=== PATIENT | female | born 1995 | race Caucasian/White ===

== ENCOUNTER 2018-01-29 18:17 | Emergency (ER) | payer MEDICAID ==
[~2018-01-29] VITALS: Ht 160 cm; Wt 80.0 kg
[~2018-01-29 18:17] MED LIST: PROC-8 PEG; [UNRECOGNIZED DRUG - CODE] PO
[2018-01-29 19:04] LABS: BASOPHILS % (AUTO) 0.5 % (0-1); EOSINOPHILS # (AUTO) 0.5 X10'3 (0-0.9); EOSINOPHILS % (AUTO) 5.5 % (0-6); HEMATOCRIT 42.5 % (35.0-45.0); HEMOGLOBIN 14.8 g/dl (12.0-16.0); LYMPHOCYTES # (AUTO) 1.8 X10'3 (1.1-4.8); LYMPHOCYTES % (AUTO) 19.8 % (21-51); MEAN CORPUSCULAR HEMOGLOBIN 30.7 PG (27.0-31.0); MEAN CORPUSCULAR HGB CONC 34.9 % (33.0-36.5); MEAN CORPUSCULAR VOLUME 88.1 FL (78-98); MEAN PLATELET VOLUME 8.3 FL (7.4-10.4); MONOCYTES # (AUTO) 0.8 X10'3 (0-0.9); MONOCYTES % (AUTO) 9.1 % (2-12); NEUTROPHILS # (AUTO) 5.8 X10'3 (1.8-7.7); NEUTROPHILS % (AUTO) 65.1 % (42-75); PLATELET COUNT 256 X10'3 (140-440); RED BLOOD COUNT 4.83 X10'6 (4.20-5.60); RED CELL DISTRIBUTION WIDTH 12.6 % (11.5-14.5); WHITE BLOOD COUNT 8.9 X10'3 (4.5-11.0)
[2018-01-29 19:24] LABS: ALANINE AMINOTRANSFERASE 28 U/L (12-78); ALBUMIN 4.2 G/DL (3.4-5.0); ALBUMIN/GLOBULIN RATIO 1.1 (1.1-1.5); ALKALINE PHOSPHATASE 80 IU/L (46-116); ANION GAP 11 (8-16); ASPARTATE AMINO TRANSFERASE 17 U/L (10-37); BILIRUBIN,TOTAL 0.3 MG/DL (0.1-1.0); BLOOD UREA NITROGEN 11 MG/DL (7-18); BUN/CREATININE RATIO 15.5 (6.6-38.0); CALCIUM 9.2 MG/DL (8.5-10.1); CHLORIDE 105 MMOL/L (99-107); CREATININE 0.71 MG/DL (0.40-0.90); GLUCOSE 98 MG/DL (70-104); POTASSIUM 4.2 MMOL/L (3.5-5.1); SODIUM 141 MMOL/L (135-145); TOTAL PROTEIN 8.1 G/DL (6.4-8.2); eGFR > 90 ML/MIN
[2018-01-29 19:34] LABS: CLARITY,URINE CLOUDY (Clear); COLOR,URINE YELLOW (Yellow); GLUCOSE, URINE NEGATIVE (Neg); KETONES,URINE NEGATIVE (Neg); LEUKOCYTE ESTERASE ,URINE NEGATIVE (Neg); NITRITES, URINE NEGATIVE (Neg); OCCULT BLOOD,URINE TRACE-INTACT (Neg); PROTEIN,URINE NEGATIVE (Neg); UROBILINOGEN,URINE 0.2 E.U/dL (0.2-1.0)
[2018-01-29 19:35] LABS: UA COLLECTION TYPE CLN CATCH MIDSTREAM
[2018-01-29 19:44] LABS: MUCUS STRANDS MANY /LPF (Neg); RBC,URINE 0-2 /HPF (0-2); SQUAMOUS EPITHELIAL CELL,UR MANY /LPF (FEW)
[2018-01-29 19:45] LABS: BACTERIA,URINE 3+ /HPF (Neg)
[2018-01-29] MEDS ORDERED: SPIR25TA3 PO (22:03)
[2018-01-29] MEDS ORDERED: METF500T PO (22:04)
[2018-01-29] MEDS ORDERED: ondansetron/PF 4mg/2ml inj IV ONE ×2 (22:15→23:55)
[2018-01-29] MEDS ORDERED: normal saline 1000ML IV soln IVB ONE (22:15)
[2018-01-29] MEDS ORDERED: ketorolac trometh. 30mg/ml inj. IV ONE (22:15)
[2018-01-29] MEDS ORDERED: HYDROmorphone 1 mg/ml syringe IV ONE (22:15)
[2018-01-29] MEDS ORDERED: HYDROmorphone inj. 0.5 MG/0.5 ML DISP.SYRIN IV ONE (22:20)
[2018-01-29] MEDS ORDERED: FLO0.4C PO (23:36)
[2018-01-29] MEDS ORDERED: HYDR-3965 PO (23:36)
[2018-01-30 00:03] VITALS: BP 133/86
== END 2018-01-30 00:09 | disposition home or self-care (01) ==
LOC: ER 18:18
DX: N20.0 Calculus of kidney (principal); G43.909 Migraine, unspecified, not intractable, without status migrainosus; Z79.84 Long term (current) use of oral hypoglycemic drugs; Z79.899 Other long term (current) drug therapy
CPT/HCPCS: 36415; 74176; 80053; 81001; 85025; 85610; 96374; 96375; 96376; 99285; J1170; J1885; J2405; J7030

== ENCOUNTER 2018-02-26 17:57 | Emergency (ER) | payer MEDICAID ==
[~2018-02-26] VITALS: Ht 160 cm; Wt 88.4 kg
[~2018-02-26 17:57] MED LIST changes: +FLO0.4C PO; +HYDR-3965 PO; +METF500T PO; +SPIR25TA3 PO
[2018-02-26 18:31] LABS: BASOPHILS # (AUTO) 0.1 X10'3 (0-0.2); BASOPHILS % (AUTO) 0.8 % (0-1); EOSINOPHILS # (AUTO) 0.3 X10'3 (0-0.9); EOSINOPHILS % (AUTO) 2.9 % (0-6); HEMATOCRIT 41.1 % (35.0-45.0); HEMOGLOBIN 14.1 g/dl (12.0-16.0); LYMPHOCYTES # (AUTO) 2.5 X10'3 (1.1-4.8); LYMPHOCYTES % (AUTO) 26.7 % (21-51); MEAN CORPUSCULAR HEMOGLOBIN 30.8 PG (27.0-31.0); MEAN CORPUSCULAR HGB CONC 34.4 % (33.0-36.5); MEAN CORPUSCULAR VOLUME 89.6 FL (78-98); MEAN PLATELET VOLUME 8.6 FL (7.4-10.4); MONOCYTES # (AUTO) 0.6 X10'3 (0-0.9); MONOCYTES % (AUTO) 6.8 % (2-12); NEUTROPHILS % (AUTO) 62.8 % (42-75); PLATELET COUNT 278 X10'3 (140-440); RED BLOOD COUNT 4.59 X10'6 (4.20-5.60); RED CELL DISTRIBUTION WIDTH 12.2 % (11.5-14.5); WHITE BLOOD COUNT 9.5 X10'3 (4.5-11.0)
[2018-02-26 18:40] LABS: INR 0.9 INR; PROTHROMBIN TIME 9.8 SECONDS (9.0-12.0)
[2018-02-26 18:44] LABS: CLARITY,URINE CLOUDY (Clear); COLOR,URINE YELLOW (Yellow); GLUCOSE, URINE NEGATIVE (Neg); KETONES,URINE NEGATIVE (Neg); LEUKOCYTE ESTERASE ,URINE MODERATE (Neg); NITRITES, URINE NEGATIVE (Neg); OCCULT BLOOD,URINE NEGATIVE (Neg); PH,URINE 5.5 (4.8-8.0); PROTEIN,URINE NEGATIVE (Neg); UROBILINOGEN,URINE 0.2 E.U/dL (0.2-1.0)
[2018-02-26 18:49] LABS: ALANINE AMINOTRANSFERASE 22 U/L (12-78); ALBUMIN 3.9 G/DL (3.4-5.0); ALBUMIN/GLOBULIN RATIO 1.1 (1.1-1.5); ALKALINE PHOSPHATASE 75 IU/L (46-116); ANION GAP 8 (8-16); ASPARTATE AMINO TRANSFERASE 13 U/L (10-37); BILIRUBIN,TOTAL 0.2 MG/DL (0.1-1.0); BLOOD UREA NITROGEN 12 MG/DL (7-18); CALCIUM 9.1 MG/DL (8.5-10.1); CHLORIDE 104 MMOL/L (99-107); GLUCOSE 92 MG/DL (70-104); SODIUM 140 MMOL/L (135-145); TOTAL CARBON DIOXIDE 27.6 MMOL/L (24-32); TOTAL PROTEIN 7.5 G/DL (6.4-8.2); eGFR 89 ML/MIN
[2018-02-26] MEDS ORDERED: ondansetron/PF 4mg/2ml inj IV STA (18:49)
[2018-02-26] MEDS ORDERED: normal saline 1000ml 1,000 ML IV ONE (18:50)
[2018-02-26 18:52] LABS: MUCUS STRANDS FEW /LPF (Neg); SQUAMOUS EPITHELIAL CELL,UR MANY /LPF (FEW)
[2018-02-26 18:53] LABS: BACTERIA,URINE 2+ /HPF (Neg); WBC,URINE 20-30 /HPF (0-4)
[2018-02-26 18:59] LABS: LIPASE 212 U/L (73-393)
[2018-02-26 18:59] LABS: URINE HCG NEGATIVE (NEG)
[2018-02-26 19:03] LABS: UA COLLECTION TYPE CLN CATCH MIDSTREAM
[2018-02-26] MEDS ORDERED: ketorolac tromethamine 15mg/ml inj. IV ONE (20:30)
[2018-02-26] MEDS ORDERED: proCHLORperazine 10 MG/2 ml inj IV ONE (20:30)
[2018-02-26] MEDS ORDERED: diphenhydrAMINE 50 mg/ml inj IV ONE (20:30)
[2018-02-26] MEDS ORDERED: normal saline 1000ML IV soln IVB ONE (20:30)
[2018-02-26 22:04] LABS: CLARITY,URINE SLIGHTLY CLOUDY (Clear); COLOR,URINE YELLOW (Yellow); GLUCOSE, URINE NEGATIVE (Neg); KETONES,URINE NEGATIVE (Neg); LEUKOCYTE ESTERASE ,URINE SMALL (Neg); NITRITES, URINE NEGATIVE (Neg); OCCULT BLOOD,URINE TRACE-INTACT (Neg); PH,URINE 5.5 (4.8-8.0); PROTEIN,URINE NEGATIVE (Neg); UROBILINOGEN,URINE 0.2 E.U/dL (0.2-1.0)
[2018-02-26 22:13] LABS: UA COLLECTION TYPE CLN CATCH MIDSTREAM
[2018-02-26 22:14] LABS: SQUAMOUS EPITHELIAL CELL,UR FEW /LPF (FEW)
[2018-02-26 22:15] LABS: BACTERIA,URINE 2+ /HPF (Neg)
[2018-02-26 22:32] VITALS: BP 135/90
== END 2018-02-26 22:33 | disposition home or self-care (01) ==
LOC: ER 17:58
DX: K80.20 Calculus of gallbladder without cholecystitis without obstruction (principal); G43.909 Migraine, unspecified, not intractable, without status migrainosus; Z79.899 Other long term (current) drug therapy
CPT/HCPCS: 36415; 71046; 76700; 80053; 81001; 81025; 83690; 85025; 85610; 87088; 96361; 96374; 96375; 99285; J0780; J1200; J1885; J2405; J7030

== ENCOUNTER 2019-02-22 21:00 | Emergency (ER) | payer MEDICAID ==
[~2019-02-22] VITALS: Ht 162.6 cm; Wt 98.7 kg
[~2019-02-22 21:00] MED LIST changes: -FLO0.4C PO; -HYDR-3965 PO; +IBUP-1986 PO; +ONDA8TAB9 PO; -SPIR25TA3 PO; +SPIR25TA5 PO
[2019-02-22] MEDS ORDERED: metoprolol tartrate 1mg/ml inj IV PRN (21:50)
[2019-02-22] MEDS ORDERED: METO50TA17 PO (21:50)
[2019-02-22 21:59] LABS: BASOPHILS # (AUTO) 0.1 X10'3 (0-0.2); BASOPHILS % (AUTO) 0.7 % (0-1); EOSINOPHILS # (AUTO) 0.5 X10'3 (0-0.9); EOSINOPHILS % (AUTO) 4.1 % (0-6); HEMATOCRIT 41.2 % (35.0-45.0); HEMOGLOBIN 13.8 g/dl (12.0-16.0); LYMPHOCYTES # (AUTO) 3.2 X10'3 (1.1-4.8); LYMPHOCYTES % (AUTO) 28.2 % (21-51); MEAN CORPUSCULAR HEMOGLOBIN 29.1 PG (27.0-31.0); MEAN CORPUSCULAR HGB CONC 33.5 g/dL (33.0-36.5); MEAN CORPUSCULAR VOLUME 86.9 FL (78-98); MEAN PLATELET VOLUME 8.2 FL (7.4-10.4); MONOCYTES # (AUTO) 0.9 X10'3 (0-0.9); MONOCYTES % (AUTO) 8.4 % (2-12); NEUTROPHILS # (AUTO) 6.6 X10'3 (1.8-7.7); NEUTROPHILS % (AUTO) 58.6 % (42-75); PLATELET COUNT 288 X10'3 (140-440); RED BLOOD COUNT 4.74 X10'6 (4.20-5.60); RED CELL DISTRIBUTION WIDTH 12.8 % (11.5-14.5); WHITE BLOOD COUNT 11.2 X10'3 (4.5-11.0)
[2019-02-22 22:07] LABS: ALANINE AMINOTRANSFERASE 77 U/L (12-78); ALBUMIN 3.8 G/DL (3.4-5.0); ALBUMIN/GLOBULIN RATIO 1.1 (1.1-1.5); ALKALINE PHOSPHATASE 93 IU/L (46-116); ANION GAP 7 (8-16); ASPARTATE AMINO TRANSFERASE 49 U/L (10-37); BILIRUBIN,TOTAL 0.2 MG/DL (0.1-1.0); BLOOD UREA NITROGEN 10 MG/DL (7-18); BUN/CREATININE RATIO 15.2 (6.6-38.0); CALCIUM 8.7 MG/DL (8.5-10.1); CHLORIDE 105 MMOL/L (99-107); CREATININE 0.66 MG/DL (0.40-0.90); GLUCOSE 92 MG/DL (70-104); POTASSIUM 3.5 MMOL/L (3.5-5.1); SODIUM 138 MMOL/L (135-145); TOTAL CARBON DIOXIDE 26.2 MMOL/L (24-32); TOTAL PROTEIN 7.4 G/DL (6.4-8.2); eGFR > 90 ML/MIN
[2019-02-22 22:09] LABS: INR 0.9 INR; PARTIAL THROMBOPLASTIN TIME 28 SECONDS (22-32)
[2019-02-22 22:57] VITALS: BP 153/98
== END 2019-02-22 22:58 | disposition home or self-care (01) ==
LOC: ER 21:00
DX: R00.0 Tachycardia, unspecified (principal); G43.909 Migraine, unspecified, not intractable, without status migrainosus; Z90.49 Acquired absence of other specified parts of digestive tract; Z79.899 Other long term (current) drug therapy
CPT/HCPCS: 36415; 71045; 80053; 84484; 85025; 85610; 85730; 93005; 96374; 99284; J3490

== ENCOUNTER 2020-07-27 15:09 | Emergency (ER) | payer MEDICAID ==
[~2020-07-27] VITALS: Ht 160 cm; Wt 103.0 kg
[~2020-07-27 15:09] MED LIST changes: +METO50TA17 PO
[2020-07-27 15:56] LABS: BASOPHILS # (AUTO) 0.1 X10'3 (0-0.2); BASOPHILS % (AUTO) 0.8 % (0-1); EOSINOPHILS # (AUTO) 0.3 X10'3 (0-0.9); HEMATOCRIT 41.4 % (35.0-45.0); LYMPHOCYTES # (AUTO) 2.6 X10'3 (1.1-4.8); LYMPHOCYTES % (AUTO) 23.4 % (21-51); MEAN CORPUSCULAR HEMOGLOBIN 29.6 PG (27.0-31.0); MEAN CORPUSCULAR HGB CONC 33.9 g/dL (33.0-36.5); MEAN CORPUSCULAR VOLUME 87.4 FL (78-98); MEAN PLATELET VOLUME 8.5 FL (7.4-10.4); MONOCYTES # (AUTO) 0.8 X10'3 (0-0.9); MONOCYTES % (AUTO) 7.1 % (2-12); NEUTROPHILS # (AUTO) 7.4 X10'3 (1.8-7.7); NEUTROPHILS % (AUTO) 65.7 % (42-75); PLATELET COUNT 261 X10'3 (140-440); RED BLOOD COUNT 4.74 X10'6 (4.20-5.60); RED CELL DISTRIBUTION WIDTH 12.4 % (11.5-14.5); WHITE BLOOD COUNT 11.3 X10'3 (4.5-11.0)
[2020-07-27] MEDS ORDERED: ondansetron/PF 4mg/2ml inj IV ONE ×2 (16:00→17:35)
[2020-07-27] MEDS ORDERED: normal saline 1000ML IV soln IVB ONE (16:00)
[2020-07-27 16:06] LABS: ALANINE AMINOTRANSFERASE 44 U/L (12-78); ALBUMIN/GLOBULIN RATIO 1.1 (1.1-1.5); ALKALINE PHOSPHATASE 95 IU/L (46-116); ANION GAP 9 (8-16); ASPARTATE AMINO TRANSFERASE 25 U/L (10-37); BILIRUBIN,TOTAL 0.3 MG/DL (0.1-1.0); BLOOD UREA NITROGEN 10 MG/DL (7-18); BUN/CREATININE RATIO 13.9 (6.6-38.0); CALCIUM 8.6 MG/DL (8.5-10.1); CHLORIDE 106 MMOL/L (99-107); CREATININE 0.72 MG/DL (0.40-0.90); GLUCOSE 89 MG/DL (70-104); LIPASE 240 U/L (73-393); POTASSIUM 3.6 MMOL/L (3.5-5.1); SODIUM 137 MMOL/L (135-145); TOTAL CARBON DIOXIDE 22.1 MMOL/L (24-32); TOTAL PROTEIN 7.6 G/DL (6.4-8.2); eGFR > 90 ML/MIN
[2020-07-27 16:07] LABS: URINE HCG NEGATIVE (NEG)
[2020-07-27 16:08] LABS: COLOR,URINE YELLOW (Yellow); GLUCOSE, URINE NEGATIVE (Neg); KETONES,URINE TRACE mg/dl (Neg); LEUKOCYTE ESTERASE ,URINE NEGATIVE (Neg); NITRITES, URINE NEGATIVE (Neg); OCCULT BLOOD,URINE NEGATIVE (Neg); PH,URINE 5.5 (4.8-8.0); PROTEIN,URINE NEGATIVE (Neg); UROBILINOGEN,URINE 0.2 E.U/dL (0.2-1.0)
[2020-07-27 16:13] LABS: CLARITY,URINE SLIGHTLY CLOUDY (Clear); UA COLLECTION TYPE CLN CATCH MIDSTREAM
[2020-07-27 16:14] LABS: BACTERIA,URINE 1+ /HPF (Neg); MUCUS STRANDS MANY /LPF (Neg); RBC,URINE NONE SEEN /HPF (0-2); SQUAMOUS EPITHELIAL CELL,UR MANY /LPF (FEW); WBC,URINE 0-4 /HPF (0-4)
[2020-07-27] MEDS: morphine 4 MG/ML inj SYRINge IV PRN ×2 (16:22→18:18)
--- NOTE | 2020-07-27 17:02 | NUR ---
US TECH AT BEDSIDE.
[2020-07-27] MEDS ORDERED: proMETHazine DM oral syrup 5ml UD PO ONE (17:45)
[2020-07-27] MEDS ORDERED: diphenhydrAMINE 25mg capsule PO ONE (17:45)
[2020-07-27 18:43] VITALS: BP 136/72
--- NOTE | 2020-07-27 18:44 | NUR ---
pts hr is high at 128, i checked with and this his her baseline, ok with d/c
== END 2020-07-27 18:45 | disposition home or self-care (01) ==
LOC: ER 15:10
DX: R10.2 Pelvic and perineal pain (principal); R10.32 Left lower quadrant pain; R10.31 Right lower quadrant pain; R11.0 Nausea; G43.909 Migraine, unspecified, not intractable, without status migrainosus; Z90.49 Acquired absence of other specified parts of digestive tract; Z98.890 Other specified postprocedural states; Z79.899 Other long term (current) drug therapy
CPT/HCPCS: 36415; 76830; 76856; 80053; 81001; 81025; 83690; 85025; 93976; 96374; 96375; 96376; 99284; J2270; J2405; J7030; Q0163

== ENCOUNTER 2021-06-29 15:52 | Emergency (ER) | payer MEDICAID ==
[~2021-06-29] VITALS: Ht 160 cm; Wt 86.4 kg
[2021-06-29 16:56] LABS: BASOPHILS # (AUTO) 0.1 X10'3 (0-0.2); BASOPHILS % (AUTO) 0.6 % (0-1); EOSINOPHILS # (AUTO) 0.4 X10'3 (0-0.9); EOSINOPHILS % (AUTO) 3.4 % (0-6); HEMATOCRIT 43.9 % (35.0-45.0); HEMOGLOBIN 14.8 g/dl (12.0-16.0); LYMPHOCYTES # (AUTO) 2.6 X10'3 (1.1-4.8); LYMPHOCYTES % (AUTO) 25.1 % (21-51); MEAN CORPUSCULAR HEMOGLOBIN 29.9 PG (27.0-31.0); MEAN CORPUSCULAR HGB CONC 33.6 g/dL (33.0-36.5); MEAN CORPUSCULAR VOLUME 89.1 FL (78-98); MEAN PLATELET VOLUME 8.3 FL (7.4-10.4); MONOCYTES % (AUTO) 9.3 % (2-12); NEUTROPHILS # (AUTO) 6.5 X10'3 (1.8-7.7); NEUTROPHILS % (AUTO) 61.6 % (42-75); PLATELET COUNT 279 X10'3 (140-440); RED BLOOD COUNT 4.93 X10'6 (4.20-5.60); RED CELL DISTRIBUTION WIDTH 12.5 % (11.5-14.5); WHITE BLOOD COUNT 10.5 X10'3 (4.5-11.0)
[2021-06-29 17:16] LABS: ALANINE AMINOTRANSFERASE 27 U/L (12-78); ALBUMIN 4.4 G/DL (3.4-5.0); ALBUMIN/GLOBULIN RATIO 1.2 (1.1-1.5); ALKALINE PHOSPHATASE 97 IU/L (46-116); ANION GAP 12 (8-16); ASPARTATE AMINO TRANSFERASE 15 U/L (10-37); BILIRUBIN,TOTAL 0.3 MG/DL (0.1-1.0); BLOOD UREA NITROGEN 11 MG/DL (7-18); BUN/CREATININE RATIO 15.3 (6.6-38.0); CALCIUM 8.8 MG/DL (8.5-10.1); CHLORIDE 108 MMOL/L (99-107); CREATININE 0.72 MG/DL (0.40-0.90); GLUCOSE 91 MG/DL (70-104); LIPASE 234 U/L (73-393); POTASSIUM 3.6 MMOL/L (3.5-5.1); SODIUM 143 MMOL/L (135-145); TOTAL CARBON DIOXIDE 22.7 MMOL/L (24-32); TOTAL PROTEIN 8.2 G/DL (6.4-8.2); eGFR > 90 ML/MIN
[2021-06-29] MEDS ORDERED: ketorolac tromethamine 15mg/ml inj. IM ONE (18:10)
[2021-06-29 18:23] LABS: URINE HCG NEGATIVE (NEG)
[2021-06-29 18:49] LABS: UA COLLECTION TYPE CLN CATCH MIDSTREAM
[2021-06-29 18:50] LABS: CLARITY,URINE SLIGHTLY CLOUDY (Clear); COLOR,URINE YELLOW (Yellow); GLUCOSE, URINE NEGATIVE (Neg); PH,URINE 6.5 (4.8-8.0); PROTEIN,URINE NEGATIVE (Neg)
[2021-06-29 18:51] LABS: BACTERIA,URINE NONE SEEN /HPF (Neg); KETONES,URINE NEGATIVE (Neg); LEUKOCYTE ESTERASE ,URINE NEGATIVE (Neg); MUCUS STRANDS FEW /LPF (Neg); NITRITES, URINE NEGATIVE (Neg); OCCULT BLOOD,URINE NEGATIVE (Neg); RBC,URINE NONE SEEN /HPF (0-2); SQUAMOUS EPITHELIAL CELL,UR MODERATE /LPF (FEW); UROBILINOGEN,URINE 0.2 E.U/dL (0.2-1.0); WBC,URINE 0-4 /HPF (0-4)
[2021-06-29 20:49] VITALS: BP 128/88
== END 2021-06-29 20:50 | disposition home or self-care (01) ==
LOC: ER 15:53
DX: R10.31 Right lower quadrant pain (principal); R10.2 Pelvic and perineal pain; G43.909 Migraine, unspecified, not intractable, without status migrainosus; Z90.49 Acquired absence of other specified parts of digestive tract; Z79.899 Other long term (current) drug therapy
CPT/HCPCS: 36415; 74176; 76856; 80053; 81001; 81025; 83690; 85025; 93976; 96372; 99285; J1885

== ENCOUNTER 2022-03-05 14:27 | Emergency (ER) | payer MEDICAID ==
[~2022-03-05] VITALS: Ht 160 cm; Wt 77.3 kg
[2022-03-05 14:37] VITALS: BP 157/92
[2022-03-05] MEDS ORDERED: GUAI400T92 PO (17:10)
[2022-03-05] MEDS ORDERED: ALBU8HFA PO (17:10)
[2022-03-05] MEDS ORDERED: AMOX-117 PO (17:10)
[2022-03-05] MEDS ORDERED: amox tr/potassium clavulanate 875/125mg TAB PO ONE (17:15)
--- NOTE | 2022-03-05 17:52 | NUR ---
po med given
== END 2022-03-05 17:53 | disposition home or self-care (01) ==
LOC: ER 14:28
DX: H66.93 Otitis media, unspecified, bilateral (principal); H92.03 Otalgia, bilateral; J01.00 Acute maxillary sinusitis, unspecified; J06.9 Acute upper respiratory infection, unspecified; R05.9 Cough, unspecified; R06.02 Shortness of breath; G43.909 Migraine, unspecified, not intractable, without status migrainosus; Z90.49 Acquired absence of other specified parts of digestive tract; Z98.890 Other specified postprocedural states; Z79.2 Long term (current) use of antibiotics; Z79.899 Other long term (current) drug therapy
CPT/HCPCS: 99283; 99284

== ENCOUNTER 2022-03-26 17:03 | Emergency (ER) | payer MEDICAID ==
[~2022-03-26] VITALS: Ht 160 cm; Wt 90.0 kg
[~2022-03-26 17:03] MED LIST changes: +ALBU8HFA PO; +GUAI400T92 PO
[2022-03-26 17:32] LABS: BASOPHILS # (AUTO) 0.1 X10'3 (0-0.2); BASOPHILS % (AUTO) 0.8 % (0-1); EOSINOPHILS # (AUTO) 0.8 X10'3 (0-0.9); EOSINOPHILS % (AUTO) 7.2 % (0-6); HEMOGLOBIN 14.7 g/dl (12.0-16.0); LYMPHOCYTES # (AUTO) 2.5 X10'3 (1.1-4.8); LYMPHOCYTES % (AUTO) 24.1 % (21-51); MEAN CORPUSCULAR HEMOGLOBIN 29.4 PG (27.0-31.0); MEAN CORPUSCULAR HGB CONC 34.1 g/dL (33.0-36.5); MEAN PLATELET VOLUME 8.1 FL (7.4-10.4); MONOCYTES # (AUTO) 0.7 X10'3 (0-0.9); NEUTROPHILS # (AUTO) 6.4 X10'3 (1.8-7.7); NEUTROPHILS % (AUTO) 60.9 % (42-75); PLATELET COUNT 295 X10'3 (140-440); RED CELL DISTRIBUTION WIDTH 12.5 % (11.5-14.5); WHITE BLOOD COUNT 10.5 X10'3 (4.5-11.0)
[2022-03-26 17:49] LABS: ALANINE AMINOTRANSFERASE 21 U/L (12-78); ALBUMIN 4.4 G/DL (3.4-5.0); ALBUMIN/GLOBULIN RATIO 1.2 (1.1-1.5); ALKALINE PHOSPHATASE 83 IU/L (46-116); AMYLASE 71 U/L (25-115); ANION GAP 13 (8-16); ASPARTATE AMINO TRANSFERASE 14 U/L (10-37); BILIRUBIN,TOTAL 0.3 MG/DL (0.1-1.0); BLOOD UREA NITROGEN 10 MG/DL (7-18); BUN/CREATININE RATIO 13.9 (6.6-38.0); CHLORIDE 103 MMOL/L (99-107); CREATININE 0.72 MG/DL (0.40-0.90); GLUCOSE 99 MG/DL (70-104); LIPASE 212 U/L (73-393); POTASSIUM 4.1 MMOL/L (3.5-5.1); SODIUM 140 MMOL/L (135-145); TOTAL CARBON DIOXIDE 23.9 MMOL/L (24-32); TOTAL PROTEIN 8.1 G/DL (6.4-8.2); eGFR > 90 ML/MIN
[2022-03-26 19:48] LABS: CLARITY,URINE CLEAR (Clear); COLOR,URINE YELLOW (Yellow); GLUCOSE, URINE NEGATIVE (Neg); KETONES,URINE NEGATIVE (Neg); LEUKOCYTE ESTERASE ,URINE SMALL (Neg); NITRITES, URINE NEGATIVE (Neg); OCCULT BLOOD,URINE NEGATIVE (Neg); PH,URINE 5.5 (4.8-8.0); PROTEIN,URINE NEGATIVE (Neg); UROBILINOGEN,URINE 0.2 E.U/dL (0.2-1.0)
[2022-03-26 19:49] LABS: URINE HCG NEGATIVE (NEG)
[2022-03-26 19:50] LABS: UA COLLECTION TYPE CLN CATCH MIDSTREAM
[2022-03-26 19:57] LABS: BACTERIA,URINE FEW /HPF (Neg); RBC,URINE 0-2 /HPF (0-2); SQUAMOUS EPITHELIAL CELL,UR MANY /LPF (FEW); WBC,URINE 0-4 /HPF (0-4)
[2022-03-26] MEDS ORDERED: cephalexin 250mg capsule PO ONE (21:50)
[2022-03-26] MEDS ORDERED: ONDA4TAB12 PO (22:07)
[2022-03-26] MEDS ORDERED: CEPH-585 PO (22:07)
[2022-03-26 22:09] VITALS: BP 141/100
== END 2022-03-26 22:12 | disposition home or self-care (01) ==
LOC: ER 17:03
DX: N39.0 Urinary tract infection, site not specified (principal); G43.909 Migraine, unspecified, not intractable, without status migrainosus; Z90.49 Acquired absence of other specified parts of digestive tract; Z79.899 Other long term (current) drug therapy
CPT/HCPCS: 36415; 74176; 76856; 80053; 81001; 81025; 82150; 83690; 85025; 93976; 99284

== ENCOUNTER 2022-11-25 21:45 | Emergency (ER) | payer MEDICAID ==
[~2022-11-25] VITALS: Ht 160 cm; Wt 90.9 kg
[~2022-11-25 21:45] MED LIST changes: -ALBU8HFA PO; +CEPH-585 PO; +ONDA4TAB12 PO
[2022-11-25 21:49] VITALS: BP 154/98
[2022-11-26] MEDS ORDERED: acetaminophen 325mg tablet PO ONE (00:55)
[2022-11-26] MEDS ORDERED: ondansetron 4mg rapidly disintigrating tab PO ONE (00:55)
[2022-11-26] MEDS ORDERED: morphine 4 MG/ML inj SYRINge IM ONE (00:55)
[2022-11-26] MEDS ORDERED: ketorolac trometh inj. 60 MG/2 ML VIAL IM ONE (00:55)
[2022-11-26] MEDS ORDERED: orphenadrine citrate 60mg/2ml inj. IM ONE (00:55)
[2022-11-26] MEDS ORDERED: ONDA8TAB13 PO (01:59)
[2022-11-26] MEDS ORDERED: HYDR-3965 PO (01:59)
[2022-11-26] MEDS ORDERED: CYCL-1 PO (01:59)
== END 2022-11-26 02:13 | disposition home or self-care (01) ==
LOC: ER 21:46
DX: M54.2 Cervicalgia (principal); G43.909 Migraine, unspecified, not intractable, without status migrainosus; Z90.49 Acquired absence of other specified parts of digestive tract
CPT/HCPCS: 72040; 96372; 99284; J1885; J2270; J2360

== ENCOUNTER 2023-02-24 22:45 | Emergency (ER) | payer MEDICAID ==
[~2023-02-24] VITALS: Ht 160 cm; Wt 180.0 kg
[~2023-02-24 22:45] MED LIST changes: +CYCL-1 PO; +ONDA8TAB13 PO
[2023-02-24 23:13] LABS: BASOPHILS % (AUTO) 0.2 % (0-1); EOSINOPHILS # (AUTO) 0.1 X10'3 (0-0.9); EOSINOPHILS % (AUTO) 1.2 % (0-6); HEMATOCRIT 43.6 % (35.0-45.0); LYMPHOCYTES # (AUTO) 1.4 X10'3 (1.1-4.8); LYMPHOCYTES % (AUTO) 15.1 % (21-51); MEAN CORPUSCULAR HEMOGLOBIN 30.5 PG (27.0-31.0); MEAN CORPUSCULAR HGB CONC 34.3 g/dL (33.0-36.5); MEAN CORPUSCULAR VOLUME 88.9 FL (78-98); MEAN PLATELET VOLUME 7.9 FL (7.4-10.4); MONOCYTES # (AUTO) 0.7 X10'3 (0-0.9); MONOCYTES % (AUTO) 7.4 % (2-12); NEUTROPHILS % (AUTO) 76.1 % (42-75); PLATELET COUNT 245 X10'3 (140-440); RED CELL DISTRIBUTION WIDTH 12.9 % (11.5-14.5); WHITE BLOOD COUNT 9.2 X10'3 (4.5-11.0)
[2023-02-24 23:27] LABS: ALANINE AMINOTRANSFERASE 22 U/L (12-78); ALBUMIN 3.9 G/DL (3.4-5.0); ALBUMIN/GLOBULIN RATIO 1.1 (1.1-1.5); ALKALINE PHOSPHATASE 76 IU/L (46-116); ANION GAP 10 (8-16); ASPARTATE AMINO TRANSFERASE 12 U/L (10-37); BILIRUBIN,TOTAL 0.4 MG/DL (0.1-1.0); BLOOD UREA NITROGEN 9 MG/DL (7-18); BUN/CREATININE RATIO 12.3 (10.0-20.0); CALCIUM 8.2 MG/DL (8.5-10.1); CHLORIDE 102 MMOL/L (99-107); CREATININE 0.73 MG/DL (0.40-0.90); GLUCOSE 91 MG/DL (70-104); LIPASE 111 U/L (73-393); POTASSIUM 3.3 MMOL/L (3.5-5.1); SODIUM 137 MMOL/L (135-145); TOTAL CARBON DIOXIDE 24.9 MMOL/L (24-32); TOTAL PROTEIN 7.5 G/DL (6.4-8.2); eGFR > 90 ML/MIN
[2023-02-24 23:40] LABS: URINE HCG NEGATIVE (NEG)
[2023-02-24 23:41] LABS: CLARITY,URINE CLEAR (Clear); COLOR,URINE YELLOW (Yellow); GLUCOSE, URINE NEGATIVE (Neg); KETONES,URINE NEGATIVE (Neg); LEUKOCYTE ESTERASE ,URINE NEGATIVE (Neg); NITRITES, URINE NEGATIVE (Neg); OCCULT BLOOD,URINE NEGATIVE (Neg); PROTEIN,URINE NEGATIVE (Neg); UROBILINOGEN,URINE 0.2 E.U/dL (0.2-1.0)
[2023-02-24 23:43] LABS: UA COLLECTION TYPE CLN CATCH MIDSTREAM
[2023-02-24] MEDS ORDERED: normal saline 500ml IV soln 500 ML IV ONE (23:50)
[2023-02-25] MEDS ORDERED: iohexol 300mg/ml 100ml inj. ONE (00:05)
[2023-02-25] MEDS ORDERED: ondansetron/PF 4mg/2ml inj IV ONE (01:05)
[2023-02-25] MEDS ORDERED: POTASSIUM BICARB 20meq eff tab 20 MEQ TABLET.EFF PO SCH (01:05)
[2023-02-25] MEDS ORDERED: ONDA4TAB12 PO (01:05)
[2023-02-25] MEDS ORDERED: pantoprazole 40mg IV 40 MG in normal saline 100ml IV soln 100 ML IV ONE (01:05)
[2023-02-25] MEDS ORDERED: pantoprazole 40MG/NS 100ML BAG 100 ML IV ONE (01:13)
[2023-02-25] MEDS ORDERED: PANTOPRAZOLE IV ONE (01:13)
[2023-02-25] MEDS ORDERED: [UNRECOGNIZED DRUG - OTHER] IV ONE (01:13)
[2023-02-25] MEDS ORDERED: potassium Cl 20 mEq SR tablet PO STA (01:53)
--- NOTE | 2023-02-25 01:53 | NUR ---
pt could not tolerate oral efferk. will try kdur instead
[2023-02-25 02:00] VITALS: BP 128/82
== END 2023-02-25 02:11 | disposition home or self-care (01) ==
LOC: ER 22:46
DX: R11.2 Nausea with vomiting, unspecified (principal); R19.7 Diarrhea, unspecified; G43.909 Migraine, unspecified, not intractable, without status migrainosus; Z90.49 Acquired absence of other specified parts of digestive tract
CPT/HCPCS: 36415; 74177; 80053; 81003; 81025; 83690; 85025; 93005; 96374; 96375; 99285; C9113; J2405; J3490; J7040; Q9967

== ENCOUNTER 2023-04-16 22:11 | Emergency (ER) | payer MEDICAID ==
[~2023-04-16] VITALS: Ht 162.6 cm; Wt 86.3 kg
[~2023-04-16 22:11] MED LIST changes: -CEPH-585 PO
[2023-04-16 22:15] VITALS: BP 110/68
[2023-04-17] MEDS ORDERED: ketorolac trometh inj. 60 MG/2 ML VIAL IM ONE (02:00)
--- NOTE | 2023-04-17 02:33 | NUR ---
PER DR MIJARES, KNEE IMMOBILIZER PLACED AND PT FITTED FOR CRUTCHES. BEVERLEY OCHOA TECH EDUCATING PT ON AMBULATION WITH CRUTCHES
== END 2023-04-17 02:39 | disposition home or self-care (01) ==
LOC: ER 22:12
DX: M25.561 Pain in right knee (principal); G43.909 Migraine, unspecified, not intractable, without status migrainosus; Z79.899 Other long term (current) drug therapy
CPT/HCPCS: 73502; 73551; 73564; 96372; 99284; J1885

== ENCOUNTER 2023-05-16 14:23 | Emergency (ER) | payer MEDICAID ==
[~2023-05-16] VITALS: Ht 160 cm; Wt 95.6 kg
[2023-05-16 14:34] VITALS: BP 124/61; PULSE 125; O2SAT 100
[2023-05-16] MEDS ORDERED: ondansetron 4mg rapidly disintigrating tab PO ONE (15:25)
[2023-05-16] MEDS ORDERED: HYDROcodone/acetaminophen 5mg/325mg tablet PO ONE (15:35)
[2023-05-16 15:38] VITALS: RESP 18
== END 2023-05-16 15:42 | disposition home or self-care (01) ==
LOC: ER 14:24
DX: S43.51XA Sprain of right acromioclavicular joint, initial encounter (principal); S83.206A Unspecified tear of unspecified meniscus, current injury, right knee, initial encounter; G43.909 Migraine, unspecified, not intractable, without status migrainosus; Z79.899 Other long term (current) drug therapy; Z79.1 Long term (current) use of non-steroidal anti-inflammatories (NSAID); W10.8XXA Fall (on) (from) other stairs and steps, initial encounter; Y93.89 Activity, other specified; Y92.89 Other specified places as the place of occurrence of the external cause; Y99.8 Other external cause status
CPT/HCPCS: 99284

== ENCOUNTER → 2023-11-30 | Emergency (ER) | payer MEDICAID ==
[~2023-11-30] VITALS: Ht 160 cm; Wt 90.9 kg
[~2023-11-30] MED LIST changes: +ALBU8HFA INH; +METO10TA3 PO
[2023-11-30 15:56] VITALS: BP 138/85; PULSE 84; RESP 18; TEMP 97.3; O2SAT 98
== END | disposition home or self-care (01) ==
LOC: ER 15:41
DX: J06.9 Acute upper respiratory infection, unspecified (principal); G43.909 Migraine, unspecified, not intractable, without status migrainosus; Z79.899 Other long term (current) drug therapy; Z79.1 Long term (current) use of non-steroidal anti-inflammatories (NSAID); Z90.49 Acquired absence of other specified parts of digestive tract
CPT/HCPCS: 36415; 71045; 87634; 99284

== ENCOUNTER 2024-02-03 12:51 | Emergency (ER) | payer MEDICAID ==
[~2024-02-03] VITALS: Ht 160 cm; Wt 100.5 kg
[~2024-02-03 12:51] MED LIST changes: -ALBU8HFA INH; -METO10TA3 PO
[2024-02-03 13:00] VITALS: BP 186/139; PULSE 116; O2SAT 100
[2024-02-03] MEDS: ondansetron 4mg rapidly disintigrating tab PO ONE ×2 (13:46→15:25)
[2024-02-03 15:27] VITALS: RESP 16
[2024-02-03] MEDS: ketorolac trometh. 30mg/ml inj. IM ONE (15:27)
[2024-02-03] MEDS ORDERED: HYDR-3965 PO (15:40)
[2024-02-03] MEDS ORDERED: IBUP-1985 PO (15:40)
[2024-02-03] MEDS ORDERED: ONDA8TAB13 PO (15:40)
[2024-02-03 15:50] VITALS: TEMP 97.8
== END 2024-02-03 15:54 | disposition home or self-care (01) ==
LOC: ER 12:52
DX: R10.2 Pelvic and perineal pain (principal); G43.909 Migraine, unspecified, not intractable, without status migrainosus; Z79.899 Other long term (current) drug therapy; Z79.2 Long term (current) use of antibiotics; Z90.49 Acquired absence of other specified parts of digestive tract
CPT/HCPCS: 76856; 93976; 96372; 99285; J1885

== ENCOUNTER 2025-01-16 11:48 | Emergency (ER) | payer MEDICAID ==
[~2025-01-16] VITALS: Ht 162.6 cm; Wt 103.0 kg
[~2025-01-16 11:48] MED LIST changes: +IBUP-1985 PO; +ONDA-243 PO; +ONDA-245 PO; -ONDA4TAB12 PO; -ONDA8TAB13 PO
[2025-01-16 11:54] VITALS: TEMP 97.6
[2025-01-16 12:35] LABS: EOSINOPHILS # (AUTO) 0.3 X10'3 (0-0.9); MEAN CORPUSCULAR HEMOGLOBIN 29.3 PG (27.0-31.0); MONOCYTES # (AUTO) 0.5 X10'3 (0-0.9); WHITE BLOOD COUNT 8.5 X10'3 (4.5-11.0)
[2025-01-16 12:36] LABS: BASOPHILS # (AUTO) 0.1 X10'3 (0-0.2); BASOPHILS % (AUTO) 0.7 % (0-1); EOSINOPHILS % (AUTO) 3.1 % (0-6); HEMATOCRIT 45.8 % (35.0-45.0); HEMOGLOBIN 15.2 g/dl (12.0-16.0); MEAN CORPUSCULAR HGB CONC 33.2 g/dL (33.0-36.5); MEAN CORPUSCULAR VOLUME 88.3 FL (78-98); MONOCYTES % (AUTO) 6.1 % (2-12); NEUTROPHILS # (AUTO) 5.7 X10'3 (1.8-7.7); NEUTROPHILS % (AUTO) 67.1 % (42-75); PLATELET COUNT 285 X10'3 (140-440); RED BLOOD COUNT 5.18 X10'6 (4.20-5.60); RED CELL DISTRIBUTION WIDTH 12.8 % (11.5-14.5)
[2025-01-16 12:49] LABS: ALANINE AMINOTRANSFERASE 43 U/L (12-78); ALBUMIN 3.9 G/DL (3.4-5.0); ALKALINE PHOSPHATASE 103 IU/L (46-116); ANION GAP 9 (8-16); ASPARTATE AMINO TRANSFERASE 25 U/L (10-37); BILIRUBIN,TOTAL 0.4 MG/DL (0.1-1.0); BLOOD UREA NITROGEN 9 MG/DL (7-18); BUN/CREATININE RATIO 13.6 (10.0-20.0); CALCIUM 8.5 MG/DL (8.5-10.1); CHLORIDE 106 MMOL/L (99-107); CREATININE 0.66 MG/DL (0.40-0.90); GLUCOSE 101 MG/DL (70-104); POTASSIUM 4.1 MMOL/L (3.5-5.1); SODIUM 139 MMOL/L (135-145); TOTAL CARBON DIOXIDE 24.1 MMOL/L (24-32); eCRCL 108 ML/MIN; eGFR > 90 ML/MIN
[2025-01-16 12:57] LABS: PRO BRAIN NATRIURETIC PEPTIDE < 30 PG/ML (0-125)
[2025-01-16] MEDS ORDERED: meclizine 12.5mg tablet PO ONE (14:35)
[2025-01-16] MEDS: normal saline 1000ml 1,000 ML IV ONE (14:51)
[2025-01-16] MEDS: diazepam inj 5 MG/ML inj. IV ONE ×2 (15:01→16:40)
[2025-01-16] MEDS: OLANZapine **IM** 10 mg inj. IM ONE (15:02)
[2025-01-16] MEDS ORDERED: dexamethasone 4mg/ml inj IV SCH (16:20)
[2025-01-16] MEDS: dexamethasone 4mg/ml inj IV ONE (16:40)
[2025-01-16] MEDS: ketorolac trometh 15mg/ml vial 15 MG/ML ML IV ONE (16:40)
[2025-01-16 18:00] VITALS: BP 133/87; PULSE 74; RESP 16; O2SAT 98
== END 2025-01-16 17:30 | disposition home or self-care (01) ==
LOC: ER 11:49
DX: G43.909 Migraine, unspecified, not intractable, without status migrainosus (principal); R42 Dizziness and giddiness; Z90.49 Acquired absence of other specified parts of digestive tract; Z79.1 Long term (current) use of non-steroidal anti-inflammatories (NSAID); Z79.84 Long term (current) use of oral hypoglycemic drugs; Z79.899 Other long term (current) drug therapy
CPT/HCPCS: 36415; 71045; 80053; 82948; 83880; 84484; 85025; 93005; 96361; 96372; 96374; 96375; 96376; 99285; J1100; J1885; J3360; J3490; J7030

== ENCOUNTER 2025-01-19 12:47 | Emergency (ER) | payer MEDICAID ==
[~2025-01-19] VITALS: Ht 160 cm; Wt 100.8 kg
[2025-01-19] MEDS: normal saline 1000ml 1,000 ML IV ONE (15:38)
[2025-01-19] MEDS: ketorolac trometh 30MG/ML vial 30 MG/ML VIAL IV ONE (15:42)
[2025-01-19] MEDS: diphenhydrAMINE 50 mg/ml inj IV ONE (15:42)
[2025-01-19] MEDS: metoclopramide 5 mg/ml inj IV ONE (15:42)
[2025-01-19] MEDS ORDERED: BUTA-245 PO (16:19)
[2025-01-19 16:34] VITALS: BP 124/68; PULSE 74; RESP 18; TEMP 98.5; O2SAT 99
== END 2025-01-19 16:35 | disposition home or self-care (01) ==
LOC: ER 12:48
DX: G43.909 Migraine, unspecified, not intractable, without status migrainosus (principal); Z90.49 Acquired absence of other specified parts of digestive tract
CPT/HCPCS: 96361; 96374; 96375; 99284; J1200; J1885; J2765; J7030

== ENCOUNTER 2025-01-21 11:15 | Emergency (ER) | payer MEDICAID ==
[~2025-01-21] VITALS: Ht 160 cm; Wt 101.5 kg
[~2025-01-21 11:15] MED LIST changes: +BUTA-245 PO
[2025-01-21 11:19] VITALS: TEMP 98.4
[2025-01-21] MEDS: ketorolac trometh 30MG/ML vial 30 MG/ML VIAL IM ONE (13:31)
[2025-01-21 13:38] VITALS: BP 141/102; PULSE 84; RESP 16; O2SAT 96
== END 2025-01-21 14:00 | disposition home or self-care (01) ==
LOC: ER 11:16
DX: G43.909 Migraine, unspecified, not intractable, without status migrainosus (principal); Z90.49 Acquired absence of other specified parts of digestive tract; Z79.1 Long term (current) use of non-steroidal anti-inflammatories (NSAID); Z79.84 Long term (current) use of oral hypoglycemic drugs; Z79.899 Other long term (current) drug therapy
CPT/HCPCS: 96372; 99283; J1885

== ENCOUNTER 2025-04-09 13:13 | Inpatient (IN) | payer MEDICAID ==
[~2025-04-09] VITALS: Ht 162.6 cm; Wt 93.6 kg
[2025-04-09] MEDS: methylPREDNISolone sod succ/PF 40mg inj. IV ONE ×2 (08:00→21:11)
--- NOTE | 2025-04-09 13:31 | Physician Documentation ---
History of Present Illness ~ Stated Complaint: STUNG BY WASP Time Seen by MD: 13:26 OK to notify your PCP?: Yes [facility] HPI 29-year-old female presenting for acute onset shortness of breath and difficulty breathing after she was stung by a wasp about 30 minutes prior to arrival. She states that her throat feels like it is closing up. The wasp stung her on her left chest wall area. No other complaints. Medication Reconciliation Allergies: Uncoded Allergies: BEE/WASP (Allergy, Severe, 04/09/25) Scheduled Metoprolol Tartrate* (Metoprolol Tartrate*), 1 TAB PO TID Ondansetron 8mg ODT (Ondansetron Odt), 1 TAB PO Q8H Scheduled PRN Butalb/Acetaminophen/Caffeine (Fioricet Tab), 1 TAB PO Q6H PRN for headache Miscellaneous Medications Sumatriptan Succinate (Sumatriptan Succinate), (Reported) Discontinued Medications Atenolol (Atenolol), 1 CAP PO BID Discontinued Reason: patient no longer taking Cyclobenzaprine* (Cyclobenzaprine*), 1 TAB PO Q8H Discontinued Reason: patient no longer taking Guaifenesin (Guaifenesin), 1 TAB PO Q8H Discontinued Reason: patient no longer taking Ibuprofen (Ibuprofen), 1 TAB PO Q8H Discontinued Reason: patient no longer taking Ibuprofen (Ibuprofen), 1 TAB PO Q6H Discontinued Reason: patient no longer taking Metformin Hcl* (Glucophage*), 1 TAB PO Q12H, (Reported) Discontinued Reason: patient no longer taking ONDANSETRON ODT 4mg tablet (Ondansetron Odt), 1 TABLET PO Q6H Discontinued Reason: patient no longer taking ONDANSETRON ODT 4mg tablet (Ondansetron Odt), 1 TABLET PO Q6H PRN for nausea/vomiting Discontinued Reason: patient no longer taking Ondansetron (Zofran Odt), 4 MG PO QID PRN for nausea/vomiting Discontinued Reason: patient no longer taking Ondansetron 8mg ODT (Ondansetron Odt), 1 TAB PO Q6H Discontinued Reason: patient no longer taking Ondansetron 8mg ODT (Ondansetron Odt), 1 TAB PO Q6H Discontinued Reason: patient no longer taking Prochlorperazine Maleate (Compazine), 1 TAB PEG Q8HPRN PRN for HEADACHE, NAUSEA Discontinued Reason: patient no longer taking Spironolactone (Spironolactone), 1 TAB PO BID, (Reported) Discontinued Reason: patient no longer taking Past Medical History Past Medical History: Headache, Migraine, *CARDIOVASCULAR*, *RENAL/* Past Surgical History: cholecystectomy, other Alcohol Use: None Drug Use: none Lives with: Mother Lives In: Home 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 Review of Systems All Other Systems at this time: Reviewed and Negative Progress Results/Orders Results/Orders Orders - JACQUELINE MOSES MD * Rt Notification Q1H (04/09/25 13:26) Chest,Single View (04/09/25 13:29) MG (04/09/25 13:29) CMP (04/09/25 13:29) Cta Chest Pe (04/09/25 16:26) Page Hospitalist (04/09/25 17:43) Fill Out Med Reconciliation (04/09/25 17:43) Hgb A1c (04/09/25 13:34) Completed Orders - JACQUELINE MOSES MD Epinephrine Inj (Adrenalin Inj) (04/09/25 13:26) Racepinephrine Nebule (S-2 Nebule) (04/09/25 13:30) Dexamethasone Inj (Decadron 10mg/Ml Inj) (04/09/25 13:26) Famotidine/Pf Iv Inj (Pepcid Iv Inj) (04/09/25 13:30) Diphenhydramine Inj (Benadryl Inj.) (04/09/25 13:30) Electrocardiogram (04/09/25 13:29) Cbc/Diff (04/09/25 13:29) Chest,Single View (04/09/25 13:29) Hs Troponin I W Calculations (04/09/25 13:29) Hs Troponin I W Calculations (04/09/25 15:29) Potassium Cl 20meq/15ml Oral (Potassium (04/09/25 14:51) Normal Saline 1000ml (Sodium Chloride 10 (04/09/25 15:20) Stat Ekg (04/09/25 ) Morphine 4mg/Ml Inj. (Morphine Inj.) (04/09/25 15:25) Aspirin 325mg Tablet (Aspirin 325mg Tabl (04/09/25 15:25) Lorazepam Inj (Ativan Inj) (04/09/25 15:25) Lorazepam Inj (Ativan Inj) (04/09/25 16:25) Cta Chest Pe (04/09/25 16:26) Iohexol 350mg/Ml 100ml (Omnipaque 350mg/ (04/09/25 16:33) Normal Saline 1000ml (Sodium Chloride 10 (04/09/25 16:50) Metoprolol Tartrate Inj (Lopressor Iv) (04/09/25 17:05) Amiodarone Inj. (Cordarone Inj.) (04/09/25 17:15) Amiodarone Inj. (Cordarone Inj.) (04/09/25 17:45) Amiodarone 150mg/Dext, Iso-Os (Nexterone (04/09/25 17:50) Medications Received in ER Medications (Trade) Dose Ordered Sig/Ramona Route PRN Reason Start Time Stop Time Status Last Admin Dose Admin (Adrenalin inj) 0.5 mg ONCE STAT IM 04/09/25 13:26 04/09/25 13:33 DC 04/09/25 13:40 0.5 MG (S-2 nebule) 0.5 ml ONCE ONCE IH 04/09/25 13:30 04/09/25 13:33 DC 04/09/25 13:41 0.5 ML (Decadron 10mg/ ml inj) 10 mg ONCE STAT IV 04/09/25 13:26 04/09/25 13:33 DC 04/09/25 13:35 10 MG (Pepcid IV inj) 20 mg ONCE ONCE IV 04/09/25 13:30 04/09/25 13:31 DC 04/09/25 13:32 20 MG (Benadryl inj.) 50 mg ONCE ONCE IV 04/09/25 13:30 04/09/25 13:31 DC 04/09/25 13:32 50 MG (POTASSIUM Cl 20mEq/15mL oral solution) 40 meq ONCE STAT PO 04/09/25 14:51 04/09/25 14:52 DC 04/09/25 15:00 40 MEQ Sodium Chloride 1,000 ml @ 1,000 mls/hr ONCE ONCE IV 04/09/25 15:20 04/09/25 16:19 DC 04/09/25 15:27 1,000 MLS/HR (morphine inj.) 4 mg ONCE ONCE IV 04/09/25 15:25 04/09/25 15:27 DC 04/09/25 15:27 4 MG (aspirin 325mg tablet) 1 tab ONCE ONCE PO 04/09/25 15:25 04/09/25 15:27 DC 04/09/25 15:27 1 TAB (Ativan inj) 1 mg ONCE ONCE IV 04/09/25 15:25 04/09/25 15:28 DC 04/09/25 16:15 1 MG (Ativan inj) 1 mg ONCE ONCE IV 04/09/25 16:25 04/09/25 16:26 DC 04/09/25 16:28 1 MG Sodium Chloride 1,000 ml @ 1,000 mls/hr ONCE ONCE IV 04/09/25 16:50 04/09/25 17:49 DC 04/09/25 17:12 1,000 MLS/HR (Cordarone inj.) 150 mg ONCE ONCE IV 04/09/25 17:15 04/09/25 17:23 DC 04/09/25 17:29 150 MG (Cordarone inj.) 150 mg ONCE ONCE IV 04/09/25 17:45 04/09/25 17:53 DC 04/09/25 17:53 150 MG Vital Signs 04/09/25 04/09/25 04/09/25 04/09/25 13:26 13:30 13:35 13:40 Pulse 122 123 123 99 Resp 20 22 16 19 B/P (MAP) 158/78 172/96 (121) 157/78 (104) 165/113 (130) Pulse Ox 96 99 92 O2 Flow Rate 3.0 3.0 04/09/25 04/09/25 04/09/25 04/09/25 13:42 13:45 13:46 13:47 Pulse 100 103 Resp 20 17 22 B/P (MAP) 196/115 (142) Pulse Ox 96 100 97 O2 Delivery Nasal Cannula* O2 Flow Rate 4 3.0 3 FiO2 36 N/A 6/21/04/09/25 04/09/25 04/09/25 13:50 13:55 14:00 14:01 Pulse 108 111 99 106 Resp 11 12 11 20 B/P (MAP) 198/108 (138) 144/76 (98) 154/77 (102) Pulse Ox 100 100 100 100 O2 Delivery Nasal Cannula* O2 Flow Rate 3.0 3.0 3.0 2 FiO2 28 04/09/25 04/09/25 04/09/25 04/09/25 14:15 14:30 14:30 14:45 Temp 98.1 Pulse 100 101 101 104 Resp 15 19 19 20 B/P (MAP) 134/81 (98) 126/76 (93) 126/76 (93) 135/79 (97) Pulse Ox 98 98 98 100 O2 Flow Rate 3.0 3.0 3.0 04/09/25 04/09/25 04/09/25 04/09/25 14:45 15:00 15:15 15:18 Pulse 104 104 109 170 Resp 20 19 25 B/P (MAP) 135/79 (97) 133/76 (95) 150/89 (109) 158/94 (115) Pulse Ox 100 98 98 94 O2 Flow Rate 3.0 3.0 3.0 3.0 04/09/25 04/09/25 04/09/25 04/09/25 15:20 15:22 15:27 15:30 Pulse 144 132 120 Resp 27 22 20 18 B/P (MAP) 145/83 (103) Pulse Ox 96 99 100 O2 Flow Rate 3.0 3.0 3.0 04/09/25 04/09/25 04/09/25 04/09/25 15:45 15:48 16:00 16:05 Pulse 114 123 137 117 Resp 20 20 36 13 B/P (MAP) 144/94 (111) 144/90 (108) Pulse Ox 97 100 97 100 O2 Flow Rate 3.0 3.0 04/09/25 04/09/25 04/09/25 04/09/25 16:10 16:15 16:20 16:25 Pulse 117 131 162 144 Resp 12 11 27 15 B/P (MAP) 154/87 (109) Pulse Ox 100 98 100 99 O2 Flow Rate 3.0 3.0 3.0 04/09/25 04/09/25 04/09/25 621/25 16:30 17:00 17:15 17:30 Pulse 131 125 136 131 Resp 15 16 13 21 B/P (MAP) 133/87 (102) 132/78 (96) 132/87 (102) 126/74 (91) Pulse Ox 100 96 94 96 O2 Flow Rate 3.0 3.0 3.0 3.0 Laboratory Tests Test 04/09/25 13:34 04/09/25 15:39 White Blood Count 8.4 Red Blood Count 5.34 Hemoglobin 16.0 Hematocrit 45.9 H Mean Corpuscular Volume 86.0 Mean Corpuscular Hemoglobin 29.9 Mean Corpuscular Hemoglobin Concent 34.8 Red Cell Distribution Width 12.6 Platelet Count 338 Mean Platelet Volume 8.4 Neutrophils (%) (Auto) 58.7 Lymphocytes (%) (Auto) 29.0 Monocytes (%) (Auto) 8.1 Eosinophils (%) (Auto) 3.8 Basophils (%) (Auto) 0.4 Neutrophils # (Auto) 5.0 Lymphocytes # (Auto) 2.4 Monocytes # (Auto) 0.7 Eosinophils # (Auto) 0.3 Basophils # (Auto) 0.0 CBC Comment Sodium Level 139 Potassium Level 3.2 L Chloride Level 102 Carbon Dioxide Level 27.7 Anion Gap 9 Blood Urea Nitrogen 6 L Creatinine 0.99 H Estimated GFR/1.73 m2 66 BUN/Creatinine Ratio 6.1 L Glucose Level 107 H Calcium Level 8.9 Magnesium Level 2.0 Total Bilirubin 0.4 Aspartate Amino Transf (AST/SGOT) 28 Alanine Aminotransferase (ALT/SGPT) 38 Alkaline Phosphatase 113 Troponin I High Sensitivity < 4 L < 4 L Troponin I High Sens Percent Delta Troponin I Hi Sens Absolute Change Total Protein 8.5 H Albumin 4.6 Globulin 3.9 Albumin/Globulin Ratio 1.2 Chemistry Comments EKG/XRAY/CT/US/VASC/MRI EKG : Additional Comment EKG as interpreted by me indicating sinus tachycardia with a rate of 160 beats per minute, normal axis, no ischemia Repeat EKG at 16:15 indicating atrial fibrillation with rapid ventricular response with a rate of 157 beats per minute Chest X-Ray : Additional Comments EXAM: XR Chest, 1 View CLINICAL INDICATION: SOB TECHNIQUE: Frontal view of the chest. COMPARISON: DI CHEST,SINGLE VIEW on DOS: 3/30/25, DI CHEST,SINGLE VIEW on DOS: 11/30/23 FINDINGS: LUNGS AND PLEURAL SPACES: Unremarkable. No consolidation. No pneumothorax. HEART: Unremarkable. No cardiomegaly. MEDIASTINUM: Unremarkable. Normal mediastinal contour. BONES/JOINTS: Unremarkable. No acute fracture. OTHER FINDINGS: . IMPRESSION: No acute cardiopulmonary process. CT : Impression CTA Chest with intravenous contrast INDICATION: Chest pain/SOB- r/o PE COMPARISON: None TECHNIQUE: Multidetector spiral CTA of the chest was performed of the chest with intravenous contrast. PULMONARY ANGIOGRAPHY PROTOCOL was utilized using a bolus- tracking technique centered on the main pulmonary artery. Axial, coronal and sagittal multiplanar and MIP reformats were performed. Radiation Dose : 1. Chest: CTDI volume is 39 mGy. Dose-length product is 845 mGy*cm The dose indicators for CT are the volume Computed Tomography (CT) Dose Index (CTDIvol) and the Dose Length Product (DLP), and are measured in units of mGy and mGy-cm, respectively. These indicators are not patient dose, but values generated from the CT scanner acquisition factors. The report includes radiation exposure data for exposures received during this examination. Findings: Pulmonary artery: Lower neck: Normal thyroid. Lungs: No focal consolidation, pleural effusion or pneumothorax. Heart/Vascular Structures: Normal heart size. No pericardial effusion. Lymph Nodes: No adenopathy Pleura: No pleural effusion or significant pneumothorax. Musculoskeletal: No acute osseous abnormality. Soft tissues: Normal. Upper abdomen: Patient is status post cholecystectomy IMPRESSION: 1. No pulmonary embolism. 2. No acute thoracic finding. Medical Decision Making Differential Diagnosis 29-year-old female who initially presented with an anaphylactic reaction after a wasp sting. Patient initially was short of breath and complaining of tightness in her chest with a sensation of her throat closing. She was immediately medicated with 0.5 mg of IM epinephrine. She was extremely tachycardic at the time with a heart rate in the 160s. EKG indicated sinus tachycardia. She was also hypertensive. She was also given 10 mg of IV Decadron as well as 50 mg IV Benadryl and 20 mg of IV famotidine. After medication the patient's symptoms significantly improved. She was given racemic epinephrine nebulizer as well. Patient was markedly improved in her symptoms nearly resolved when she then started developing sharp chest pain and again became tachycardic. Given the chest pain she was given 4 mg of IV morphine which improved and nearly resolved her symptoms again. About 40-50 minutes later her symptoms again returned. At the time we attributed to potential anxiety/panic attack and she was given 2 mg of IV Ativan which again improved and nearly resolved her symptoms. However the patient would repeatedly develop the same symptoms every 20-30 minutes. A sudden pulmonary embolism was considered and a CT angiogram was ordered which was negative for PE. A repeated EKG indicated atrial fibrillation with RVR. The patient was then given 150 mg of IV amiodarone x2 doses which helped resolve and convert it her atrial fibrillation into normal sinus tachycardia. The patient now however still remains tachycardic. A further 5 mg of IV metoprolol was given. Given her ED course and continued tachycardia I suspect that the patient was extremely sensitive to the epinephrine and this is potentially what may have provoked this. Either case she will need to be admitted for further monitoring and potential treatment. Report called to admitting hospitalist team who accepted the patient. Departure Disposition: ADMITTED INPATIENT Admitted to Inpatient Unit: to hospitalist Admission Level of Care: PCU with Tele Impression: Primary Impression: Sinus tachycardia Additional Impressions: Atrial fibrillation with RVR Anaphylactic reaction Condition: Guarded Referrals: NO PRIMARY CARE PROVIDER (PCP) Critical Care Note Total Time (mins): 123 Critical Care Note The very real possibility of a deterioration of this patient's condition required the highest level of my preparedness for sudden, emergent intervention. I provided critical care services, which included medication orders, frequent reevaluations of the patient's condition and response to treatment, ordering and reviewing test results, and discussing the case with various consultants. Excludes time spent performing separately billable procedures. The critical care time associated with the care of the patient was. Signature Scribe Signature: 1 Attestation: 1 JACQUELINE MOSES MD Apr 09, 2025 13:31
--- NOTE | 2025-04-09 13:31 | ELECTROCARDIOGRAPH REPORT ---
[facility] Test Date: 2025-04-09 Test Time: 13:29:03 Pat Name: CATHY RODRIGUEZ Department: EMERGENCY ROOM Room: Gender: F Copy Center Associate: ANNY : 1995 Requested By: JACQUELINE MOSES Order Number: [id number] Reading MD: Measurements Intervals [place] Rate: 112 P: 21 [place]: 161 QRS: 15 QRSD: 94 T: 26 QT: 349 QTc: 477 Interpretive Statements Sinus tachycardia Borderline prolonged QT interval Please click the below link to view image of tracing.
[2025-04-09] MEDS: famotidine/PF 10 mg/ml inj IV ONE (13:32)
[2025-04-09] MEDS: diphenhydrAMINE 50 mg/ml inj IV ONE (13:32)
[2025-04-09] MEDS: dexamethasone sod phosphate 10mg/ml inj IV STA (13:35)
[2025-04-09] MEDS: epiNEPHrine 1 mg/ml inj IM STA (13:40)
[2025-04-09] MEDS: epiNEPHrine 1 mg/ml inj ONE (13:41)
[2025-04-09] MEDS: racepinephrine 11.25mg/0.5ml nebule IH ONE (13:41)
[2025-04-09 13:42] VITALS: PULSE 100; RESP 20; O2SAT 96
[2025-04-09 13:50] LABS: BASOPHILS % (AUTO) 0.4 % (0-1); EOSINOPHILS # (AUTO) 0.3 X10'3 (0-0.9); EOSINOPHILS % (AUTO) 3.8 % (0-6); HEMATOCRIT 45.9 % (35.0-45.0); LYMPHOCYTES # (AUTO) 2.4 X10'3 (1.1-4.8); MEAN CORPUSCULAR HEMOGLOBIN 29.9 PG (27.0-31.0); MEAN CORPUSCULAR HGB CONC 34.8 g/dL (33.0-36.5); MEAN PLATELET VOLUME 8.4 FL (7.4-10.4); MONOCYTES # (AUTO) 0.7 X10'3 (0-0.9); MONOCYTES % (AUTO) 8.1 % (2-12); NEUTROPHILS % (AUTO) 58.7 % (42-75); PLATELET COUNT 338 X10'3 (140-440); RED BLOOD COUNT 5.34 X10'6 (4.20-5.60); RED CELL DISTRIBUTION WIDTH 12.6 % (11.5-14.5); WHITE BLOOD COUNT 8.4 X10'3 (4.5-11.0)
[2025-04-09] MEDS ORDERED: SUMA50TA17 (13:58)
[2025-04-09 14:01] VITALS: PULSE 106; RESP 20; O2SAT 100
[2025-04-09 14:05] LABS: ALANINE AMINOTRANSFERASE 38 U/L (12-78); ALBUMIN 4.6 G/DL (3.4-5.0); ALBUMIN/GLOBULIN RATIO 1.2 (1.1-1.5); ALKALINE PHOSPHATASE 113 IU/L (46-116); ANION GAP 9 (8-16); ASPARTATE AMINO TRANSFERASE 28 U/L (10-37); BILIRUBIN,TOTAL 0.4 MG/DL (0.1-1.0); BLOOD UREA NITROGEN 6 MG/DL (7-18); BUN/CREATININE RATIO 6.1 (10.0-20.0); CALCIUM 8.9 MG/DL (8.5-10.1); CHLORIDE 102 MMOL/L (99-107); CREATININE 0.99 MG/DL (0.40-0.90); GLUCOSE 107 MG/DL (70-104); POTASSIUM 3.2 MMOL/L (3.5-5.1); SODIUM 139 MMOL/L (135-145); TOTAL CARBON DIOXIDE 27.7 MMOL/L (24-32); TOTAL PROTEIN 8.5 G/DL (6.4-8.2); eCRCL 72 ML/MIN; eGFR 66 ML/MIN
--- NOTE | 2025-04-09 14:26 | RADIOLOGY REPORT ---
EXAM: XR Chest, 1 View CLINICAL INDICATION: SOB TECHNIQUE: Frontal view of the chest. COMPARISON: DI CHEST,SINGLE VIEW on DOS: 01/16/25, DI CHEST,SINGLE VIEW on DOS: 11/30/23 FINDINGS: LUNGS AND PLEURAL SPACES: Unremarkable. No consolidation. No pneumothorax. HEART: Unremarkable. No cardiomegaly. MEDIASTINUM: Unremarkable. Normal mediastinal contour. BONES/JOINTS: Unremarkable. No acute fracture. OTHER FINDINGS: . IMPRESSION: No acute cardiopulmonary process.
[2025-04-09] MEDS ORDERED: potassium Cl 20 mEq SR tablet PO STA (14:45)
[2025-04-09] MEDS: POTASSIUM CHLORIDE 20 MEQ/15 ML oral solution PO STA (15:00)
--- NOTE | 2025-04-09 15:23 | ELECTROCARDIOGRAPH REPORT ---
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
[2025-04-09] MEDS: morphine 4 MG/ML inj SYRINge IV ONE (15:27)
[2025-04-09] MEDS: normal saline 1000ml 1,000 ML IV ONE ×2 (15:27→17:12)
[2025-04-09] MEDS: aspirin 325mg tablet PO ONE (15:27)
[2025-04-09] MEDS: LORazepam 2 mg/ml vial IV ONE ×2 (16:15→16:28)
[2025-04-09] MEDS ORDERED: iohexol 350MG/ML 100ml bottle IV ONE (16:33)
--- NOTE | 2025-04-09 17:06 | RADIOLOGY REPORT ---
CTA Chest with intravenous contrast INDICATION: Chest pain/SOB- r/o PE COMPARISON: None TECHNIQUE: Multidetector spiral CTA of the chest was performed of the chest with intravenous contrast . PULMONARY ANGIOGRAPHY PROTOCOL was utilized using a bolus-tracking technique centered on the main p ulmonary artery. Axial, coronal and sagittal multiplanar and MIP reformats were performed. Radiation Dose : 1. Chest: CTDI volume is 39 mGy. Dose-length product is 845 mGy*cm The dose indicators for CT are the volume Computed Tomography (CT) Dose Index (CTDIvol) and the Dose Length Product (DLP), and are measured in units of mGy and mGy-cm, respectively. These indicators are not patient dose, but values generated from the CT scanner acquisition factors. The report includes radiation exposure data for exposures received during this examination. Findings: Pulmonary artery: Lower neck: Normal thyroid. Lungs: No focal consolidation, pleural effusion or pneumothorax. Heart/Vascular Structures: Normal heart size. No pericardial effusion. Lymph Nodes: No adenopathy Pleura: No pleural effusion or significant pneumothorax. Musculoskeletal: No acute osseous abnormality. Soft tissues: Normal. Upper abdomen: Patient is status post cholecystectomy IMPRESSION: 1. No pulmonary embolism. 2. No acute thoracic finding.
[2025-04-09] MEDS: amiodarone 50MG/ML inj IV ONE ×2 (17:29→17:53)
[2025-04-09] MEDS ORDERED: potassium Cl 20 mEq SR tablet PO PRN ×2 (17:55)
[2025-04-09] MEDS ORDERED: potassium Cl 40MEQ/1/2NS 520ml 520 ML IV PRN (17:55)
[2025-04-09] MEDS ORDERED: HYDROcodone/acetaminophen 5mg/325mg tablet PO PRN (17:55)
[2025-04-09] MEDS ORDERED: HYDROcodone/acetaminophen 10/325mg tab PO PRN (17:55)
[2025-04-09] MEDS ORDERED: magnesium sulf-water 2g/50mL 50 ML IV PRN (17:55)
[2025-04-09] MEDS ORDERED: mag hydrox/Alum hydrox/simeth 30ml oral suspension PO PRN (17:55)
[2025-04-09] MEDS ORDERED: acetaminophen 325mg tablet PO PRN ×2 (17:55)
[2025-04-09] MEDS ORDERED: magnesium sulf-water 4G/100mL 100 ML IV PRN (17:55)
[2025-04-09] MEDS ORDERED: magnesium Cl slow-release 64mg tablet PO PRN (17:55)
--- NOTE | 2025-04-09 18:09 | ELECTROCARDIOGRAPH REPORT ---
[facility] Test Date: 2025-04-09 Test Time: 16:15:38 Pat Name: CATHY RODRIGUEZ Department: EMERGENCY ROOM Room: ED 4 1 Gender: F Label Operator: arnie : 1995 Requested By: DEPARTMENT EMERGENCY Order Number: [id number] Reading MD: Measurements Intervals [place] Rate: 157 P: -65 SD: 107 QRS: 41 QRSD: 93 T: 40 QT: 338 QTc: 547 Interpretive Statements Sinus or ectopic atrial tachycardia Prolonged QT interval Artifact in lead(s) I,II,III,aVR,aVL,aVF,V1 Please click the below link to view image of tracing.
[2025-04-09] MEDS: amiodarone 150mg/dext, iso-os 100 ML IV ONE (18:11)
--- NOTE | 2025-04-09 18:25 | HISTORY AND PHYSICAL-Residence ---
History & Physical Providers to CC Resident Creating Document: NAVA RILEY RES ~ History of Present Illness Primary Medical Doctor: veda agudelo Reason for Admit\Complaint: Sinus tachycardia, post anaphylaxis secondary to bee sting History of Present Illness 29-year-old female with history of POTS, PCOS, migraines presented to the ED after being stung by a bee/wasp. She felt like she could not breathe and her airway was closing. Associated with chest pain, palpitations, throat swelling and shortness of breath. Rates the pain in the chest 10/10, associated with left arm numbness, neck and back pain. Does not drink or smoke no recreational drugs. No other complaints. Discussed advanced care directives and she wishes to be a full code. ED course: Was given epinephrine, Decadron, morphine Ativan and amiodarone. Initially there was concern that patient was also in AFib and hence the amio was administered. Currently she is in sinus tach with heart rate 127. She complains of chest pain but troponins are negative no ST changes noted on EKG. Labs look unremarkable except hypokalemia and mild MALORIE. Allergies: Uncoded Allergies: BEE/WASP (Allergy, Severe, 04/09/25) Home Medications Home Medications Active Fioricet Tab (Butalb/Acetaminophen/Caffeine) 50 Mg-325 Mg-40 Mg Tablet 1 Tab PO Q6H PRN Ondansetron Odt (Ondansetron HCl) 8 Mg Tab.rapdis 1 Tab PO Q8H Metoprolol Tartrate* (Metoprolol Tartrate) 50 Mg Tablet 1 Tab PO TID 30 Days Reported Sumatriptan Succinate 50 Mg Tablet Past Medical History Past Medical History Migraine PCOS Pots Past Surgical History Surgical History Comment Cholecystectomy Past Social History Alcohol Use: None Drug Use: None Lives with: Mother Lives In: Home 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 ROS ROS Reviewed in full. All negative except for pertinent positive HPI. Exam Vitals: Vital Signs Date Time Temp Pulse Resp B/P (MAP) Pulse Ox O2 Delivery O2 Flow Rate FiO2 04/09/25 17:30 131 21 126/74 (91) 96 3.0 04/09/25 14:15 98.1 04/09/25 14:01 Nasal Cannula* 28 General: General: Awake and Alert, mild acute distress on 3 L oxygen nasal cannula. HEENT: Conjunctiva pink, Sclera clear, Mucus Membranes moist. Neck: Supple without masses and tenderness. Resp: Unlabored. Rhonchi on the right side of the lung. Heart: Regular rhythm, normal S1 and S2, no rub, murmur or gallop. Abdomen: Soft and non tender no organomegaly. Normal bowel sounds x4 quadrant normoactive. No guarding or rigidity. Extremities: Normal ROM, no swelling, nontender. No cyanosis,clubbing or edema. TRUCK GUARD: No gross motor or sensory abnormalities. Skin: Warm and Dry. Diagnostic Data Last Recorded Lab Results: 04/09/25 1334 04/09/25 1334 Advance Care Planning Advanced Care plannin - 30 Minutes Additional Plan 29-year-old female with history of POTS, PCOS, migraines presented to the ED after being stung by a bee/wasp. Anaphylaxis secondary to bee/wasp sting Sinus tach Chest pain Was given epinephrine IM and IH in the ED, also received Decadron, Ativan, amiodarone There was also a concern that she went into AFib at hence the amiodarone was administered, currently she is in sinus with heart rate 127 Concern for Sinus tach secondary to administration of epinephrine, she will need to be monitored on telemetry overnight for any arrhythmias Breathing treatments p.r.n. IV fluids NS at 75 mL/hour Follow up with echo IV metoprolol push x1 Continue home metoprolol tartrate 50 p.o. t.i.d. She is also complaining of chest pain, troponins are negative and no ST changes noted. Repeat EKG in a.m. and troponin x1 in the a.m. History of migraines History of POTS History of PCOS Awaiting med rec Code Status: Full code DVT prophylaxis: None patient is ambulatory Analgesia/sedation: None Line/tube: PIV GI prophylaxis: None Nutrition: Regular diet Prognosis: Guarded Disposition: Continue medical management. Nava Riley MD. IM Resident PGY-2 Date of Service: Apr 09, 2025 Billing Provider: RTUDY CHRISTINA MD, ELIZABETH, RES Apr 09, 2025 18:25
[2025-04-09] MEDS: metoprolol tartrate 1mg/ml inj IV ONE ×2 (18:35→19:04)
[2025-04-09] MEDS ORDERED: ipratropium/albuterol 3ml nebule NEB PRN (18:35)
[2025-04-09] MEDS ORDERED: albuterol 2.5 MG/3 ML nebule NEB PRN (18:35)
[2025-04-09 18:37] LABS: HEMOGLOBIN A1C 5.1 % (4.5-6.2)
[2025-04-09] MEDS: K and/or MAG REPLACEMENT MC SCH (20:00)
[2025-04-09] MEDS: normal saline 1000ml 1,000 ML IV SCH (21:11)
[2025-04-09] MEDS: metoprolol tartrate 50mg tablet PO SCH (21:12)
[2025-04-09] MEDS: dexamethasone sod phosphate 10mg/ml inj IV SCH (23:52)
[2025-04-09] MEDS: morphine 2 MG/ML inj. syringe IV PRN (23:57)
[2025-04-10] VITALS (7 sets, daily range): BP systolic 118–147; BP diastolic 75–99; PULSE 70–97; RESP 10–20; TEMP 97.1–97.8; O2SAT 96–99
[2025-04-10] MEDS ORDERED: LAMO100T65 PO (01:59)
[2025-04-10] MEDS ORDERED: TIRZ5PEN3 SUBCUT (01:59)
[2025-04-10] MEDS: ondansetron/PF 4mg/2ml inj IV PRN (02:09)
[2025-04-10] MEDS: diphenhydrAMINE 50 mg/ml inj IV PRN (02:26)
[2025-04-10 03:01] LABS: BILIRUBIN,URINE NEGATIVE (Neg); CLARITY,URINE CLEAR (Clear); COLOR,URINE YELLOW (Yellow); GLUCOSE, URINE NEGATIVE (Neg); KETONES,URINE 40 mg/dl (Neg); LEUKOCYTE ESTERASE ,URINE NEGATIVE (Neg); NITRITES, URINE NEGATIVE (Neg); OCCULT BLOOD,URINE NEGATIVE (Neg); PH,URINE 6.5 (4.8-8.0); PROTEIN,URINE NEGATIVE (Neg); URINE HCG NEGATIVE (NEG); UROBILINOGEN,URINE 0.2 E.U/dL (0.2-1.0)
[2025-04-10 03:02] LABS: UA COLLECTION TYPE CLN CATCH MIDSTREAM
[2025-04-10 06:29] LABS: BASOPHILS % (AUTO) 0.2 % (0-1); EOSINOPHILS % (AUTO) 0 % (0-6); HEMATOCRIT 42.3 % (35.0-45.0); HEMOGLOBIN 14.3 g/dl (12.0-16.0); LYMPHOCYTES # (AUTO) 0.8 X10'3 (1.1-4.8); MEAN CORPUSCULAR HEMOGLOBIN 28.9 PG (27.0-31.0); MEAN CORPUSCULAR HGB CONC 33.8 g/dL (33.0-36.5); MEAN CORPUSCULAR VOLUME 85.7 FL (78-98); MEAN PLATELET VOLUME 8.4 FL (7.4-10.4); MONOCYTES # (AUTO) 0.1 X10'3 (0-0.9); MONOCYTES % (AUTO) 0.6 % (2-12); NEUTROPHILS # (AUTO) 10.7 X10'3 (1.8-7.7); NEUTROPHILS % (AUTO) 92.2 % (42-75); PLATELET COUNT 246 X10'3 (140-440); RED BLOOD COUNT 4.93 X10'6 (4.20-5.60); RED CELL DISTRIBUTION WIDTH 12.6 % (11.5-14.5); WHITE BLOOD COUNT 11.6 X10'3 (4.5-11.0)
[2025-04-10 07:38] LABS: ALBUMIN 3.8 G/DL (3.4-5.0); ANION GAP 10 (8-16); BLOOD UREA NITROGEN 4 MG/DL (7-18); CALCIUM 8.3 MG/DL (8.5-10.1); CHLORIDE 105 MMOL/L (99-107); CREATININE 0.67 MG/DL (0.40-0.90); GLUCOSE 128 MG/DL (70-104); PHOSPHORUS 2.2 MG/DL (2.3-4.5); POTASSIUM 3.9 MMOL/L (3.5-5.1); SODIUM 136 MMOL/L (135-145); TOTAL CARBON DIOXIDE 21.3 MMOL/L (24-32); eCRCL 106 ML/MIN; eGFR > 90 ML/MIN
[2025-04-10] MEDS: nitroGLYCERIN 0.4mg SUBLingual tab SL PRN (09:15)
--- NOTE | 2025-04-10 09:53 | ELECTROCARDIOGRAPH REPORT ---
[facility] Test Date: 2025-04-10 Test Time: 09:51:22 Pat Name: CATHY RODRIGUEZ Department: [facility] Room: [place] [address] A Gender: F [employer] Shift Lead: : 1995 Requested By: DES MCDERMOTT Order Number: [id number] Reading MD: Dr. DANII Caballero Measurements Intervals [place] Rate: 90 P: 2 [place]: 195 QRS: 15 QRSD: 94 T: -3 QT: 381 QTc: 467 Interpretive Statements Sinus rhythm Electronically Signed On 04-11-2025 9:10:[address] DANII Caballero Please click the below link to view image of tracing.
[2025-04-10] MEDS: morphine 2 MG/ML inj. syringe IV ONE (10:56)
[2025-04-10] MEDS: ketorolac trometh 15mg/ml vial 15 MG/ML ML IV ONE (11:00)
[2025-04-10] MEDS ORDERED: DEXA6TAB PO (13:18)
[2025-04-10] MEDS ORDERED: IBUP-1985 PO (13:29)
[2025-04-10] MEDS ORDERED: EPIN0.153 IM (14:16)
--- NOTE | 2025-04-10 16:06 | DISCHARGE SUMMARY-Residence ---
Discharge Summary Providers to CC Resident Creating Document: MAUREEN MCDERMOTTDES, RES ~ Discharge Summary Admission Diagnosis: SINUS TACH, POSSIBLE AFIB, ANAPHYLAXIS Hospital Course DATE OF ADMISSION: 04/09/2025 DATE OF DISCHARGE: 04/10/2025 Discharge Diagnosis\Comment: Anaphylaxis secondary to bee/wasp sting Sinus tachycardia Chest pain Operations\Procedures: None Consultants: None Complications: None Condition on DC: Stable New Medications: Dexamethasone (Dexamethasone) 6 Mg Tablet 1 TAB PO DAILY for 4 Days, #4 TAB 0 Refills Epinephrine (Epipen Jr) 0.15 Mg/0.3 Ml Auto.injct 1 SYR IM ONCE PRN for allergies for 1 Day, #0.6 ML 0 Refills Ibuprofen (Ibuprofen) 600 Mg Tablet 1 TAB PO Q8H for pain for 3 Days, #9 TAB 0 Refills with food Continued Medications: Butalb/Acetaminophen/Caffeine (Fioricet Tab) 50 Mg-325 Mg-40 Mg Tablet 1 TAB PO Q6H PRN for headache, #20 TAB 0 Refills Lamotrigine (Lamotrigine) 100 Mg Tab.er.24 1 TAB PO DAILY for 30 Days, #30 TAB 0 Refills Metoprolol Tartrate* (Metoprolol Tartrate*) 50 Mg Tablet 1 TAB PO TID for 30 Days, #30 TAB Ondansetron 8mg ODT (Ondansetron Odt) 8 Mg Tab.rapdis 1 TAB PO Q8H for nausea, #6 TAB Sumatriptan Succinate (Sumatriptan Succinate) 50 Mg Tablet Tirzepatide (Zepbound) 5 Mg/0.5 Ml Pen.injctr 5 MG SUBCUT Discharge Summary: HPI: 29-year-old female with history of POTS, PCOS, migraines presented to the ED after being stung by a bee/wasp. She felt like she could not breathe and her airway was closing. Associated with chest pain, palpitations, throat swelling and shortness of breath. Rates the pain in the chest 10/10, associated with left arm numbness, neck and back pain. Does not drink or smoke no recreational drugs. No other complaints. Discussed advanced care directives and she wishes to be a full code. ED course: Was given epinephrine, Decadron, morphine Ativan and amiodarone. Initially there was concern that patient was also in AFib and hence the amio was administered. Currently she is in sinus tach with heart rate 127. She complain s of chest pain but troponins are negative no ST changes noted on EKG. Labs look unremarkable except hypokalemia and mild MALORIE. Hospital course: 29-year-old female patient came to the hospital after being stung by a bee/was. The patient initially had difficulty for breathing feeling that her airway was closing. The patient was started on breathing treatments, IV fluids, Decadron, Ativan, amiodarone, her sinus tachycardia resolved, upon the next day the patient states that her shortness of breaths improved. Due to her sinus tachycardia echocardiogram was obtained showing: LVEF of 65-70%, no aortic valve, mitral valve, tricuspid valve, or pulmonic valve insufficiency. On 04/10/2025 the patient reported chest pain, the patient was evaluated at the bedside, echocardiogram was obtained showing sinus rhythm with normal heart rate, normal axis deviation, no acute findings for ischemia. Troponin levels within reference range. On physical exam tenderness is evidenced around the area were she was stung. One dose of ketorolac was given, the patient states that her symptoms completely resolved after this medication. The patient remained hemodynamically stable. The patient is eager to be discharged home. The patient will be discharged. Discharge course: The patient remained hemodynamically stable. The patient will be discharged with the following instructions: Call 911 or come back to the emergency department if shortness of breath, fever, chest pain, palpitations is evidenced. Take dexamethasone 6 mg daily for 4 days. Take Ibuprofen 600 mg every 8 hours for 3 days. Follow up with your primary care physician within 2 weeks. Physical exam: General: Well alert, well oriented, not confused, not agitated, not in acute distress, well cooperated during the physical. HEENT: Conjunctive are pink, sclerae clear, no icterus, pupil is equal in both sides, reactive to light, no ear discharge, no pharyngeal erythema or an edema. Neck: Supple, no JVD, no lymphadenopathy and thyromegaly. Chest: Equal air entry on both lungs, no additional sounds no rhonchi no wheezing at the moment, presence of stung entry in the left side of the chest, reproducible pain with palpation around the area which the patient states is the same pain she has been experiencing. Improvement of redness and swelling. Cardiovascular: S1-S2 regular sinus rhythm and, regular rate, no gallops, no rubs, no murmurs Abdomen: No visible peristalsis, Bowel sounds present on auscultation, soft, nontender, no guarding, no rigidity Extremities: No obvious deformities, no pitting edema bilaterally, capillary refill intact, peripheral pulsations are intact on both sides Central Nervous System: No focal neurological deficits, no motor or sensory weakness in all 4 extremities, could move all 4 extremities, 2+ deep tendon reflexes, negative Babinski. Musculoskeletal: No joint swelling, deformities, inflammations, and no scoliosis and back tenderness Vital Signs Date Time Temp Pulse Resp B/P (MAP) Pulse Ox O2 Delivery O2 Flow Rate FiO2 04/10/25 12:57 88 04/10/25 11:10 18 98 Room Air* 0 21 04/10/25 11:00 97.1 118/75 (89) Laboratory Tests Test 04/09/25 13:34 04/09/25 15:39 04/10/25 02:55 04/10/25 06:13 White Blood Count 8.4 X10'3 11.6 X10'3 Red Blood Count 5.34 X10'6 4.93 X10'6 Hemoglobin 16.0 g/dl 14.3 g/dl Hematocrit 45.9 % 42.3 % Mean Corpuscular Volume 86.0 FL 85.7 FL Mean Corpuscular Hemoglobin 29.9 PG 28.9 PG Mean Corpuscular Hemoglobin Concent 34.8 g/dL 33.8 g/dL Red Cell Distribution Width 12.6 % 12.6 % Platelet Count 338 X10'3 246 X10'3 Mean Platelet Volume 8.4 FL 8.4 FL Neutrophils (%) (Auto) 58.7 % 92.2 % Lymphocytes (%) (Auto) 29.0 % 7.0 % Monocytes (%) (Auto) 8.1 % 0.6 % Eosinophils (%) (Auto) 3.8 % 0 % Basophils (%) (Auto) 0.4 % 0.2 % Neutrophils # (Auto) 5.0 X10'3 10.7 X10'3 Lymphocytes # (Auto) 2.4 X10'3 0.8 X10'3 Monocytes # (Auto) 0.7 X10'3 0.1 X10'3 Eosinophils # (Auto) 0.3 X10'3 0.0 X10'3 Basophils # (Auto) 0.0 X10'3 0.0 X10'3 CBC Comment Sodium Level 139 MMOL/L 136 MMOL/L Potassium Level 3.2 MMOL/L 3.9 MMOL/L Chloride Level 102 MMOL/L 105 MMOL/L Carbon Dioxide Level 27.7 MMOL/L 21.3 MMOL/L Anion Gap 9 10 Blood Urea Nitrogen 6 MG/DL 4 MG/DL Creatinine 0.99 MG/DL 0.67 MG/DL Estimated GFR/1.73 m2 66 ML/MIN > 90 ML/MIN BUN/Creatinine Ratio 6.1 6.0 Glucose Level 107 MG/DL 128 MG/DL Hemoglobin A1c 5.1 % Calcium Level 8.9 MG/DL 8.3 MG/DL Magnesium Level 2.0 MG/DL 2.0 MG/DL Total Bilirubin 0.4 MG/DL Aspartate Amino Transf (AST/SGOT) 28 U/L Alanine Aminotransferase (ALT/SGPT) 38 U/L Alkaline Phosphatase 113 IU/L Troponin I High Sensitivity < 4 ng/L < 4 ng/L 4 ng/L Troponin I High Sens Percent Delta % % Troponin I Hi Sens Absolute Change ng/L ng/L Total Protein 8.5 G/DL Albumin 4.6 G/DL 3.8 G/DL Globulin 3.9 G/DL Albumin/Globulin Ratio 1.2 Chemistry Comments Urine Specimen Description Cln catch midstream Urine Color Yellow Urine Clarity Clear Urine pH 6.5 Urine Specific [place] <=1.005 Urine Protein Negative mg/dl Urine Glucose (UA) Negative mg/dl Urine Ketones 40 mg/dl Urine Occult Blood Negative Urine Nitrite Negative Urine Bilirubin Negative Urine Urobilinogen 0.2 E.U/dL Urine Leukocyte Esterase Negative Urine Culture Indicated Not ind Volume Urine Centrifuged 10 ml Urine HCG, Qualitative Negative Urine Comment Phosphorus Level 2.2 MG/DL *Problems/Diagnosis: (1) Anaphylaxis Status: Acute (2) Sinus tachycardia Status: Acute Total Time Spent on D/C: > 30 Minutes Date of Service: Apr 10, 2025 Billing Provider: TRUDY CHRISTINA MD, FRANCO LUIS, RES Apr 10, 2025 16:05
--- NOTE | 2025-04-10 17:24 | CARDIOLOGY REPORT ---
APPROVED REPORT EXAM: Comprehensive 2D, Doppler, and color-flow Echocardiogram. 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 123.3 cm/s AoV VTI 24.6 cm AO Peak GR. 6.1 mmHg AO Mean GR. 3 mmHg LVOT VTI 19.63 cm LVOT Peak Kaleb. 105.4 cm/s MANDA(VTI)/BSA 2.38 cm2/m2 MANDA (VTI) 2.38 cm2 Mitral Valve MV E Velocity 137.7 cm/s MV Peak Gr. 7 mmHg MV PHT 48 ms MVA (PHT) 4.58 cm2 MV [id number] cm/s LEFT VENTRICLE Normal LV size and wall thickness. Overall systolic function is normal. LVEF is 65-70%. RIGHT VENTRICLE RV is mildly dilated in size with normal function. ATRIA The left atrium size is normal. AORTIC VALVE Trileaflet AV appears normal without stenosis. No insufficiency. MITRAL VALVE Mild MV annular calcification without stenosis. Trace regurgitation. TRICUSPID VALVE TV appears structurally normal with trace regurgitation. PULMONIC VALVE Normal PV without stenosis, physiologic insufficiency. GREAT VESSELS The aortic root is normal in size. IVC is not well visualized. PERICARDIUM Normal pericardium. No effusion. Other Information Study Quality: Adequate but no subcostal view due to body habitus. Conclusion Normal LV size and wall thickness. Overall systolic function is normal. LVEF is 65-70%. RV is mildly dilated in size with normal function. The left atrium size is normal. Trileaflet AV appears normal without stenosis. No insufficiency. Mild MV annular calcification without stenosis. Trace regurgitation. TV appears structurally normal with trace regurgitation. Normal pericardium. No effusion.
== END 2025-04-10 15:05 | disposition home or self-care (01) | DRG 816 ==
LOC: ER 13:13 → ED HOLD 17:59 → PCU 3S 04-10 01:00
PROVIDERS: ADMIT Internal Medicine; ATTEND Internal Medicine
PROC: B32T1ZZ Computerized Tomography (CT Scan) of Left Pulmonary Artery using Low Osmolar Contrast (ICD-10-PCS; principal; 2025-04-09)
PROC: B3201ZZ Computerized Tomography (CT Scan) of Thoracic Aorta using Low Osmolar Contrast (ICD-10-PCS; 2025-04-09)
PROC: B32S1ZZ Computerized Tomography (CT Scan) of Right Pulmonary Artery using Low Osmolar Contrast (ICD-10-PCS; 2025-04-09)
DX: T63.461A Toxic effect of venom of wasps, accidental (unintentional), initial encounter (principal); N17.9 Acute kidney failure, unspecified; T78.2XXA Anaphylactic shock, unspecified, initial encounter; G43.909 Migraine, unspecified, not intractable, without status migrainosus; I48.91 Unspecified atrial fibrillation; E87.6 Hypokalemia; R07.9 Chest pain, unspecified; R00.0 Tachycardia, unspecified; Y92.89 Other specified places as the place of occurrence of the external cause; Z90.49 Acquired absence of other specified parts of digestive tract
CPT/HCPCS: 36415; 71045; 71275; 80048; 80053; 81003; 81025; 83036; 83735; 84100; 84484; 85025; 87081; 93005; 93306; 94640; 94760; 99291; 99292; G0378; J0171; J0282; J1100; J1200; J1885; J2060; J2270; J2405; J2919; J3490; J7030; Q9967

== ENCOUNTER 2025-04-14 16:55 | Inpatient (IN) | payer MEDICAID ==
[~2025-04-14] VITALS: Ht 162.6 cm; Wt 90.9 kg
[2025-04-14 01:15] VITALS: BP 138/86; PULSE 96; RESP 15; TEMP 98.1; O2SAT 96
[~2025-04-14 16:55] MED LIST changes: -CYCL-1 PO; +DEXA6TAB PO; +EPIN0.153 IM; -GUAI400T92 PO; -IBUP-1986 PO; +LAMO100T65 PO; -METF500T PO; -ONDA-243 PO; -ONDA8TAB9 PO; -PROC-8 PEG; -SPIR25TA5 PO; +SUMA50TA17; +TIRZ5PEN3 SUBCUT; -[UNRECOGNIZED DRUG - CODE] PO
--- NOTE | 2025-04-14 17:09 | Physician Documentation ---
History of Present Illness ~ Stated Complaint: CHEST PAIN Time Seen by MD: 17:12 Primary Medical Doctor: veda agudelo Source: patient, family Mode of Arrival: POV Exam Limitations: no limitations HPI 29-year-old female recently discharged from hospital after anaphylactic reaction to bee sting. Patient was admitted overnight and discharged and she has seen her primary care provider. Patient states that since discharge she just has not felt right with rapid heart rate anxiousness and shortness of breath. Her primary care provider encouraged her to come back to the emergency department. Patient has history of PCOS and POTS. She has been taken 50 mg metoprolol 3 times a day and she has taken her medications today. Upon arrival to the emergency room she has tachycardia about the rate of 150 beats per minute. She has episodes of breath-holding as well. That is a lot of anxiety compounding the situation. Medication Reconciliation Allergies: Uncoded Allergies: BEE/WASP (Allergy, Severe, 04/09/25) Scheduled Dexamethasone (Dexamethasone), 1 TAB PO DAILY Escitalopram Oxalate (Lexapro), 1 TAB PO DAILY, (Reported) Ibuprofen (Ibuprofen), 1 TAB PO Q8H Lamotrigine (Lamotrigine), 1 TAB PO DAILY, (Reported) Methylprednisolone (Medrol Dosepak), 0 PO UD Sanderson-3 Fatty Acids/Fish Oil (Sanderson 3 1,000 mg Softgel), 1 CAP PO Q12H Ondansetron 8mg ODT (Ondansetron Odt), 1 TAB PO Q8H Pantoprazole Sodium (Pantoprazole Sodium), 40 MG PO DAILY Sotalol Hcl* (Betapace*), 80 MG PO Q12H Sumatriptan Succinate (Imitrex), 1 TAB PO DAILY, (Reported) Scheduled PRN Butalb/Acetaminophen/Caffeine (Fioricet Tab), 1 TAB PO Q6H PRN for headache Epinephrine (Epipen Jr), 1 SYR IM ONCE PRN for allergies Miscellaneous Medications Sumatriptan Succinate (Sumatriptan Succinate), (Reported) Tirzepatide (Zepbound), 5 MG SUBCUT, (Reported) Discontinued Medications Metoprolol Tartrate* (Metoprolol Tartrate*), 1 TAB PO TID Sumatriptan Succinate (Imitrex), 1 TAB PO DAILY, (Reported) Discontinued Reason: patient no longer taking Past Medical History Past Medical History: Headache, Migraine, *CARDIOVASCULAR*, *RENAL/* Past Surgical History: cholecystectomy, other Alcohol Use: None Drug Use: none Lives with: Mother Lives In: Home 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 Cardiovascular: Reports: see HPI Physical Exam Physical Exam Reviewed vital signs and blood pressure is stable and heart rate is above 150. Const: Patient is in panic mode. Head: Atraumatic Eyes: Normal Conjunctiva ENT: Normal External Ears, Nose and Mouth. Moist mucous membranes Airway is patent and no mucus so edema. Neck: Full range of motion. No meningismus, no stridor. Resp: Clear to auscultation bilaterally. Normal work of breathing Cardio: Regular rate and rhythm, no murmurs. Skin well perfused Abd: Soft, non-tender, non-distended. Normal bowel sounds. No rebound or guarding Skin: No petechiae or rashes. Warm and dry Back: No midline or flank tenderness Ext: No cyanosis, or edema Neuro: Awake and alert Psych: Normal Mood and Affect General Appearance: alert, WD/WN, mild distress Respiratory: lungs clear, normal breath sounds, no respiratory distress Chest: no accessory muscle use Cardiovascular: tachycardia Progress Results/Orders Results/Orders Orders - SAM HENDERSON MD Electrocardiogram (04/14/25 17:13) Chest,Single View (04/14/25 17:13) Saline Lock (04/14/25 17:13) Monitor (04/14/25 17:13) Page Hospitalist (04/14/25 18:20) Completed Orders - SAM HENDERSON MD Cbc/Diff (04/14/25 17:13) MG (04/14/25 17:13) Electrocardiogram (04/14/25 17:13) Chest,Single View (04/14/25 17:13) BMP (04/14/25 17:13) Hs Troponin I W Calculations (04/14/25 17:13) Normal Saline 1000ml (Sodium Chloride 10 (04/14/25 17:15) Adenosine Inj. (Adenocard Inj.) (04/14/25 17:20) Adenosine Inj. (Adenocard Inj.) (04/14/25 17:20) Adenosine Inj. (Adenocard Inj.) (04/14/25 17:20) Lorazepam Inj (Ativan Inj) (04/14/25 17:20) Laboratory Tests Test 04/14/25 17:28 White Blood Count 12.5 H Red Blood Count 6.03 H Hemoglobin 17.4 H Hematocrit 51.7 H Mean Corpuscular Volume 85.8 Mean Corpuscular Hemoglobin 28.9 Mean Corpuscular Hemoglobin Concent 33.7 Red Cell Distribution Width 12.8 Platelet Count 306 Mean Platelet Volume 8.2 Neutrophils (%) (Auto) 68.4 Lymphocytes (%) (Auto) 22.8 Monocytes (%) (Auto) 5.3 Eosinophils (%) (Auto) 3.2 Basophils (%) (Auto) 0.3 Neutrophils # (Auto) 8.6 H Lymphocytes # (Auto) 2.9 Monocytes # (Auto) 0.7 Eosinophils # (Auto) 0.4 Basophils # (Auto) 0.0 CBC Comment Prothrombin Time 10.1 INR International Normalized Ratio 1.0 Activated Partial Thromboplast Time 26 Coagulation Comments Sodium Level 138 Potassium Level 4.0 Chloride Level 100 Carbon Dioxide Level 27.2 Anion Gap 11 Blood Urea Nitrogen 9 Creatinine 0.87 Estimated GFR/1.73 m2 76 BUN/Creatinine Ratio 10.3 Glucose Level 117 H Calcium Level 9.1 Magnesium Level 2.0 Troponin I High Sensitivity < 4 L Troponin I High Sens Percent Delta Troponin I Hi Sens Absolute Change Albumin 4.2 Procalcitonin < 0.05 Chemistry Comments Medical Decision Making Findings The patient is in severe tachycardia it could be supraventricular tachycardia. As we were preparing to get the IV access and hooking up to the monitor I applied carotid massage and it did slow down and monitor showing sinus tachycardia. At this point of time the patient's tachycardia broke. I gave her 0.5 mg of Ativan intravenously and she felt much better. Later I reviewed the ER note on April 09, 2025 and found out that lorazepam is the best medication for her. April 09 the patient has CTA of the lungs and there was no evidence of PE. She was put on beta janina. At that time they were not quite sure whether she has atrial fibrillation or not. My observation is there is no evidence of atrial fibrillation and probably it could be SVT responding to carotid massage. Labs reviewed and the patient has hemoconcentration. Otherwise lab results are unremarkable. IV fluids we will be given and like to keep her in the hospital for overnight observation. CRITICAL CARE TIME: [40 ] minutes Treatments/Evaluations: Close monitoring and treatment of unstable vital signs, cardiorespiratory, and neurologic status, while maintaining tight balance of fluid, respiratory, and cardiac interventions. This time includes discussing the case with the patient and the patients family. This time does not include all procedures stated elsewhere in this record. This time also includes reviewing ol d records, labs and radiological studies. This time includes examining and re- examining the patient. Additionally, this time also includes arranging care with admitting and consulting physicians. DISCLAIMER Inadvertent spelling and grammatical errors,inadvertent occupational health rn errors,syntax errors, grammatical errors, and spelling errors are likely due to EMR/dictation software use and do not reflect on the overall quality of patient care. Note that the electronic time recorded on this note does not necessarily reflect the actual time of the patient encounter. Departure Disposition: 09 ADMITTED INPATIENT Impression: Primary Impression: Supraventricular tachycardia Referrals: NO PRIMARY CARE PROVIDER (PCP) Prescriptions Pantoprazole Sodium (Pantoprazole Sodium) 40 Mg Tablet.dr 40 MG PO DAILY for 30 Days, #30 TAB.SR Prov: ALESIA THOMPSON [facility] 04/16/25 Sanderson-3 Fatty Acids/Fish Oil (Sanderson 3 1,000 mg Softgel) 300 Mg-1,000 Mg Capsule 1 CAP PO Q12H for 90 Days, #180 CAP Prov: ALESIA THOMPSON [facility] 04/16/25 Methylprednisolone (Medrol Dosepak) 4 Mg Tab.ds.pk 0 PO UD, #21 TAB 0 Refills take 6 Pills Day 1, 5 Pills Day 2, 4 Pills Day 3, 3 Pills Day 4, 2 Pills Day 5 and 1 pill Day 6 Prov: ALESIA THOMPSON [facility] 04/16/25 Sotalol Hcl* (Betapace*) 80 Mg Tablet 80 MG PO Q12H for 90 Days, #180 TAB Prov: ALESIA THOMPSON [facility] 04/16/25 Signature Scribe Signature: None Attestation: My dictation VIDAL GUZMÁN NP Apr 14, 2025 17:08 SAM HENDERSON MD Apr 14, 2025 18:30
--- NOTE | 2025-04-14 17:16 | ELECTROCARDIOGRAPH REPORT ---
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 Eliezer Dietz Measurements Intervals Eastern Rate: 167 P: 53 AL: 98 QRS: 48 QRSD: 86 T: -12 QT: 264 QTc: 441 Interpretive Statements Sinus tachycardia Borderline T abnormalities, inferior leads Baseline wander in lead(s) V1,V3 Electronically Signed On 04-15-2025 18:22:[address] Eliezer Dietz Please click the below link to view image of tracing.
[2025-04-14] MEDS ORDERED: adenosine 3mg/ml 2ml vial IV ONE ×3 (17:20)
[2025-04-14] MEDS: LORazepam 2 mg/ml vial IV ONE (17:30)
[2025-04-14 17:44] LABS: BASOPHILS % (AUTO) 0.3 % (0-1); EOSINOPHILS # (AUTO) 0.4 X10'3 (0-0.9); EOSINOPHILS % (AUTO) 3.2 % (0-6); HEMATOCRIT 51.7 % (35.0-45.0); HEMOGLOBIN 17.4 g/dl (12.0-16.0); LYMPHOCYTES # (AUTO) 2.9 X10'3 (1.1-4.8); LYMPHOCYTES % (AUTO) 22.8 % (21-51); MEAN CORPUSCULAR HEMOGLOBIN 28.9 PG (27.0-31.0); MEAN CORPUSCULAR HGB CONC 33.7 g/dL (33.0-36.5); MEAN CORPUSCULAR VOLUME 85.8 FL (78-98); MEAN PLATELET VOLUME 8.2 FL (7.4-10.4); MONOCYTES # (AUTO) 0.7 X10'3 (0-0.9); MONOCYTES % (AUTO) 5.3 % (2-12); NEUTROPHILS # (AUTO) 8.6 X10'3 (1.8-7.7); NEUTROPHILS % (AUTO) 68.4 % (42-75); PLATELET COUNT 306 X10'3 (140-440); RED BLOOD COUNT 6.03 X10'6 (4.20-5.60); RED CELL DISTRIBUTION WIDTH 12.8 % (11.5-14.5); WHITE BLOOD COUNT 12.5 X10'3 (4.5-11.0)
--- NOTE | 2025-04-14 17:49 | RADIOLOGY REPORT ---
CHEST RADIOGRAPH Indication: CP Technique: Single frontal view of the chest was obtained Comparison: DI CHEST,SINGLE VIEW on DOS: 04/09/25, DI CHEST,SINGLE VIEW on DOS: 01/16/25, DI CHEST,SING LE VIEW on DOS: 11/30/23 FINDINGS: Lines and Tubes: None. Lungs: No focal consolidation. Pleura: No effusion. No pneumothorax. Cardiomediastinal contours: Unremarkable Bones: No acute osseous abnormality. IMPRESSION: No acute cardiopulmonary disease.
[2025-04-14 17:56] LABS: ALBUMIN 4.2 G/DL (3.4-5.0); ANION GAP 11 (8-16); BLOOD UREA NITROGEN 9 MG/DL (7-18); BUN/CREATININE RATIO 10.3 (10.0-20.0); CALCIUM 9.1 MG/DL (8.5-10.1); CHLORIDE 100 MMOL/L (99-107); CREATININE 0.87 MG/DL (0.40-0.90); GLUCOSE 117 MG/DL (70-104); SODIUM 138 MMOL/L (135-145); TOTAL CARBON DIOXIDE 27.2 MMOL/L (24-32); eCRCL 82 ML/MIN; eGFR 76 ML/MIN
[2025-04-14] MEDS: normal saline 1000ml 1,000 ML IV SCH (18:12)
[2025-04-14] MEDS ORDERED: SUMA25TA35 PO (18:48)
[2025-04-14] MEDS ORDERED: ESCI20TA PO (18:48)
[2025-04-14] MEDS ORDERED: potassium Cl 20 mEq SR tablet PO PRN ×2 (19:25)
[2025-04-14] MEDS ORDERED: potassium Cl 40MEQ/1/2NS 520ml 520 ML IV PRN (19:25)
[2025-04-14] MEDS ORDERED: magnesium sulf-water 2g/50mL 50 ML IV PRN (19:25)
[2025-04-14] MEDS ORDERED: magnesium sulf-water 4G/100mL 100 ML IV PRN (19:25)
[2025-04-14] MEDS ORDERED: mag hydrox/Alum hydrox/simeth 30ml oral suspension PO PRN (19:25)
[2025-04-14] MEDS ORDERED: magnesium Cl slow-release 64mg tablet PO PRN (19:25)
[2025-04-14] MEDS ORDERED: acetaminophen 325mg tablet PO PRN (19:25)
[2025-04-14] MEDS ORDERED: magnesium hydroxide 30ml (MOM) UD suspension PO PRN (19:25)
[2025-04-14 19:49] LABS: APTT 26 SECONDS (22-32); PROTHROMBIN TIME 10.1 SECONDS (9.0-12.0)
[2025-04-14] MEDS: K and/or MAG REPLACEMENT MC SCH (20:26)
[2025-04-14] MEDS: docusate sod 100mg capsule PO SCH (20:34)
--- NOTE | 2025-04-14 21:18 | HISTORY AND PHYSICAL-Residence ---
History & Physical Providers to CC Resident Creating Document: DIONE HOPE, RES ~ History of Present Illness Primary Medical Doctor: veda agudelo Reason for Admit\Complaint: CHEST PAIN, SHORTNESS OF BREATHE History of Present Illness 29 year-old female (mother, Ms. Ashley cespedes ) with past medical history of PCOS, postural orthostatic tachycardia syndrome (POTS), recent wasp bite, presented to the ER with a chief complaints of chest pain, rated five to 6/10 left-sided chest, dull aching, radiating to left upper limb, even at rest . She endorses that she got recently admitted for Wasp sting bite and she had a anaphylactic shock and received two doses of epinephrine . she got a sinus tachycardia while she was still in the hospital and discharged on Friday . she has not being well after the discharge and [facility] with high heart rates and high blood pressures. On yesterday she tried to walk but she could not able to walk due to weakness of left upper limb and lower limb and did sustain for 10 minutes, with little confusion and without any slurring of speech, loss of consciousness, deviation of angle of mouth, drooping of eyelids, blurring of vision. She do reports dizzy while trying to stand up. Endorses shortness of breaths after the sting bite and she had to sit up for taking breathe and she feels restricted in the throat. She denied swelling of legs, wheezing, fever, cough. Discussed code status with the patient and patient wants to be in full code Allergies: Uncoded Allergies: BEE/WASP (Allergy, Severe, 04/09/25) Home Medications Home Medications Active Epipen Jr (Epinephrine) 0.15 Mg/0.3 Ml Auto.injct 1 Syr IM ONCE PRN 1 Days Ibuprofen 600 Mg Tablet 1 Tab PO Q8H 3 Days with food Dexamethasone 6 Mg Tablet 1 Tab PO DAILY 4 Days Fioricet Tab (Butalb/Acetaminophen/Caffeine) 50 Mg-325 Mg-40 Mg Tablet 1 Tab PO Q6H PRN Ondansetron Odt (Ondansetron HCl) 8 Mg Tab.rapdis 1 Tab PO Q8H Metoprolol Tartrate* (Metoprolol Tartrate) 50 Mg Tablet 1 Tab PO TID 30 Days Reported Imitrex (Sumatriptan Succinate) 25 Mg Tablet 1 Tab PO DAILY 9 Days Lexapro (Escitalopram Oxalate) 20 Mg Tablet 1 Tab PO DAILY 30 Days Zepbound (Tirzepatide) 5 Mg/0.5 Ml Pen.injctr 5 Mg SUBCUT Lamotrigine 100 Mg Tab.er.24 1 Tab PO DAILY 30 Days Sumatriptan Succinate 50 Mg Tablet Past Medical History Past Medical History Pots PCOS Past Surgical History Surgical History Comment Three bilateral ovarian cyst removal Cholecystectomy Family History Family History: Patient reports no known family medical history. Past Social History Social History Comment She reports that she is using gummies Smoking: Non-Smoker Alcohol Use: None Drug Use: Marijuana Lives with: Mother Lives In: Home 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 ROS All Other Systems: Reviewed and Negative ROS Reviewed in full and negative except positive pertinent in HPI Cardiovascular: Reports: see HPI Exam Vitals: Vital Signs Date Time Temp Pulse Resp B/P (MAP) Pulse Ox O2 Delivery O2 Flow Rate FiO2 04/14/25 20:49 82 20 134/91 (105) 97 0 04/14/25 17:08 99.0 General: Const: Patient is in panic mode. Head: Atraumatic GENERAL: Alert, awake, oriented to time place person. Not in distress HEENT: Normal conjunctiva. Normal External Ears, Nose and Mouth. Moist mucous membranes. Airway is patent and no mucus no edema. Neck: Full range of motion. No meningismus, no stridor. Respiratory system: Clear to auscultation bilaterally. Normal work of breathing without use of accessory muscles.. Cardiovascular system: Tachycardia, irregular heart rate and rhythm 1st heart sound and 2nd heart sounds heard. no murmurs. Skin well perfused Gastrointestinal: Soft, non-tender, non-distended. Normal bowel sounds. No rebound or guarding Skin: No petechiae or rashes. Warm and dry Back: No midline or flank tenderness Extremities: No cyanosis, or edema Neurological: Awake and alert. No functional neurological deficits. Psych: Normal Mood and Affect Diagnostic Data Last Recorded Lab Results: 04/14/25 1728 04/14/25 1728 Diagnostic Data: Laboratory Tests Test 04/14/25 17:28 Prothrombin Time 10.1 SECONDS (9.0-12.0) INR International Normalized Ratio 1.0 INR Activated Partial Thromboplast Time 26 SECONDS (22-32) Coagulation Comments Advance Care Planning Advanced Care planning: Add on additional 30 min Additional Plan Tachycardia secondary to Wasp bite SVT Chest pain likely secondary to possible unstable angina versus vasospastic angina Initially EKG showing SVT and then sinus tachycardia without any ischemic/infarct changes Resolved with carotid massage Troponins are negative Patient may benefit from IV adenosine if SVT recurrs Continue to monitor telemetry CTA on April 09 ruled out PE TIA ABCD2 score of four, moderate risk Blue ita Neurology consults were placed and we will appreciate the recommendations CT head ruled out acute intracranial event UTI WBC counts elevated UA is positive for leukocyte esterase Lactic acid and procalcitonin is normal Received one dose of ceftriaxone Anxiety Received 0.5 mg of Ativan IV and she felt better in the ER. 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 Attestation of HP only, care immediately directed to hospitalist team - Magnesium 6mg x 1 - Trops neg. CTA to r/o low likelihood early disection - SVT with self resolution. Cardio eval - Rocphin x 3 day for UTI - Demetria for DVT proph Patient seen through remote audiovisual assessment through HIPAA compliant setup. All labs, flowsheets, and images reviewed. Date of Service: Apr 14, 2025 Billing Provider: CONSTANCE ADAMES Jr. DO DIONE HOPE, RES Apr 14, 2025 21:18 CONSTANCE ADAMES Jr., DO Apr 15, 2025 04:44
--- NOTE | 2025-04-14 22:15 | RADIOLOGY REPORT ---
EXAM: CT CT HEAD INDICATION: TIA TECHNIQUE: CT of the head without intravenous contrast. Radiation Dose Information: CT Dose: CTDI volume is 62.54 mGy. Dose-length product is 1085.81 mGy*cm The dose indicators for CT are the volume Computed Tomography (CT) Dose Index (CTDIvol) and the Dose Length Product (DLP), and are measured in units of mGy and mGy-cm, respectively. These indicators are not patient dose, but values generated from the CT scanner acquisition factors. The report includes radiation exposure data for exposures received during this examination. COMPARISON: None FINDINGS: The cerebral parenchyma appears to be normal configuration and attenuation. The ventricles, cisterns , and sulci appear age-appropriate. There is no evidence for acute territorial infarct, hemorrhage, or mass effect. The orbits are normal. The visualized paranasal sinuses and mastoid air cells are clear. The soft t issues and osseous structures appear within normal limits. IMPRESSION: 1. No acute territorial infarct, intracranial hemorrhage, or mass effect. 2. If clinical symptoms persist, MRI may be beneficial in further assessment.
[2025-04-14 22:19] LABS: URINE HCG NEGATIVE (NEG)
[2025-04-14 22:20] LABS: BILIRUBIN,URINE NEGATIVE (Neg); CLARITY,URINE CLEAR (Clear); COLOR,URINE YELLOW (Yellow); GLUCOSE, URINE NEGATIVE (Neg); KETONES,URINE NEGATIVE (Neg); LEUKOCYTE ESTERASE ,URINE TRACE (Neg); NITRITES, URINE NEGATIVE (Neg); OCCULT BLOOD,URINE NEGATIVE (Neg); PROTEIN,URINE NEGATIVE (Neg); UROBILINOGEN,URINE 0.2 E.U/dL (0.2-1.0)
[2025-04-14 22:29] LABS: UA COLLECTION TYPE CLN CATCH MIDSTREAM
[2025-04-14 22:32] LABS: BACTERIA,URINE FEW /HPF (Neg); RBC,URINE NONE SEEN /HPF (0-2); SQUAMOUS EPITHELIAL CELL,UR MANY /LPF (FEW); WBC,URINE 0-4 /HPF (0-4)
[2025-04-15] VITALS (8 sets, daily range): BP systolic 112–140; BP diastolic 72–93; PULSE 73–85; RESP 12–22; TEMP 96.8–97.7; O2SAT 96–100
[2025-04-15] MEDS: heparin, porcine 5000 units/ml vial SQ SCH (00:09)
[2025-04-15] MEDS: acetaminophen 325mg tablet PO PRN (01:14)
[2025-04-15] MEDS: morphine 2 MG/ML inj. syringe IV PRN ×2 (02:07→22:38)
--- NOTE | 2025-04-15 02:23 | [facility] CONSULT REPORT ---
[facility] Procedure Note [facility] Procedure Note Consult [facility] Note # Demographics Consult Type: Acute Stroke Level 2 (4.5-24 hrs) Patient Location: Inpatient First Name: Melvina Last Name: Haroon Date of : 1995 Age: 29 Gender: Female Facility: [facility] Time of Initial Page (): 04/15/2025 01:29 Time of Return Call (): 04/15/2025 01:29 # HPI History: 29 w/POTS who p/w chest pain. Endorsed episode of LUE/LLE weakness x 10 minutes day prior. She had a migraine at that time Has had chest discomfort and pain since a wasp bite on Friday. That caused anaphylaxis. Her LUE keeps going down, and radiating down. # Scores Time of exam and NIHSS (): 04/15/2025 02:19 Level of Consciousness 1a: [0] = Alert; keenly responsive LOC Questions 1b: [0] = Answers both questions correctly LOC Commands 1c: [0] = Performs both tasks correctly Best Gaze 2: [0] = Normal Visual 3: [0] = No visual loss Facial Palsy 4: [0] = Normal symmetrical movements Motor Arm Left 5a: [0] = No drift Motor Arm Right 5b: [0] = No drift Motor Leg Left 6a: [0] = No drift Motor Leg Right 6b: [0] = No drift Limb Ataxia 7: [0] = Absent Sensory 8: [1] = Tqoq-wf-cafervzy sensory loss Best Language 9: [0] = No aphasia Dysarthria 10: [0] = Normal Extinction and Inattention 11: [0] = No abnormality NIHSS Total: 1 # Data Time Head CT personally read by me (): 04/15/2025 02:[address]: - no bleed - preliminarily reviewed by me, please refer to radiology read for official reading # Assessment Impression: Recurrent episodes of LUE numbness/chest discomfort after wasp bite. Also episode of LUE/LLE weakness yesterday. Differential includes complex migraine causing transient deficts, demyelination, or less likely stroke. # Plan Thrombolytic/Intervention: NOT IV Thrombolysis or IA Intervention candidate Thrombolytic Exclusion: > 4.5 hours Intraarterial Exclusion: no LVO signs Imaging: (urgency: routine): - MRI Brain with AND without contrast - MRI C spine Other: - If patient has any neurological deterioration please call me back immediately - I have discussed my recommendations with the referring provider Disposition: continue admission # Logistics Attestation of consult completion: The patient is located at: [facility]. Facility staff participated in the visit. I performed this telemedicine visit from my offsite office utilizing interactive 2 way audio and visual telecommunication technology. Consent: Verbal consent was obtained from the patient and/or family for this encounter. Total time spent in telemedicine encounter: I spent 15 minutes reviewing clinical data and/or imaging, obtaining history, examining the patient, communicating with the onsite care team, and in preparation of this report. # Demographics First Name: Melvina Last Name: Patiño Facility: [facility] Neuro Consult Order placed for: Yes NIKITA DONOVAN MD Apr 15, 2025 02:23
[2025-04-15] MEDS: CefTRIAXone/D5W-Rocephin 1gm 50 ML IV ONE (02:27)
[2025-04-15] MEDS: ondansetron/PF 4mg/2ml inj IV PRN (03:55)
--- NOTE | 2025-04-15 06:19 | ELECTROCARDIOGRAPH REPORT ---
[facility] Test Date: 2025-04-15 Test Time: 02:03:56 Pat Name: CATHY RODRIGUEZ Department: 3rd FLOOR PCU Room: [facility] [address] Gender: F Telephone Sex Worker: : 1995 Requested By: DIONE HOPE Order Number: [id number] Reading MD: Dr. Danica Gray Measurements Intervals [place] Rate: 85 P: 10 [place]: 176 QRS: 29 QRSD: 90 T: 34 QT: 373 QTc: 444 Interpretive Statements Sinus rhythm Ventricular premature complex Electronically Signed On 04-15-2025 7:20:[address] Danica Gray Please click the below link to view image of tracing.
[2025-04-15 07:28] LABS: BASOPHILS % (AUTO) 0.2 % (0-1); EOSINOPHILS # (AUTO) 0.4 X10'3 (0-0.9); EOSINOPHILS % (AUTO) 3.5 % (0-6); HEMATOCRIT 41.7 % (35.0-45.0); HEMOGLOBIN 13.9 g/dl (12.0-16.0); LYMPHOCYTES # (AUTO) 3.7 X10'3 (1.1-4.8); LYMPHOCYTES % (AUTO) 31.2 % (21-51); MEAN CORPUSCULAR HEMOGLOBIN 28.8 PG (27.0-31.0); MEAN CORPUSCULAR HGB CONC 33.4 g/dL (33.0-36.5); MEAN PLATELET VOLUME 8.3 FL (7.4-10.4); MONOCYTES # (AUTO) 0.6 X10'3 (0-0.9); MONOCYTES % (AUTO) 4.9 % (2-12); NEUTROPHILS # (AUTO) 7.2 X10'3 (1.8-7.7); NEUTROPHILS % (AUTO) 60.2 % (42-75); PLATELET COUNT 227 X10'3 (140-440); RED BLOOD COUNT 4.85 X10'6 (4.20-5.60); RED CELL DISTRIBUTION WIDTH 12.7 % (11.5-14.5); WHITE BLOOD COUNT 11.9 X10'3 (4.5-11.0)
[2025-04-15] MEDS ORDERED: iohexol 350MG/ML 100ml bottle IV ONE (07:37)
[2025-04-15 08:06] LABS: ALANINE AMINOTRANSFERASE 77 U/L (12-78); ALBUMIN 3.1 G/DL (3.4-5.0); ALKALINE PHOSPHATASE 86 IU/L (46-116); ANION GAP 12 (8-16); ASPARTATE AMINO TRANSFERASE 111 U/L (10-37); BILIRUBIN,TOTAL 0.2 MG/DL (0.1-1.0); BLOOD UREA NITROGEN 8 MG/DL (7-18); BUN/CREATININE RATIO 10.3 (10.0-20.0); CHLORIDE 105 MMOL/L (99-107); CREATININE 0.78 MG/DL (0.40-0.90); GLUCOSE 82 MG/DL (70-104); MAGNESIUM 1.9 MG/DL (1.5-2.4); SODIUM 141 MMOL/L (135-145); TOTAL PROTEIN 6.1 G/DL (6.4-8.2); eCRCL 91 ML/MIN; eGFR 87 ML/MIN
[2025-04-15 08:08] LABS: POTASSIUM 3.8 MMOL/L (3.5-5.1)
--- NOTE | 2025-04-15 08:45 | RADIOLOGY REPORT ---
Indication: NON ANGINAL CHEST PAIN Technique: CT axial images of the chest, abdomen and pelvis are obtained with intravenous contrast. Coronal and sagittal reformats were obtained. Radiation Dose Information: CTDI volume is 25.8 mGy. Dose-length product is 1860 mGy*cm Comparison: None FINDINGS: The heart is normal in size. The thoracic aorta is normal in caliber without evidence for aneurysmal dilatation or dissection. The abdominal aorta is normal in caliber without evidence for aneurysmal d ilatation/ dissection. Trachea patent. No pneumothorax. No pleural effusion. No pulmonary airspace consolidation. Heart normal in size. No supraclavicular, axillary lymphadenopathy. No mediastinal/ hilar lymphadeno randa. Adrenal glands, spleen, pancreas unremarkable. Hepatic steatosis. Cholecystectomy. The kidneys demonstrate no hydronephrosis. Stomach is partially distended. Small bowel loops are normal in caliber. Moderate volume stool within the colon. Normal appendix. Bladder is partially distended. There is a left ovarian cystic lesions measuring up 3.8 cm. No free pelvic fluid. No inguinal lymphadenopathy. No aggressive osseous process. Mild thoracolumbar dextrocurvature. IMPRESSION: No evidence for aortic dissection/aneurysmal dilatation. Hepatic steatosis. Cholecystectomy. A 3.8 cm left ovarian cystic lesion measuring 3.8 cm. Recommend pelvic ultrasound to further charact erize. Other findings as described.
[2025-04-15] MEDS: nitroGLYCERIN 0.4mg SUBLingual tab SL PRN (10:40)
--- NOTE | 2025-04-15 11:38 | PROGRESS NOTE ---
Daily Progress Note Providers to CC ~ Antibiotic Timeout Antibiotic Ordered?: No Subjective No acute events overnight. Patient examined at bedside. No new complaints not in acute distress. Patient denies sob, palpitations, abdominal pain, n/v/d. Reports intermittent chest tightness. Trops negative. Vss, tele sinus in 80s-90s after carotid massage with findings of SVT in ED. Consulted cutting and printing machine operator Dr. Caballero. 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: CN II-XII intact, no focal deficits Musculoskeletal: No paraspinal muscle tenderness, no muscle spasm Skin: Warm and intact Coagulation Studies Laboratory Tests Test 04/14/25 17:28 Prothrombin Time 10.1 SECONDS (9.0-12.0) INR International Normalized Ratio 1.0 INR Activated Partial Thromboplast Time 26 SECONDS (22-32) Coagulation Comments Problem\Assessment\Plan Assessment Tachycardia after anaphylaxis to wasp bite SVT Chest pain likely secondary to possible unstable angina versus vasospastic angina, HEART score 1 TIA, unlikely Anxiety UTI, asymptomatic female -Initially EKG showing SVT and then sinus tachycardia without any ischemic/infarct changes -Resolved with carotid massage -Troponin negative -CTA on 04/09/25 ruled out PE -evaluated by teleneurologist Plan -04/15: consulted cutting and printing machine operator Dr. Caballero, recommend sotalol -MRI head w/wo contrast, TSH/T4, lipids pending DVT/VTE prophylaxis: heparin Code status: Full code Date of Service: Apr 15, 2025 Billing Provider: ALESIA THOMPSON Common Visit Codes: 22556-[id number] INP/OBS CARE(HIGH) ALESIA THOMPSON Apr 15, 2025 11:38
[2025-04-15 11:56] LABS: FREE T4 (FREE THYROXINE) 0.98 NG/DL (0.73-1.40); HDL CHOLESTEROL 34 MG/DL (35-60); THYROID STIMULATING HORMONE 5.78 ulU/ml (0.34-4.50); TRIGLYCERIDES 343 MG/DL (20-135)
[2025-04-15 12:22] LABS: CHOL/HDL RATIO 4.8 (0.00-4.99); CHOLESTEROL 163 MG/DL (0-200); LDL CHOLESTEROL 80 MG/DL (50-100)
[2025-04-15] MEDS: sotalol HCl 40mg (1/2 tablet) PO ONE (12:34)
--- NOTE | 2025-04-15 14:35 | CARDIOLOGY REPORT ---
APPROVED REPORT EXAM: Limited 2D, Doppler, and color-flow Echocardiogram. 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 104.9 cm/s AO Peak GR. 4.4 mmHg Tricuspid Valve TR P. Velocity 137 cm/s RAP ESTIMATE 10 mmHg TR Peak Gr. 7 mmHg RVSP 17 mmHg LEFT VENTRICLE Normal LV size and wall thickness. Overall systolic function is normal. LVEF is 65-70%. Unchanged fr om previous echo. RIGHT VENTRICLE Right ventricle is mildly dilated with normal function. Unchanged from previous echo. ATRIA The left atrium size is normal. Unchanged from previous echo. AORTIC VALVE The aortic valve is normal in structure without stenosis. No insufficiency. AV not fully evaluated du e to limited focused exam. MITRAL VALVE Mild mitral annular calcification without stenosis. Trace regurgitation. MV not fully evaluated due t o limited focused exam. TRICUSPID VALVE The tricuspid valve is normal in structure with trace regurgitation. Unchanged from previous echo. PULMONIC VALVE Pulmonic valve is grossly normal in structure. Unchanged from previous echo. GREAT VESSELS The aortic root is normal in size. Unchanged from previous echo. The IVC is normal in size and colla pses >50% with inspiration. PERICARDIUM Normal pericardium. No effusion. Unchanged from previous echo. Other Information Study Quality: Adequate Conclusion LVEF is 65-70%. Unchanged from previous echo. Normal LV size and wall thickness. Overall systolic function is normal. Right ventricle is mildly dilated with normal function. Unchanged from previous echo. The aortic valve is normal in structure without stenosis. No insufficiency. AV not fully evaluated due to limited focused exam. Mild mitral annular calcification without stenosis. Trace regurgitation. MV not fully evaluated due to limited focused exam. The tricuspid valve is normal in structure with trace regurgitation. Unchanged from previous echo. Pulmonic valve is grossly normal in structure. Unchanged from previous echo. Normal pericardium. No effusion. Unchanged from previous echo.
[2025-04-15] MEDS: GADOTERATE MEGLUMINE 7.5 MMOL/15 ML VIAL IV ONE (15:44)
--- NOTE | 2025-04-15 17:44 | RADIOLOGY REPORT ---
PROCEDURE: MR MRI HEAD INDICATION: cva, demyelination EXAM DATE: 04/15/2025 03:53 PM COMPARISON: CT CT HEAD on DOS: 04/14/25 TECHNIQUE: MRI of the brain and without 15 cc clariscan intravenous contrast. FINDINGS: Diffusion weighted images of the brain demonstrate no evidence of acute infarction. There is no evidence of acute intracranial hemorrhage, extra-axial collection, mass effect, midline s hift, herniation or hydrocephalus. The ventricles, sulci and cisterns appear age appropriate. Mild periventricular and deep white matter signal abnormality consistent with demyelinating disease. No associated enhancement to suggest active demyelination. The major vascular flow voids are present. The visualized paranasal sinuses and mastoid air cells are clear. The surrounding soft tissues and o sseous structures are unremarkable. IMPRESSION: 1. No evidence of acute infarction, intracranial hemorrhage, mass effect or hydrocephalus. 2. Mild periventricular and deep white matter signal abnormality consistent with demyelinating diseas e. No associated abnormal enhancement to suggest active demyelination. Clinical correlation and con tinued follow-up is recommended. HS:Y
[2025-04-15] MEDS: sotalol 80mg tablet PO SCH (19:59)
[2025-04-15] MEDS: diphenhydrAMINE 25mg capsule PO ONE (21:41)
[2025-04-16 02:00] VITALS: BP 130/89; PULSE 73; RESP 22; TEMP 97; O2SAT 97
--- NOTE | 2025-04-16 05:10 | CONSULTATION ---
DATE OF CONSULTATION: 04/15/2025 DICTATING PHYSICIAN: DANII Caballero MD CARDIOLOGY CONSULTATION REQUESTING PHYSICIAN: Dr. Vital. IDENTIFICATION: A 29-year-old female with a history of wasp bite, anaphylactic reaction, history of POTS, PCOS with atrial arrhythmias. HISTORY OF PRESENT ILLNESS: The patient is a 29-year-old female with obesity, PCOS, and a diagnosis of POTS. Apparently, the patient came to the emergency room under prior admission on 04/09/2025 when she developed severe difficulty in breathing after a wasp bite, came to the emergency room. Apparently, she could not breathe and her ear was closing with a chest pain, palpitations, swelling, and shortness of breath. She was given epinephrine, Decadron, morphine, Ativan and amiodarone. Amiodarone was not given because there was tachycardia, question of AFib. Subsequently, she needed second EpiPen and she was observed until 04/10/2025 and was discharged home. Since she had sinus tachycardia, an echocardiogram was obtained and showed an EF of 65-70% with no significant valvular abnormalities. Following the echocardiogram, the EKG showed normal sinus rhythm and she was sent home. She came back to the emergency room on 04/14/2025, found to be in narrow complex tachycardia, heart rate in the 160s and which she did improve with treatment and she was hospitalized for further evaluation. The patient states she was diagnosed at age 10 and she was in the fifth grade with partial orthostasis tachycardia syndrome, was evaluated at [facility], Pediatric Cardiology. She had a tilt test and workup related to her condition at that time and was put on metoprolol tartrate 50 mg p.o. t.i.d. with which her symptoms have been controlled, which was continued. Until age 17, she was followed by Pediatric Cardiology. Subsequently, she is followed by [facility] in [place] where she sees them once a year, same medicines have been continued. She also has a history of probably PCOS and she had 2 ovarian cysts removal by , the third surgery by Dr. Mathew. Subsequently, the patient has a normal menstrual period, although she has a normal and delivery and her daughter is 11 years old. The patient does not recall any arrhythmias prior to wasp bite at least what she can recall. This history was also confirmed with her mother. The patient has been having episodes of substernal chest pain radiating to the left arm intermittently since her last hospitalization for wasp bite and then because of left arm neurologic symptoms, she also had a neurologic evaluation, which did not reveal much. After morning, the patient did have a heart rate in the 140s, with some chest pain, for which she was given sublingual nitroglycerin, with which her pain gradually resolved. PAST MEDICAL HISTORY: * Partial orthostatic tachycardia syndrome. * PCOS. * Complex migraine. PAST SURGICAL HISTORY: Ovarian cyst surgery x 3. 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 She is , lives with her . Has an 11-year-old child and father is 63-year-old, mother is 62-year-old. No cardiac history. No history of tobacco or alcohol use or substance abuse. REVIEW OF SYSTEMS: HEENT: No visual or hearing impairment. RESPIRATORY: No pulmonary issues. MUSCULOSKELETAL: None. CENTRAL NERVOUS SYSTEM: No stroke, TIA or seizures. PSYCHIATRIC: No anxiety or depression. PHYSICAL EXAMINATION: GENERAL: The patient is conscious, alert, oriented, and comfortable at rest. HEENT: Pupils are equal and reactive. VITAL SIGNS: Temperature is 96.8, pulse 81, blood pressure 112/78. NECK: No JVD. Carotids are equally well felt. CARDIAC: Regular rate and rhythm. S2 and S2 normal. No S3 or S4. LUNGS: Clear to auscultation bilaterally. ABDOMEN: Soft. Bowel sounds present. No hepatosplenomegaly. EXTREMITIES: No edema, cyanosis, or clubbing. DIAGNOSTIC DATA: EKG from ER shows sinus narrow complex tachycardia at 167 per minute which resolved with carotid sinus massage. Another episode this morning also shows narrow complex tachycardia at 140 per minute. LABORATORY DATA: WBC 11.9, hemoglobin 13.9, hematocrit 41.7, platelet count 227. Sodium 141, potassium 3.8, chloride 105, bicarbonate 24, BUN 10, creatinine 0.78, triglycerides 343, total cholesterol 163. ASSESSMENT AND PLAN: * A 29-year-old female with wasp bite with anaphylactic reaction, requiring EpiPen about back in 04/09/2025, currently stable. * Episodes of narrow complex tachycardia despite being on metoprolol tartrate 50 mg p.o. t.i.d. Option of changing to a sotalol. Risks, benefits, alternative options discussed with the patient and her mother, both agree. We will change to sotalol 80 mg p.o. b.i.d. Check EKG in the a.m. * Hypertriglyceridemia. Triglycerides elevated. Recommend diet, weight loss, and exercise program. [place]-3 of 1 g p.o. b.i.d. The patient to check her lipid panel with her PMD in about two months. If they are still elevated, consider fenofibrate. * History of complex migraine, obesity. BV MD Federico TID: [id number] RECEIPT: [id number] KALLI/DIMA/MATEO MTDD
[2025-04-16 06:00] VITALS: BP 109/70; PULSE 71; RESP 13; TEMP 97.4; O2SAT 96
[2025-04-16 06:21] LABS: BASOPHILS # (AUTO) 0.1 X10'3 (0-0.2); BASOPHILS % (AUTO) 0.9 % (0-1); EOSINOPHILS # (AUTO) 0.4 X10'3 (0-0.9); EOSINOPHILS % (AUTO) 3.5 % (0-6); HEMATOCRIT 43.2 % (35.0-45.0); HEMOGLOBIN 14.6 g/dl (12.0-16.0); LYMPHOCYTES # (AUTO) 3.6 X10'3 (1.1-4.8); LYMPHOCYTES % (AUTO) 34.1 % (21-51); MEAN CORPUSCULAR HEMOGLOBIN 29.6 PG (27.0-31.0); MEAN CORPUSCULAR HGB CONC 33.8 g/dL (33.0-36.5); MEAN CORPUSCULAR VOLUME 87.8 FL (78-98); MEAN PLATELET VOLUME 8.5 FL (7.4-10.4); MONOCYTES # (AUTO) 0.7 X10'3 (0-0.9); MONOCYTES % (AUTO) 6.7 % (2-12); NEUTROPHILS # (AUTO) 5.8 X10'3 (1.8-7.7); NEUTROPHILS % (AUTO) 54.8 % (42-75); PLATELET COUNT 191 X10'3 (140-440); RED BLOOD COUNT 4.92 X10'6 (4.20-5.60); RED CELL DISTRIBUTION WIDTH 12.5 % (11.5-14.5); WHITE BLOOD COUNT 10.5 X10'3 (4.5-11.0)
--- NOTE | 2025-04-16 06:37 | ELECTROCARDIOGRAPH REPORT ---
[facility] Test Date: 2025-04-15 Test Time: 23:30:42 Pat Name: CATHY RODRIGUEZ Department: 3rd FLOOR PCU Room: [place] [id number] B Gender: F Light Industrial: : 1995 Requested By: DIONE HOPE Order Number: [id number] Reading MD: Dr. Danica Gray Measurements Intervals [place] Rate: 82 P: 11 GA: 179 QRS: 38 QRSD: 93 T: 21 QT: 391 QTc: 457 Interpretive Statements Age not entered, assumed to be 49 years old for purpose of ECG interpretation Sinus rhythm Electronically Signed On 04-16-2025 7:22:[address] Danica Gray Please click the below link to view image of tracing.
[2025-04-16 06:38] LABS: ALANINE AMINOTRANSFERASE 80 U/L (12-78); ALBUMIN 3.2 G/DL (3.4-5.0); ALKALINE PHOSPHATASE 100 IU/L (46-116); ANION GAP 7 (8-16); BILIRUBIN,TOTAL 0.4 MG/DL (0.1-1.0); BLOOD UREA NITROGEN 8 MG/DL (7-18); BUN/CREATININE RATIO 10.5 (10.0-20.0); CALCIUM 8.4 MG/DL (8.5-10.1); CHLORIDE 103 MMOL/L (99-107); CREATININE 0.76 MG/DL (0.40-0.90); GLUCOSE 92 MG/DL (70-104); MAGNESIUM 1.9 MG/DL (1.5-2.4); SODIUM 136 MMOL/L (135-145); TOTAL CARBON DIOXIDE 25.9 MMOL/L (24-32); TOTAL PROTEIN 6.5 G/DL (6.4-8.2); eCRCL 93 ML/MIN; eGFR 89 ML/MIN
[2025-04-16 06:39] LABS: ASPARTATE AMINO TRANSFERASE 41 U/L (10-37); POTASSIUM 4.5 MMOL/L (3.5-5.1)
[2025-04-16] MEDS ORDERED: METH4TAB81 PO (07:54)
[2025-04-16] MEDS ORDERED: SOTA80TA73 PO (07:54)
[2025-04-16 08:00] VITALS: RESP 16; O2SAT 99
[2025-04-16] MEDS: methylPREDNISolone sod succ 125mg/2ml vial IV SCH (08:19)
[2025-04-16] MEDS: OMEGA-3/DHA/EPA/FISH OIL 1 EACH CAPSULE.DR PO SCH (08:20)
[2025-04-16] MEDS ORDERED: OMEG1CAP46 PO (09:04)
--- NOTE | 2025-04-16 09:33 | ELECTROCARDIOGRAPH REPORT ---
[facility] Test Date: 2025-04-16 Test Time: 09:32:03 Pat Name: CATHY RODRIGUEZ Department: [facility] Patient ID: [facility]-[id number] Room: [place] [address] B Gender: F Director Of Media: ERNST : 1995 Requested By: ALESIA THOMPSON Order Number: [id number] Reading MD: Dr. DANII Caballero Measurements Intervals [place] Rate: 89 P: 17 TN: 169 QRS: 41 QRSD: 94 T: 35 QT: 380 QTc: 463 Interpretive Statements Sinus rhythm Electronically Signed On 04-16-2025 19:17:[address] DANII Caballero Please click the below link to view image of tracing.
[2025-04-16 10:34] VITALS: RESP 20
[2025-04-16] MEDS ORDERED: PANT40TA54 PO (10:52)
[2025-04-16] MEDS: pantoprazole 40 MG vial IV SCH (11:26)
--- NOTE | 2025-04-16 12:11 | DISCHARGE SUMMARY ---
Discharge Summary Providers to CC ~ Discharge Summary Admission Diagnosis: CHEST PAIN,SVT Hospital Course DATE OF ADMISSION: 04/14/25 DATE OF DISCHARGE: 04/16/25 Discharge Diagnosis\\Comment: Tachycardia after anaphylaxis to wasp bite SVT Postural orthostatic tachycardia syndrome Chest pain, atypical- HEART score 1 Chest pain likely 2/2 anxiety disorder Hypertriglyceridemia TIA, unlikely Demyelinating disease- POA Anxiety disorder UTI, asymptomatic female PCOS Class I obesity GERD Operations\\Procedures: None Consultants: Pump Oiler Dr. Caballero, Teleneurologist Dr. Errol Santos Complications: None Condition on DC: Stable New Medications: Methylprednisolone (Medrol Dosepak) 4 Mg Tab.ds.pk 0 PO UD, #21 TAB 0 Refills take 6 Pills Day 1, 5 Pills Day 2, 4 Pills Day 3, 3 Pills Day 4, 2 Pills Day 5 and 1 pill Day 6 Pantoprazole Sodium (Pantoprazole Sodium) 40 Mg Tablet.dr 40 MG PO DAILY for 30 Days, #30 TAB.SR [place]-3 Fatty Acids/Fish Oil ([place] 3 1,000 mg Softgel) 300 Mg-1,000 Mg Capsule 1 CAP PO Q12H for 90 Days, #180 CAP Sotalol Hcl* (Betapace*) 80 Mg Tablet 80 MG PO Q12H for 90 Days, #180 TAB Continued Medications: Butalb/Acetaminophen/Caffeine (Fioricet Tab) 50 Mg-325 Mg-40 Mg Tablet 1 TAB PO Q6H PRN for headache, #20 TAB 0 Refills Dexamethasone (Dexamethasone) 6 Mg Tablet 1 TAB PO DAILY for 4 Days, #4 TAB 0 Refills Epinephrine (Epipen Jr) 0.15 Mg/0.3 Ml Auto.injct 1 SYR IM ONCE PRN for allergies for 1 Day, #0.6 ML 0 Refills Escitalopram Oxalate (Lexapro) 20 Mg Tablet 1 TAB PO DAILY for 30 Days, #30 TAB 0 Refills Ibuprofen (Ibuprofen) 600 Mg Tablet 1 TAB PO Q8H for pain for 3 Days, #9 TAB 0 Refills with food Lamotrigine (Lamotrigine) 100 Mg Tab.er.24 1 TAB PO DAILY for 30 Days, #30 TAB 0 Refills Ondansetron 8mg ODT (Ondansetron Odt) 8 Mg Tab.rapdis 1 TAB PO Q8H for nausea, #6 TAB Sumatriptan Succinate (Sumatriptan Succinate) 50 Mg Tablet Sumatriptan Succinate (Imitrex) 25 Mg Tablet 1 TAB PO DAILY for 9 Days, #9 TAB 0 Refills Tirzepatide (Zepbound) 5 Mg/0.5 Ml Pen.injctr 5 MG SUBCUT Discontinued Medications: Metoprolol Tartrate* (Metoprolol Tartrate*) 50 Mg Tablet 1 TAB PO TID for 30 Days, #30 TAB Discharge Summary: History of Present Illness From H&P: "Melvina Patiño is a 29 year-old female with past medical history of PCOS, postural orthostatic tachycardia syndrome (POTS), recent wasp bite, presented to the ER with a chief complaints of chest pain, rated five to 6/10 l eft-sided chest, dull aching, radiating to left upper limb, even at rest . She endorses that she got recently admitted for Wasp sting bite and she had a anaphylactic shock and received two doses of epinephrine . She got a sinus tachycardia while she was still in the hospital and discharged on Friday . she has not being well after the discharge and she went to [facility] [place] [facility] on this Friday with high heart rates and high blood pressures. On yesterday she tried to walk but she could not able to walk due to weakness of left upper limb and lower limb and did sustain for 10 minutes, with little confusion and without any slurring of speech, loss of consciousness, deviation of angle of mouth, drooping of eyelids, blurring of vision. She do reports dizzy while trying to stand up. Endorses shortness of breaths after the sting bite and she had to sit up for taking breathe and she feels restricted in the throat. She denied swelling of legs, wheezing, fever, cough." Hospital Course Diagnostic findings were notable for initial EKG revealing SVT and then sinus tachycardia without signs of ischemic changes. SVT resolved with initial treatment with carotid massage. Pertinent negative findings were negative troponin series, unremarkable CTA chest/thorax, HEART score 1, negative head CT, negative chest x-ray, unremarkable TSH/T4, no hypoxia, no hypotension, afebrile, unremarkable serum lytes. TTE revealed LVEF of 65-70% without significant valvular heart disease. Case was consulted with broadband technician Dr. Caballero with recommendation for discontinuing home metoprolol tartrate and starting sotalol. Telemetry remained sinus in 90s. Case was also consulted with teleneurologist Dr. Santos with index of suspicion for demyelination disease and migraine with recommendation for MRI head which resulted positive for findings consistent with demyelinating disease. Patient was started on steroid. Patient did not experience further complications throughout the entire hospital stay and made a good recovery. Patient was seen and examined on the day of discharge. On day of discharge, vss and labs unremarkable. Patient ambulates independently with unremarkable vital signs. All labs, diagnostic workups, discharge plan discussed with patient in details during visit before discharge. All questions and concerns answered to the best of my professional knowledge. Patient is to follow up with PCP, Dr. Caballero, outpatient neurologist within 2 weeks. Physical Exam General: A&Ox 3, NAD HEENT: Normocephalic, PERRLA Neck: Supple, trachea midline, no JVD Chest: Clear to auscultation bilaterally Cardiovascular: RRR, S1&S2 GI: Soft and nontender Extremities: No cyanosis/clubbing/or edema SUPERVISOR AUDIT CLERKS: CN II-XII intact, no focal deficits Musculoskeletal: No paraspinal muscle tenderness, no muscle spasm Skin: Warm and intact *Problems/Diagnosis: (1) Sinus tachycardia Status: Acute (2) Supraventricular tachycardia Status: Acute Total Time Spent on D/C: > 30 Minutes Date of Service: Apr 16, 2025 Billing Provider: ALESIA THOMPSON Common Visit Codes: 12160-JLM/OBS DISCH DAY >30min ALESIA THOMPSON Apr 16, 2025 12:11
== END 2025-04-16 13:22 | disposition home or self-care (01) | DRG 203 ==
LOC: ER 16:56 → ED HOLD 19:22 → PCU 3S 04-15 00:44
PROVIDERS: ADMIT Internal Medicine Critical Care Medicine; ATTEND Nurse Practitioner Family
PROC: B32T1ZZ Computerized Tomography (CT Scan) of Left Pulmonary Artery using Low Osmolar Contrast (ICD-10-PCS; principal; 2025-04-15)
PROC: B3201ZZ Computerized Tomography (CT Scan) of Thoracic Aorta using Low Osmolar Contrast (ICD-10-PCS; 2025-04-15)
PROC: B32S1ZZ Computerized Tomography (CT Scan) of Right Pulmonary Artery using Low Osmolar Contrast (ICD-10-PCS; 2025-04-15)
DX: R07.89 Other chest pain (principal); G37.9 Demyelinating disease of central nervous system, unspecified; G90.A Postural orthostatic tachycardia syndrome [POTS]; I47.10 Supraventricular tachycardia, unspecified; F41.9 Anxiety disorder, unspecified; N39.0 Urinary tract infection, site not specified; G43.909 Migraine, unspecified, not intractable, without status migrainosus; E78.1 Pure hyperglyceridemia; E28.2 Polycystic ovarian syndrome; E66.811 Obesity, class 1; K21.9 Gastro-esophageal reflux disease without esophagitis; Z79.899 Other long term (current) drug therapy; Z68.34 Body mass index [BMI] 34.0-34.9, adult; Z91.030 Bee allergy status; Z90.49 Acquired absence of other specified parts of digestive tract
CPT/HCPCS: 36415; 70450; 71045; 71275; 74174; 80048; 80053; 80061; 81001; 81025; 82542; 83605; 83735; 84145; 84439; 84443; 84484; 85025; 85610; 85730; 87040; 87081; 93005; 93308; 96374; 99291; A4615; G0378; J0696; J1644; J2060; J2270; J2405; J2470; J2919; J7030; Q0163; Q9967

== ENCOUNTER 2025-04-18 20:34 | Emergency (ER) | payer MEDICAID ==
[~2025-04-18] VITALS: Ht 160 cm; Wt 90.9 kg
[~2025-04-18 20:34] MED LIST changes: +ESCI20TA PO; +METH4TAB81 PO; -METO50TA17 PO; +OMEG1CAP46 PO; +PANT40TA54 PO; +SOTA80TA73 PO; +SUMA25TA35 PO
--- NOTE | 2025-04-18 20:46 | Physician Documentation ---
History of Present Illness ~ Stated Complaint: DIFFICULTY BREATHING Time Seen by MD: 20:47 Primary Medical Doctor: veda agudelo HPI Patient presents to the emergency room with chief complaint of shortness of breath of sudden onset this evening with associated left-sided chest pain. She was admitted here twice this week once for anaphylaxis as well as another time for the same chest pain. Neurology was consulted also as patient has POTS and other strange symptoms therefore MRI was performed which was positive for dem yelinating disease and she was placed on a steroid med reports that she is to follow up with a neurologist in a few weeks. Today she is going up some stairs and suddenly felt unusual with significant shortness of breath and wheezing therefore patient brought to the emergency room. During patient's stay this past week she did develop supraventricular tachycardia and which Dr. chad nathan changed the patient from metoprolol to sotalol. Medication Reconciliation Allergies: Uncoded Allergies: BEE/WASP (Allergy, Severe, 04/09/25) Scheduled Dexamethasone (Dexamethasone), 1 TAB PO DAILY Escitalopram Oxalate (Lexapro), 1 TAB PO DAILY, (Reported) Ibuprofen (Ibuprofen), 1 TAB PO Q8H Lamotrigine (Lamotrigine), 1 TAB PO DAILY, (Reported) Methylprednisolone (Medrol Dosepak), 0 PO UD [place]-3 Fatty Acids/Fish Oil ([place] 3 1,000 mg Softgel), 1 CAP PO Q12H Ondansetron 8mg ODT (Ondansetron Odt), 1 TAB PO Q8H Pantoprazole Sodium (Pantoprazole Sodium), 40 MG PO DAILY Sotalol Hcl* (Betapace*), 80 MG PO Q12H Sumatriptan Succinate (Imitrex), 1 TAB PO DAILY, (Reported) Scheduled PRN Butalb/Acetaminophen/Caffeine (Fioricet Tab), 1 TAB PO Q6H PRN for headache Epinephrine (Epipen Jr), 1 SYR IM ONCE PRN for allergies Miscellaneous Medications Sumatriptan Succinate (Sumatriptan Succinate), (Reported) Tirzepatide (Zepbound), 5 MG SUBCUT, (Reported) Discontinued Medications Metoprolol Tartrate* (Metoprolol Tartrate*), 1 TAB PO TID Sumatriptan Succinate (Imitrex), 1 TAB PO DAILY, (Reported) Discontinued Reason: patient no longer taking Past Medical History Past Medical History: Headache, Migraine, *CARDIOVASCULAR*, *RENAL/* Past Surgical History: cholecystectomy, other Patient History: Patient reports no known family medical history. Alcohol Use: None Drug Use: marijuana Lives with: Mother Lives In: Home 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 Review of Systems ROS All review of systems negative except as per HPI Physical Exam Physical Exam General: Patient is awake, alert, oriented x4 in mild distress. Anxious. No rash Head: Normocephalic and atraumatic. Eyes: Conjunctival normal. EOMI. PERRL. ENT: Mucous membranes moist. Neck: Supple, trachea is midline. Chest: Mild bilateral expiratory wheeze. There is no accessory muscle use or retractions. Tachypneic Cardiac: Tachycardic and regular without murmurs, gallops, or rubs. Abd: Soft, nondistended, nontender, with normoactive bowel sounds. No guarding, rebound, or rigidity. Progress Progress Note Patient feeling significantly better but still complains of left-sided chest pain. Results/Orders Results/Orders Orders - JEF CLEMENTS MD Chest,Single View (04/18/25 20:55) Monitor (04/18/25 20:41) Saline Lock (04/18/25 20:41) Oxygen (04/18/25 20:41) Hs Troponin I W Calculations (04/18/25 22:41) Hs Troponin I W Calculations (04/18/25 23:41) Svn Treatment (04/18/25 20:51) Completed Orders - JEF CLEMENTS MD Chest,Single View (04/18/25 20:55) Cbc/Diff (04/18/25 20:41) BMP (04/18/25 20:41) PBNP (04/18/25 20:41) Electrocardiogram (04/18/25 20:41) Hs Troponin I W Calculations (04/18/25 20:41) Lorazepam Inj (Ativan Inj) (04/18/25 20:50) Morphine 4mg/Ml Inj. (Morphine Inj.) (04/18/25 20:50) Aspirin 325mg Tablet (Aspirin 325mg Tabl (04/18/25 20:50) Ipratropium/Albuterol Nebule (Ipratrop/A (04/18/25 20:55) Ketorolac Trometh 15mg/Ml Vial (Toradol (04/18/25 21:40) Medications Received in ER Medications (Trade) Dose Ordered Sig/Ramona Route PRN Reason Start Time Stop Time Status Last Admin Dose Admin (Ativan inj) 1 mg ONCE ONCE IV 04/18/25 20:50 04/18/25 20:51 DC 04/18/25 21:27 1 MG (morphine inj.) 4 mg ONCE ONCE IV 04/18/25 20:50 04/18/25 20:51 DC 04/18/25 21:27 4 MG (aspirin 325mg tablet) 1 tab ONCE ONCE PO 04/18/25 20:50 04/18/25 20:55 DC 04/18/25 21:27 1 TAB (ipratrop/ albuterol 0.5-3(2.5) MG/3ml nebule) 3 ml ONCE ONCE NEB 04/18/25 20:55 04/18/25 20:56 DC 04/18/25 21:01 3 ML Vital Signs 04/18/25 04/18/25 04/18/25 04/18/25 20:41 21:05 21:14 21:31 Temp 97.8 Pulse 110 93 86 Resp 28 18 18 B/P (MAP) 151/108 Pulse Ox 92 98 O2 Delivery Nasal Cannula* Nasal Cannula* O2 Flow Rate 0 2 2 FiO2 28 28 04/18/25 21:38 Temp 99.0 Pulse 92 Resp 20 B/P (MAP) 144/93 (110) Pulse Ox 96 O2 Flow Rate 2 Laboratory Tests Test 04/18/25 20:51 White Blood Count 19.2 H Red Blood Count 5.38 Hemoglobin 15.8 Hematocrit 46.5 H Mean Corpuscular Volume 86.4 Mean Corpuscular Hemoglobin 29.4 Mean Corpuscular Hemoglobin Concent 34.0 Red Cell Distribution Width 12.4 Platelet Count 310 Mean Platelet Volume 8.1 Neutrophils (%) (Auto) 86.1 H Lymphocytes (%) (Auto) 10.4 L Monocytes (%) (Auto) 2.8 Eosinophils (%) (Auto) 0.3 Basophils (%) (Auto) 0.4 Neutrophils # (Auto) 16.5 H Lymphocytes # (Auto) 2.0 Monocytes # (Auto) 0.5 Eosinophils # (Auto) 0.0 Basophils # (Auto) 0.1 CBC Comment Sodium Level 140 Potassium Level 4.6 Chloride Level 104 Carbon Dioxide Level 24.4 Anion Gap 12 Blood Urea Nitrogen 15 Creatinine 1.02 H Estimated GFR/1.73 m2 64 BUN/Creatinine Ratio 14.7 Glucose Level 163 H Calcium Level 9.1 Troponin I High Sensitivity < 4 L Troponin I High Sens Percent Delta Troponin I Hi Sens Absolute Change Pro-B-Type Natriuretic Peptide < 30 Albumin 4.2 Chemistry Comments EKG/XRAY/CT/US/VASC/MRI EKG : Additional Comment EKG interpreted by myself shows time of 2043 rate 108 sinus tachycardia, normal axis, no ST changes Chest X-Ray : Additional Comments Exam: CHEST,SINGLE VIEW CHEST RADIOGRAPH Indication: CP Technique: Single frontal view of the chest was obtained COMPARISON: DI CHEST,SINGLE VIEW on DOS: 04/14/25 FINDINGS: Lines and Tubes: None Lungs: Clear Pleura: No effusion.No pneumothorax. Cardiomediastinal contours: Unremarkable IMPRESSION: No acute disease. Medical Decision Making Findings Patient presents to the emergency room with shortness of breath. She has responded well to breathing treatment. No rash and I do not feel she is suffering from anaphylaxis. She was watch for time with no return of symptoms. ER precautions discussed in the need to follow up with her neurologist discussed. Departure Disposition: 01 HOME / SELF CARE / HOMELESS Impression: Primary Impression: Dyspnea Additional Impression: Wheezing Condition: Improved Discharge Instructions: Shortness of Breath, Adult, Nvic-eq-Dldi Referrals: NO PRIMARY CARE PROVIDER (PCP) Education Educated: Patient Educated regarding: diagnosis, treatment, need for follow up Signature Scribe Signature: No scribe Attestation: The note accurately reflects work and decisions made by me.Jef Clements MD 04/18/25 22:37 JEF CLEMENTS MD Apr 18, 2025 20:46
--- NOTE | 2025-04-18 20:47 | ELECTROCARDIOGRAPH REPORT ---
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 Eliezer Dietz Measurements Intervals [place] Rate: 108 P: 42 [place]: 141 QRS: 51 QRSD: 93 T: 43 QT: 323 QTc: 433 Interpretive Statements Sinus tachycardia Artifact in lead(s) I,II,III,aVF,V1,V3,V4,V5,V6 and baseline wander in lead(s) V2,V4,V5,V6 Electronically Signed On 04-19-2025 6:16:[address] Eliezer Dietz Please click the below link to view image of tracing.
[2025-04-18 20:58] LABS: BASOPHILS # (AUTO) 0.1 X10'3 (0-0.2); BASOPHILS % (AUTO) 0.4 % (0-1); EOSINOPHILS % (AUTO) 0.3 % (0-6); HEMATOCRIT 46.5 % (35.0-45.0); HEMOGLOBIN 15.8 g/dl (12.0-16.0); LYMPHOCYTES % (AUTO) 10.4 % (21-51); MEAN CORPUSCULAR HEMOGLOBIN 29.4 PG (27.0-31.0); MEAN CORPUSCULAR VOLUME 86.4 FL (78-98); MEAN PLATELET VOLUME 8.1 FL (7.4-10.4); MONOCYTES # (AUTO) 0.5 X10'3 (0-0.9); MONOCYTES % (AUTO) 2.8 % (2-12); NEUTROPHILS # (AUTO) 16.5 X10'3 (1.8-7.7); NEUTROPHILS % (AUTO) 86.1 % (42-75); PLATELET COUNT 310 X10'3 (140-440); RED BLOOD COUNT 5.38 X10'6 (4.20-5.60); RED CELL DISTRIBUTION WIDTH 12.4 % (11.5-14.5); WHITE BLOOD COUNT 19.2 X10'3 (4.5-11.0)
[2025-04-18] MEDS: ipratropium/albuterol 3ml nebule NEB ONE (21:01)
[2025-04-18 21:05] VITALS: PULSE 93; RESP 18
--- NOTE | 2025-04-18 21:07 | RADIOLOGY REPORT ---
CHEST RADIOGRAPH Indication: CP Technique: Single frontal view of the chest was obtained COMPARISON: DI CHEST,SINGLE VIEW on DOS: 04/14/25 FINDINGS: Lines and Tubes: None Lungs: Clear Pleura: No effusion.No pneumothorax. Cardiomediastinal contours: Unremarkable IMPRESSION: No acute disease.
[2025-04-18 21:14] VITALS: PULSE 86; RESP 18; O2SAT 98
[2025-04-18 21:22] LABS: ALBUMIN 4.2 G/DL (3.4-5.0); ANION GAP 12 (8-16); BLOOD UREA NITROGEN 15 MG/DL (7-18); BUN/CREATININE RATIO 14.7 (10.0-20.0); CALCIUM 9.1 MG/DL (8.5-10.1); CHLORIDE 104 MMOL/L (99-107); CREATININE 1.02 MG/DL (0.40-0.90); GLUCOSE 163 MG/DL (70-104); POTASSIUM 4.6 MMOL/L (3.5-5.1); PRO BRAIN NATRIURETIC PEPTIDE < 30 PG/ML (0-125); SODIUM 140 MMOL/L (135-145); TOTAL CARBON DIOXIDE 24.4 MMOL/L (24-32); eCRCL 67 ML/MIN; eGFR 64 ML/MIN
[2025-04-18] MEDS: LORazepam 2 mg/ml vial IV ONE (21:27)
[2025-04-18] MEDS: aspirin 325mg tablet PO ONE (21:27)
[2025-04-18] MEDS: morphine 4 MG/ML inj SYRINge IV ONE (21:27)
[2025-04-18 21:38] VITALS: BP 144/93; PULSE 92; RESP 20; O2SAT 96
[2025-04-18] MEDS: ketorolac trometh 15mg/ml vial 15 MG/ML ML IV ONE (22:47)
[2025-04-18 22:59] VITALS: TEMP 99
== END 2025-04-18 23:04 | disposition home or self-care (01) ==
LOC: ER 20:35
DX: R06.02 Shortness of breath (principal); R06.2 Wheezing; G43.909 Migraine, unspecified, not intractable, without status migrainosus; F12.90 Cannabis use, unspecified, uncomplicated; Z90.49 Acquired absence of other specified parts of digestive tract; Z79.899 Other long term (current) drug therapy
CPT/HCPCS: 36415; 71045; 80048; 83880; 84484; 85025; 93005; 94640; 96374; 96375; 99285; J1885; J2060; J2270; 94760; A4615

== ENCOUNTER 2025-04-19 14:25 | Emergency (ER) | payer MEDICAID ==
[~2025-04-19] VITALS: Ht 162.6 cm; Wt 90.9 kg
[2025-04-19 14:28] VITALS: BP 142/100; PULSE 98; RESP 18; TEMP 98.2; O2SAT 95
[2025-04-19 15:12] LABS: MEAN PLATELET VOLUME 8.3 FL (7.4-10.4); RED CELL DISTRIBUTION WIDTH 12.5 % (11.5-14.5)
--- NOTE | 2025-04-19 15:17 | Physician Documentation ---
History of Present Illness ~ Chief Complaint: Numbness Stated Complaint: LEG NUMBNESS UNABLE TO SPEAK [facility] HPI This is a 29-year-old female who presents with reported bilateral lower extremity numbness and difficulty forming words. Patient reports onset of symptoms or proximally 45 minutes prior to arrival. Patient reports that she has been having similar symptoms recently including numbness in her left arm. Patient reports that she was recently hospitalized for anaphylaxis after a bee sting. Patient reports that she had an MRI recently that showed a problem at the bottom of her brain. Medication Reconciliation Allergies: Uncoded Allergies: BEE/WASP (Allergy, Severe, 04/09/25) Scheduled Dexamethasone (Dexamethasone), 1 TAB PO DAILY Escitalopram Oxalate (Lexapro), 1 TAB PO DAILY, (Reported) Ibuprofen (Ibuprofen), 1 TAB PO Q8H Lamotrigine (Lamotrigine), 1 TAB PO DAILY, (Reported) Methylprednisolone (Medrol Dosepak), 0 PO UD [place]-3 Fatty Acids/Fish Oil ([place] 3 1,000 mg Softgel), 1 CAP PO Q12H Ondansetron 8mg ODT (Ondansetron Odt), 1 TAB PO Q8H Pantoprazole Sodium (Pantoprazole Sodium), 40 MG PO DAILY Sotalol Hcl* (Betapace*), 80 MG PO Q12H Sumatriptan Succinate (Imitrex), 1 TAB PO DAILY, (Reported) Scheduled PRN Butalb/Acetaminophen/Caffeine (Fioricet Tab), 1 TAB PO Q6H PRN for headache Epinephrine (Epipen Jr), 1 SYR IM ONCE PRN for allergies Miscellaneous Medications Sumatriptan Succinate (Sumatriptan Succinate), (Reported) Tirzepatide (Zepbound), 5 MG SUBCUT, (Reported) Discontinued Medications Metoprolol Tartrate* (Metoprolol Tartrate*), 1 TAB PO TID Past Medical History Past Medical History: Headache, Migraine, *CARDIOVASCULAR*, *RENAL/* Past Surgical History: cholecystectomy, other Patient History: Patient reports no known family medical history. Alcohol Use: None Drug Use: marijuana Lives with: Mother Lives In: Home 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 Review of Systems ROS As stated above in the HPI, otherwise all systems are reviewed and negative. Physical Exam Vital Signs: Temperature: 98.2, Source: Temporal, Heart Rate: 98, Respiratory Rate: 18, BP: 142/100, Pulse Oximetry: 95, Weight: 90.900 Oxygen Flow Rate: 0 General Appearance VITALS: Reviewed and as above. GENERAL: Alert, nontoxic appearing, no apparent distress. RESPIRATORY: No increased work of breathing, no respiratory distress, speaking without difficulty NEURO: Decreased sensation to bilateral lower extremities Progress Results/Orders Results/Orders Vital Signs 04/19/25 14:28 Temp 98.2 Pulse 98 Resp 18 B/P (MAP) 142/100 Pulse Ox 95 O2 Flow Rate 0 Laboratory Tests Test 04/19/25 14:39 04/19/25 14:55 Glucometer 95 White Blood Count 14.7 H Red Blood Count 5.07 Hemoglobin 14.7 Hematocrit 44.0 Mean Corpuscular Volume 86.8 Mean Corpuscular Hemoglobin 29.1 Mean Corpuscular Hemoglobin Concent 33.5 Red Cell Distribution Width 12.5 Platelet Count 267 Mean Platelet Volume 8.3 Neutrophils (%) (Auto) 62.2 Lymphocytes (%) (Auto) 28.8 Monocytes (%) (Auto) 7.3 Eosinophils (%) (Auto) 1.1 Basophils (%) (Auto) 0.6 Neutrophils # (Auto) 9.1 H Lymphocytes # (Auto) 4.2 Monocytes # (Auto) 1.1 H Eosinophils # (Auto) 0.2 Basophils # (Auto) 0.1 CBC Comment Sodium Level 140 Potassium Level 3.8 Chloride Level 106 Carbon Dioxide Level 26.3 Anion Gap 8 Blood Urea Nitrogen 16 Creatinine 0.80 Estimated GFR/1.73 m2 84 BUN/Creatinine Ratio 20.0 Glucose Level 98 Calcium Level 8.7 Albumin 3.8 Chemistry Comments Medical Decision Making Findings This 29-year-old female who presented with bilateral numbness to lower extremities and difficulty forming sentences, a stroke alert was initiated however canceled by attending MD. MSE performed in triage, patient hemodynamically stable, patient returned to ED lobby to await the ED room. Patient reported to ED registration she no longer wished to be seen and has eloped from the lobby. Differential Dx:Considerations: Include: Jeong's Palsey, CVA, DKA, Drug overdose, Electrolyte imbalance, Encephalopathy, Hypoxemia, Hypoglycemia, Mass lesion, Subarachnoid Hemorrhage, TIA, Other (Malingering, psychological disorder, anxiety) Departure Disposition: 07 LEFT AWOL/ELOPED Impression: Primary Impression: Numbness Referrals: NO PRIMARY CARE PROVIDER (PCP) Signature Scribe Signature: No scribe Attestation: The note accurately reflects work and decisions made by me.FISH Stuart 14:43 DEE BHARDWAJ Apr 19, 2025 15:17
[2025-04-19 15:20] LABS: CREATININE 0.80 MG/DL (0.40-0.90); TOTAL CARBON DIOXIDE 26.3 MMOL/L (24-32); eCRCL 89 ML/MIN; eGFR 84 ML/MIN
== END 2025-04-19 15:23 | disposition left against medical advice (07) ==
LOC: ER 14:26
DX: R20.0 Anesthesia of skin (principal); F12.90 Cannabis use, unspecified, uncomplicated; Z90.49 Acquired absence of other specified parts of digestive tract; Z91.030 Bee allergy status
CPT/HCPCS: 36415; 80048; 82948; 85025; 99283

== ENCOUNTER 2025-05-04 14:52 | Emergency (ER) | payer MEDICAID ==
[~2025-05-04] VITALS: Ht 162.6 cm; Wt 97.8 kg
--- NOTE | 2025-05-04 14:58 | ELECTROCARDIOGRAPH REPORT ---
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
[2025-05-04 15:06] VITALS: TEMP 98.4
[2025-05-04 15:07] LABS: MEAN PLATELET VOLUME 8.0 FL (7.4-10.4); RED CELL DISTRIBUTION WIDTH 13.2 % (11.5-14.5)
[2025-05-04 15:31] LABS: CREATININE 0.69 MG/DL (0.40-0.90); TOTAL CARBON DIOXIDE 29.0 MMOL/L (24-32); eCRCL 103 ML/MIN; eGFR > 90 ML/MIN
--- NOTE | 2025-05-04 15:33 | RADIOLOGY REPORT ---
EXAM: DI CHEST,SINGLE VIEW Indication: CP Technique: Single frontal view of the chest was obtained Comparison: DI CHEST,SINGLE VIEW on DOS: 04/18/25, DI CHEST,SINGLE VIEW on DOS: 04/14/25, DI CHEST,SING LE VIEW on DOS: 04/09/25, DI CHEST,SINGLE VIEW on DOS: 01/16/25, DI CHEST,SINGLE VIEW on DOS: 11/30/23 FINDINGS: Lines and Tubes: None Lungs: No focal consolidation. Pleura: No effusion. No pneumothorax. Cardiomediastinal contours: Unremarkable Bones: No acute osseous abnormality. IMPRESSION: No acute cardiopulmonary disease.
[2025-05-04 15:36] LABS: PRO BRAIN NATRIURETIC PEPTIDE 61 PG/ML (0-125)
--- NOTE | 2025-05-04 16:58 | Physician Documentation ---
History of Present Illness ~ Chief Complaint: Chest Pain Stated Complaint: CP Time Seen by MD: 16:25 Primary Medical Doctor: veda agudelo HPI 29-year-old female presents to this ED with concerns over chest pain. She does have a history of POTS and states that she has been investigated for some neurologic disorders in the outpatient setting. Today she says she developed l eft-sided sharp chest pain that has reproducible via palpation denies any history of anxiety. She does state that she has inappropriate tachycardia which she was converted out of at [facility]. Day of Onset: May 04, 2025 Tetanus within 5 Years?: Yes Allergies: Uncoded Allergies: BEE/WASP (Allergy, Severe, 04/09/25) Active Prescriptions See Medication Reconciliation Form. Medication Reconciliation Scheduled Dexamethasone (Dexamethasone), 1 TAB PO DAILY Escitalopram Oxalate (Lexapro), 1 TAB PO DAILY, (Reported) Ibuprofen (Ibuprofen), 1 TAB PO Q8H Lamotrigine (Lamotrigine), 1 TAB PO DAILY, (Reported) Methylprednisolone (Medrol Dosepak), 0 PO UD [place]-3 Fatty Acids/Fish Oil ([place] 3 1,000 mg Softgel), 1 CAP PO Q12H Ondansetron 8mg ODT (Ondansetron Odt), 1 TAB PO Q8H Pantoprazole Sodium (Pantoprazole Sodium), 40 MG PO DAILY Sotalol Hcl* (Betapace*), 80 MG PO Q12H Sumatriptan Succinate (Imitrex), 1 TAB PO DAILY, (Reported) Scheduled PRN Butalb/Acetaminophen/Caffeine (Fioricet Tab), 1 TAB PO Q6H PRN for headache Epinephrine (Epipen Jr), 1 SYR IM ONCE PRN for allergies Miscellaneous Medications Sumatriptan Succinate (Sumatriptan Succinate), (Reported) Tirzepatide (Zepbound), 5 MG SUBCUT, (Reported) Past Medical History Past Medical History: Headache, Migraine, *CARDIOVASCULAR*, *RENAL/* Past Surgical History: cholecystectomy, other Patient History: Patient reports no known family medical history. Smoking Status: Never smoker Alcohol Use: None Drug Use: marijuana Lives with: Mother Lives In: Home 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 Physical Exam Vital Signs: Temperature: 98.4, Source: Temporal, Heart Rate: 98, Respiratory Rate: 20, BP: 143/106, Pulse Oximetry: 97, Weight: 97.800 Oxygen Flow Rate: 0 Physical Exam General: Alert, no apparent distress. Respiratory: Lungs clear, no respiratory distress. Chest: No accessory muscle use. left CP reproducable CP Cardiovascular: Regular rate and rhythm, no murmurs. Neurologic: Oriented x4. Psychiatric: Normal mood and affect. Skin: Normal color, warm and dry. No edema, no ecchymosis. Progress Results/Orders Results/Orders Vital Signs 05/04/25 05/04/25 05/04/25 15:06 16:15 17:05 Temp 98.4 Pulse 98 84 Resp 20 20 B/P (MAP) 143/106 115/80 Pulse Ox 97 97 O2 Flow Rate 0 Laboratory Tests Test 05/04/25 14:57 White Blood Count 9.0 Red Blood Count 5.01 Hemoglobin 14.8 Hematocrit 43.4 Mean Corpuscular Volume 86.8 Mean Corpuscular Hemoglobin 29.5 Mean Corpuscular Hemoglobin Concent 34.0 Red Cell Distribution Width 13.2 Platelet Count 348 Mean Platelet Volume 8.0 Neutrophils (%) (Auto) 66.4 Lymphocytes (%) (Auto) 23.9 Monocytes (%) (Auto) 6.5 Eosinophils (%) (Auto) 2.4 Basophils (%) (Auto) 0.8 Neutrophils # (Auto) 6.0 Lymphocytes # (Auto) 2.2 Monocytes # (Auto) 0.6 Eosinophils # (Auto) 0.2 Basophils # (Auto) 0.1 CBC Comment Sodium Level 137 Potassium Level 4.1 Chloride Level 103 Carbon Dioxide Level 29.0 Anion Gap 5 L Blood Urea Nitrogen 10 Creatinine 0.69 Estimated GFR/1.73 m2 > 90 BUN/Creatinine Ratio 14.5 Glucose Level 115 H Calcium Level 8.8 Total Bilirubin 0.3 Aspartate Amino Transf (AST/SGOT) 17 Alanine Aminotransferase (ALT/SGPT) 41 Alkaline Phosphatase 114 Troponin I High Sensitivity < 4 L Troponin I High Sens Percent Delta Troponin I Hi Sens Absolute Change Pro-B-Type Natriuretic Peptide 61 Total Protein 7.7 Albumin 3.9 Globulin 3.8 Albumin/Globulin Ratio 1.0 L Chemistry Comments Medical Decision Making Findings I discussed with the patient and her mother that patient's EKG was normal sinus rhythm, her x-ray showed no signs of infiltrate nor was a concerning for cardiomegaly. Additionally her laboratory values were within normal limits. I explained to her that because her left chest pain is reproducible it is likely secondary to a costochondritis or chest wall pain diagnosis not limiting other diagnoses however Offered Toradol patient declined. This patient appears to have a psychiatric element to her presentation along with the other nonspecific complaints. I recommended that they follow up in the outpatient setting as it seems that they have several specialists following her Differential Dx:Considerations: Include: Chest wall contusion, Flail chest, Myocardial contusion, Pneumothorax, Pulmonary contusion, Rib fracture, Renal contusion, Splenic fracture, Tension pneumothorax, Other Departure Disposition: 01 HOME / SELF CARE / HOMELESS Impression: Primary Impression: Tenderness of chest wall Condition: Stable Discharge Instructions: Nonspecific Chest Pain, Adult Referrals: NO PRIMARY CARE PROVIDER (PCP) Education Educated: Patient Educated regarding: diagnosis Signature Scribe Signature: 6 Attestation: Scribed for Cade Marr Plastic Welding Machine Operator by Cade Cueva NP . 05/04/25 18:38 CADE MARR NP May 04, 2025 16:58
[2025-05-04 17:05] VITALS: BP 115/80; PULSE 84; RESP 20; O2SAT 97
--- NOTE | 2025-05-04 17:10 | Physician Documentation ---
History of Present Illness ~ Chief Complaint: Chest Pain Stated Complaint: CP Time Seen by MD: 16:25 Primary Medical Doctor: veda agudelo HPI 29-year-old female presents to the ED with a history of RUCKER, and they reported neurological problem he is being investigated Day of Onset: May 04, 2025 Tetanus within 5 Years?: Yes Allergies: Uncoded Allergies: BEE/WASP (Allergy, Severe, 04/09/25) Active Prescriptions See Medication Reconciliation Form. Medication Reconciliation Scheduled Dexamethasone (Dexamethasone), 1 TAB PO DAILY Escitalopram Oxalate (Lexapro), 1 TAB PO DAILY, (Reported) Ibuprofen (Ibuprofen), 1 TAB PO Q8H Lamotrigine (Lamotrigine), 1 TAB PO DAILY, (Reported) Methylprednisolone (Medrol Dosepak), 0 PO UD [place]-3 Fatty Acids/Fish Oil ([place] 3 1,000 mg Softgel), 1 CAP PO Q12H Ondansetron 8mg ODT (Ondansetron Odt), 1 TAB PO Q8H Pantoprazole Sodium (Pantoprazole Sodium), 40 MG PO DAILY Sotalol Hcl* (Betapace*), 80 MG PO Q12H Sumatriptan Succinate (Imitrex), 1 TAB PO DAILY, (Reported) Scheduled PRN Butalb/Acetaminophen/Caffeine (Fioricet Tab), 1 TAB PO Q6H PRN for headache Epinephrine (Epipen Jr), 1 SYR IM ONCE PRN for allergies Miscellaneous Medications Sumatriptan Succinate (Sumatriptan Succinate), (Reported) Tirzepatide (Zepbound), 5 MG SUBCUT, (Reported) Past Medical History Past Medical History: Headache, Migraine, *CARDIOVASCULAR*, *RENAL/* Past Surgical History: cholecystectomy, other Patient History: Patient reports no known family medical history. Smoking Status: Never smoker Alcohol Use: None Drug Use: marijuana Lives with: Mother Lives In: Home 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 Physical Exam Vital Signs: Temperature: 98.4, Source: Temporal, Heart Rate: 98, Respiratory Rate: 20, BP: 143/106, Pulse Oximetry: 97, Weight: 97.800 Oxygen Flow Rate: 0 Progress Results/Orders Results/Orders Vital Signs 05/04/25 05/04/25 05/04/25 15:06 16:15 17:05 Temp 98.4 Pulse 98 84 Resp 20 20 B/P (MAP) 143/106 115/80 Pulse Ox 97 97 O2 Flow Rate 0 Laboratory Tests Test 05/04/25 14:57 White Blood Count 9.0 Red Blood Count 5.01 Hemoglobin 14.8 Hematocrit 43.4 Mean Corpuscular Volume 86.8 Mean Corpuscular Hemoglobin 29.5 Mean Corpuscular Hemoglobin Concent 34.0 Red Cell Distribution Width 13.2 Platelet Count 348 Mean Platelet Volume 8.0 Neutrophils (%) (Auto) 66.4 Lymphocytes (%) (Auto) 23.9 Monocytes (%) (Auto) 6.5 Eosinophils (%) (Auto) 2.4 Basophils (%) (Auto) 0.8 Neutrophils # (Auto) 6.0 Lymphocytes # (Auto) 2.2 Monocytes # (Auto) 0.6 Eosinophils # (Auto) 0.2 Basophils # (Auto) 0.1 CBC Comment Sodium Level 137 Potassium Level 4.1 Chloride Level 103 Carbon Dioxide Level 29.0 Anion Gap 5 L Blood Urea Nitrogen 10 Creatinine 0.69 Estimated GFR/1.73 m2 > 90 BUN/Creatinine Ratio 14.5 Glucose Level 115 H Calcium Level 8.8 Total Bilirubin 0.3 Aspartate Amino Transf (AST/SGOT) 17 Alanine Aminotransferase (ALT/SGPT) 41 Alkaline Phosphatase 114 Troponin I High Sensitivity < 4 L Troponin I High Sens Percent Delta Troponin I Hi Sens Absolute Change Pro-B-Type Natriuretic Peptide 61 Total Protein 7.7 Albumin 3.9 Globulin 3.8 Albumin/Globulin Ratio 1.0 L Chemistry Comments Medical Decision Making Findings EKG laboratory values and x-ray are all reassuring. Advised the patient's follow up in the outpatient Differential Dx:Considerations: Include: Chest wall contusion, Flail chest, Myocardial contusion, Pneumothorax, Pulmonary contusion, Rib fracture, Renal contusion, Splenic fracture, Tension pneumothorax, Other Departure Disposition: HOME / SELF CARE / HOMELESS Impression: Primary Impression: Chest wall pain Condition: Improved Discharge Instructions: Chest Wall Pain Referrals: NO PRIMARY CARE PROVIDER (PCP) Signature Scribe Signature: d Attestation: Scribed for Cade Littlejohn [employer]ious Weeds And Pest Inspector by Cade Cueva NP . 05/04/25 18:41 CADE LITTLEJOHN NP May 04, 2025 17:10
== END 2025-05-04 17:08 | disposition home or self-care (01) ==
LOC: ER 14:52
DX: R07.89 Other chest pain (principal); F12.90 Cannabis use, unspecified, uncomplicated; G43.909 Migraine, unspecified, not intractable, without status migrainosus; Z79.52 Long term (current) use of systemic steroids; Z79.899 Other long term (current) drug therapy; Z90.49 Acquired absence of other specified parts of digestive tract
CPT/HCPCS: 36415; 71045; 80053; 83880; 84484; 85025; 93005; 99285

== ENCOUNTER 2025-05-30 09:40 | Outpatient (CLI) | payer MEDICAID ==
--- NOTE | 2025-05-30 12:19 | PROCEDURE NOTE ---
Procedure Note Providers to CC ~ Interpretation: [place] EEG Note # Demographics Type of EEG Read: - Routine EEG - video Patient Location: Outpatient First Name: Melvina Last Name: Haroon Date of : 1995 Age: 30 Gender: Female Facility: [facility] Time of Initial Page (): 05/30/2025 11:32 First Contact with Site ( Time): 05/30/2025 11:33 # EEG Interpretation Start Time of EEG Read (): 05/30/2025 10:13 Stop Time of EEG Read (): 05/30/2025 10:37 Duration: 0h 24m Technical Details: - The EEG electrodes were placed using the standard International 10-20 system of electrode placement. Video and an accessory EKG lead were used during the course of this study. - This study was recorded using the [employer] EEG software Indication: - seizure # Description Photic Stimulation: Performed Hyperventilation: NOT performed Phases Captured: - awake - drowsy Symmetry: symmetric Posterior Dominant Rhythm: - present, attenuates on eye opening 9.5Hz Predominant Frequencies: - posterior dominant alpha (8-12 Hz) - abundant (50-89%) Superimposed Frequencies: - theta (4-7 Hz) - rare (<1%) Amplitude: normal Reactivity: yes Variability: yes Continuity: continuous EKG: NSR # Abnormalities Epileptiform Abnormalities: - NOT present Focal Slowing: no Seizure: - NOT present # Impression Impression: normal # Clinical Correlation Clinical Correlation: This is a normal EEG in the awake and drowsy state. No epileptiform discharges, focal slowing, or seizures were seen. A normal EEG does not exclude nor support the diagnosis of epilepsy. # Demographics First Name: Melvina Last Name: Haroon Facility: [facility] CORWIN FERREIRA MD May 30, 2025 12:19
== END 2025-05-30 23:59 | disposition home or self-care (01) ==
LOC: RAD 09:40
PROVIDERS: ATTEND Nurse Practitioner Family
DX: G62.9 Polyneuropathy, unspecified (principal); G37.9 Demyelinating disease of central nervous system, unspecified
CPT/HCPCS: 95819

== ENCOUNTER 2025-06-07 21:39 | Emergency (ER) | payer MEDICAID ==
[~2025-06-07] VITALS: Ht 162.6 cm; Wt 90.9 kg
[~2025-06-07 21:39] MED LIST changes: -IBUP-1985 PO; +IBUP600T52 PO
--- NOTE | 2025-06-07 21:51 | ELECTROCARDIOGRAPH REPORT ---
[facility] Test Date: 2025-06-07 Test Time: 21:50:05 Pat Name: CATHY RODRIGUEZ Department: EMERGENCY ROOM Room: Gender: F Pedigree Researcher: : 1995 Requested By: PHYLLIS PINTO Order Number: [id number] Reading MD: Measurements Intervals [place] Rate: 89 P: 25 SD: 189 QRS: 16 QRSD: 90 T: 18 QT: 349 QTc: 425 Interpretive Statements Sinus rhythm Please click the below link to view image of tracing.
[2025-06-07 22:25] LABS: MEAN PLATELET VOLUME 7.7 FL (7.4-10.4); RED CELL DISTRIBUTION WIDTH 13.0 % (11.5-14.5)
[2025-06-07 22:44] LABS: CREATININE 0.71 MG/DL (0.40-0.90); PRO BRAIN NATRIURETIC PEPTIDE < 30 PG/ML (0-125); TOTAL CARBON DIOXIDE 28.3 MMOL/L (24-32); eCRCL 99 ML/MIN; eGFR > 90 ML/MIN
--- NOTE | 2025-06-07 22:54 | RADIOLOGY REPORT ---
CHEST RADIOGRAPH Indication: CP Technique: Single frontal view of the chest was obtained Comparison: DI CHEST,SINGLE VIEW on DOS: 05/04/25, DI CHEST,SINGLE VIEW on DOS: 04/18/25, DI CHEST,SING LE VIEW on DOS: 04/14/25, CT CTA CHEST PE W/ IV CONTRAST on DOS: 04/09/25, DI CHEST,SINGLE VIEW on DOS: 04/09/25 FINDINGS: Lines and Tubes: None Lungs: No focal consolidation. Pleura: No effusion. No pneumothorax. Cardiomediastinal contours: Unremarkable Bones: No acute osseous abnormality. IMPRESSION: 1. No acute cardiopulmonary disease.
[2025-06-08 00:07] VITALS: BP 120/48; PULSE 86; RESP 24; TEMP 97.8; O2SAT 97
--- NOTE | 2025-06-08 01:16 | Physician Documentation ---
History of Present Illness ~ General Chief Complaint: Multiple Medical Complaints Stated Complaint: MIGRAIN Time Seen by MD: 01:09 Primary Medical Doctor: veda agudelo History of Present Illness Initial Comments Patient presents to the emergency room for evaluation of right-sided chest pain of sudden onset/at a proximally 1 minute. No prior instances. She is concerned because P radiating into her right side of her neck. Although symptoms have generally resolved she still has a little bit of discomfort in her right neck. No shortness of breaths. No one-sided leg pain. Patient does have history of migraines and took some Imitrex earlier. Medication Reconciliation Allergies: Uncoded Allergies: BEE/WASP (Allergy, Severe, 04/09/25) Scheduled Dexamethasone (Dexamethasone), 1 TAB PO DAILY Escitalopram Oxalate (Lexapro), 1 TAB PO DAILY, (Reported) Ibuprofen (Ibuprofen), 1 TAB PO Q8H Lamotrigine (Lamotrigine), 1 TAB PO DAILY, (Reported) Methylprednisolone (Medrol Dosepak), 0 PO UD [place]-3 Fatty Acids/Fish Oil ([place] 3 1,000 mg Softgel), 1 CAP PO Q12H Ondansetron 8mg ODT (Ondansetron Odt), 1 TAB PO Q8H Pantoprazole Sodium (Pantoprazole Sodium), 40 MG PO DAILY Sotalol Hcl* (Betapace*), 80 MG PO Q12H Sumatriptan Succinate (Imitrex), 1 TAB PO DAILY, (Reported) Scheduled PRN Butalb/Acetaminophen/Caffeine (Fioricet Tab), 1 TAB PO Q6H PRN for headache Epinephrine (Epipen Jr), 1 SYR IM ONCE PRN for allergies Miscellaneous Medications Sumatriptan Succinate (Sumatriptan Succinate), (Reported) Tirzepatide (Zepbound), 5 MG SUBCUT, (Reported) Past Medical History Past Medical History: Headache, Migraine, *CARDIOVASCULAR*, *RENAL/* Past Surgical History: cholecystectomy, other Patient History: Patient reports no known family medical history. Alcohol Use: None Drug Use: marijuana Lives with: Mother Lives In: Home 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 Review of Systems ROS All review of systems negative except as per HPI Physical Exam Physical Exam Vital Signs: Temperature: 97.8, Source: Oral, Heart Rate: 86, Respiratory Rate: 24, BP: 120/48, Pulse Oximetry: 97, Weight: 90.910 Oxygen Flow Rate: 0 Physical Exam General: Patient is awake, alert, oriented x4 in no acute distress and well appearing.~ Head: Normocephalic and atraumatic. Eyes: Conjunctival normal. EOMI. PERRL. ENT: Mucous membranes moist. Neck: Supple, trachea is midline. Chest: Clear to auscultation bilaterally without rales, rhonchi, or wheezes. There is no accessory muscle use or retractions. Cardiac: RRR without murmurs, gallops, or rubs. Abd: Soft, nondistended, nontender, with normoactive bowel sounds. No guarding, rebound, or rigidity. Extremities: Normal strength. Normal range of motion. No deformities or edema. No calf tenderness to palpation Progress Results/Orders Results/Orders Orders - PHYLLIS CLEMENTS MD Chest,Single View (06/07/25 22:31) Monitor (06/07/25 21:46) Saline Lock (06/07/25 21:46) Oxygen (06/07/25 21:46) Completed Orders - PHYLLIS CLEMENTS MD Chest,Single View (06/07/25 22:31) Cbc/Diff (06/07/25 21:46) BMP (06/07/25 21:46) PBNP (06/07/25 21:46) Electrocardiogram (06/07/25 21:46) Hs Troponin I W Calculations (06/07/25 21:46) Hs Troponin I W Calculations (06/07/25 23:46) Hs Troponin I W Calculations (06/08/25 00:46) Vital Signs 06/07/25 06/08/25 21:43 00:07 Temp 97.8 97.8 Pulse 79 86 Resp 16 24 B/P (MAP) 161/94 120/48 (72) Pulse Ox 99 97 O2 Flow Rate 0 0 Laboratory Tests Test 06/07/25 22:17 06/08/25 00:16 06/08/25 01:17 White Blood Count 10.7 Red Blood Count 5.22 Hemoglobin 15.5 Hematocrit 44.8 Mean Corpuscular Volume 86.0 Mean Corpuscular Hemoglobin 29.7 Mean Corpuscular Hemoglobin Concent 34.5 Red Cell Distribution Width 13.0 Platelet Count 326 Mean Platelet Volume 7.7 Neutrophils (%) (Auto) 61.5 Lymphocytes (%) (Auto) 29.5 Monocytes (%) (Auto) 5.3 Eosinophils (%) (Auto) 2.9 Basophils (%) (Auto) 0.8 Neutrophils # (Auto) 6.6 Lymphocytes # (Auto) 3.1 Monocytes # (Auto) 0.6 Eosinophils # (Auto) 0.3 Basophils # (Auto) 0.1 CBC Comment Sodium Level 141 Potassium Level 3.9 Chloride Level 103 Carbon Dioxide Level 28.3 Anion Gap 10 Blood Urea Nitrogen 9 Creatinine 0.71 Estimated GFR/1.73 m2 > 90 BUN/Creatinine Ratio 12.7 Glucose Level 105 H Calcium Level 9.3 Troponin I High Sensitivity < 4 L < 4 L < 4 L Troponin I High Sens Percent Delta Troponin I Hi Sens Absolute Change Pro-B-Type Natriuretic Peptide < 30 Albumin 4.1 Chemistry Comments EKG/XRAY/CT/US/VASC/MRI EKG : Additional Comment EKG interpreted by myself shows time of 2150, rate 89, sinus rhythm, normal axis, no ST changes Chest X-Ray : Additional Comments Exam: CHEST,SINGLE VIEW CHEST RADIOGRAPH Indication: CP Technique: Single frontal view of the chest was obtained Comparison: DI CHEST,SINGLE VIEW on DOS: 05/04/25, DI CHEST,SINGLE VIEW on DOS: 04/18/25, DI CHEST,SINGLE VIEW on DOS: 04/14/25, CT CTA CHEST PE W/ IV CONTRAST on DOS: 04/09/25, DI CHEST,SINGLE VIEW on DOS: 04/09/25 FINDINGS: Lines and Tubes: None Lungs: No focal consolidation. Pleura: No effusion. No pneumothorax. Cardiomediastinal contours: Unremarkable Bones: No acute osseous abnormality. IMPRESSION: 1. No acute cardiopulmonary disease. Medical Decision Making Findings Patient presents to the emergency room with atypical right-sided chest pain as per HPI. Differentials include but are not limited to ACS pulmonary embolism aortic pathology musculoskeletal pain esophageal spasm therefore emergent labs and imaging indicated. Chest x-ray is reassuring troponins negative x2. Patient with a heart score of 0. I suspect musculoskeletal spasm. ER precautions discussed. No calf pain and no tachycardia no hypoxia and he had not feel patient requires investigation into possible pulmonary embolism although this was considered Departure Disposition: 01 HOME / SELF CARE / HOMELESS Impression: Primary Impression: Chest wall pain Condition: Stable Discharge Instructions: Chest Wall Pain, [id number] Referrals: NO PRIMARY CARE PROVIDER (PCP) Education Educated: Patient, Family Educated regarding: diagnosis, treatment Signature Scribe Signature: No scribe Attestation: The note accurately reflects work and decisions made by me.Phyllis Clements MD 06/08/25 01:29 PHYLLIS CLEMENTS MD Jun 08, 2025 01:16
[2025-06-08] MEDS: ketorolac trometh 30MG/ML vial 30 MG/ML VIAL IM ONE (02:05)
== END 2025-06-08 02:11 | disposition home or self-care (01) ==
LOC: ER 21:40
DX: R07.89 Other chest pain (principal); F12.90 Cannabis use, unspecified, uncomplicated; Z90.49 Acquired absence of other specified parts of digestive tract; Z79.899 Other long term (current) drug therapy
CPT/HCPCS: 36415; 71045; 80048; 83880; 84484; 85025; 93005; 96372; 99285; J1885

== ENCOUNTER 2025-09-07 12:36 | Emergency (ER) | payer MEDICAID ==
[~2025-09-07] VITALS: Ht 160 cm; Wt 92.6 kg
[2025-09-07 12:39] VITALS: TEMP 97
--- NOTE | 2025-09-07 14:19 | Physician Documentation ---
History of Present Illness ~ Chief Complaint: Headache Stated Complaint: HEADACHE Time Seen by MD: 12:50 Primary Medical Doctor: [facility] HPI 30-year-old female being follow up by Neurology and Ophthalmology for demyelinating dx. Saw optometry two days ago had a glaucoma test or a subsequently he has caused your frontal headache. No neuro deficits and she is grossly neurologically intact. Pain is behind the right eye and right forehead. He has equal facial symmetry and she has clear speech. There was no upper or lower extremity weakness. No recent other illness or injury or reported fever. Otherwise doing well Medication Reconciliation Allergies: Coded Allergies: prochlorperazine (Verified Allergy, Severe, agitation, 09/07/25) Scheduled Dexamethasone (Dexamethasone), 1 TAB PO DAILY Escitalopram Oxalate (Lexapro), 1 TAB PO DAILY, (Reported) Ibuprofen (Ibuprofen), 1 TAB PO Q8H Lamotrigine (Lamotrigine), 1 TAB PO DAILY, (Reported) Methylprednisolone (Medrol Dosepak), 0 PO UD [place]-3 Fatty Acids/Fish Oil ([place] 3 1,000 mg Softgel), 1 CAP PO Q12H Ondansetron 8mg ODT (Ondansetron Odt), 1 TAB PO Q8H Pantoprazole Sodium (Pantoprazole Sodium), 40 MG PO DAILY Sotalol Hcl* (Betapace*), 80 MG PO Q12H Sumatriptan Succinate (Imitrex), 1 TAB PO DAILY, (Reported) Scheduled PRN Butalb/Acetaminophen/Caffeine (Fioricet Tab), 1 TAB PO Q6H PRN for headache Epinephrine (Epipen Jr), 1 SYR IM ONCE PRN for allergies Miscellaneous Medications Sumatriptan Succinate (Sumatriptan Succinate), (Reported) Tirzepatide (Zepbound), 5 MG SUBCUT, (Reported) Past Medical History Past Medical History: Headache, Migraine, *CARDIOVASCULAR*, *RENAL/* Past Surgical History: cholecystectomy, other Patient History: Patient reports no known family medical history. Alcohol Use: None Drug Use: marijuana Lives with: Mother Lives In: Home 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 Review of Systems All Other Systems at this time: Reviewed and Negative Neurological: Reports: headache Physical Exam Vital Signs: RN Vital Signs have been reviewed: Yes, Temperature: 97.0, Source: Temporal, Heart Rate: 83, Respiratory Rate: 18, BP: 121/64, Pulse Oximetry: 97, Weight: 92.600 Oxygen Flow Rate: 0 General Appearance: alert, WD/WN, mild distress ENT: normal ENT inspection, PERRL/EOMI, TMs normal, moist mucous membranes, photophobia; No: eye discharge, pale conjunctivae (R), pale conjunctivae (L), scleral icterus (R), scleral icterus (L) Nose: normal inspection Oropharynx: normal inspection Head: normal inspection Neck: non-tender Respiratory: lungs clear Chest: no accessory muscle use Cardiovascular: normal peripheral pulses, regular rate, rhythm Gastrointestinal: normal palpation Back: normal inspection Extremities: normal inspection Neurologic: oriented x4, assistant teacher II-XII nml as tested, memory intact Motor / Sensory: no motor deficit, no sensory deficit, no pronator drift Cerebellar function exam: normal Psychiatric: normal mood/affect Progress Results/Orders Results/Orders Orders - DAWNA VALLADARES PAC Ct Head (09/07/25 14:06) Completed Orders - DAWNA VALLADARES PAC Ct Head (09/07/25 14:06) Ketorolac Trometh 15mg/Ml Vial (Toradol (09/07/25 14:30) Ketorolac Trometh 30mg/Ml Vial (Toradol (09/07/25 14:35) Vital Signs 09/07/25 12:39 Temp 97.0 Pulse 83 Resp 18 B/P (MAP) 121/64 Pulse Ox 97 O2 Flow Rate 0 Medical Decision Making Additional information obtaine: N/A Findings 30-year-old female with known medical history of demyelinating disease presents with headache post ophthalmological evaluation. We will can with CT imaging to evaluate for new processes. Patient is grossly neurologically intact without focal neuro deficits. CT imaging reviewed and discussed with the patient. She has received a Toradol injection in the emergency department. She will follow up with Neurology and her optometry for further workup. Safely discharged in the emergency department without focal neuro deficits. Differential Dx:Considerations: Include: SAORES-Cluster, SOARES-Migraine, SOARES- Hypertensive, SOARES-Muscular contraction, CVA, Hemorrhage-Intracerebral, Post- traumtic, Pseudotumor cerebri, Temporal arteritis, Trigeminal neuralgia, Other (Optic neuritis) Departure Disposition: HOME / SELF CARE / HOMELESS Impression: Primary Impression: Headache Qualified Codes: R51.9 - Headache, unspecified Condition: Improved Discharge Instructions: Headache Additional Instructions: Your CT imaging today is reassuring. Please keep your scheduled Neurology in optometry follow up appointments. You received a single injection of Toradol in the emergency department to assist with the mitigation of your post ophthalmological procedural headache. Please return as needed, thank you for visiting emergency department of [facility]. Referrals: NO PRIMARY CARE PROVIDER (PCP) Education Educated: Patient Educated regarding: diagnosis, treatment, prognosis, need for follow up Signature Scribe Signature: . Attestation: . DAWNA VALLADARES PAC Sep 07, 2025 14:19
--- NOTE | 2025-09-07 14:22 | RADIOLOGY REPORT ---
EXAM: CT CT HEAD INDICATION: Headache r/o Psuedotumor cerebri TECHNIQUE: CT images of the head were obtained without administration of IV contrast. CT scans at this facility use dose modulation, iterative reconstruction, and/or weight based dosing when appropriate to reduce radiation dose to as low as reasonably achievable. COMPARISON: MR MRI HEAD on DOS: 04/15/25 FINDINGS: PARENCHYMA: No acute hemorrhage. There is no mass effect, midline shift, or herniation. There is preservation of the stevens white differentiation. VENTRICLES: No hydrocephalus. EXTRA-AXIAL SPACES: No extra-axial fluid collections. OTHER: The bony structures are intact. Visualized portions of the paranasal sinuses and mastoid air cells are clear. IMPRESSION: 1. No CT evidence of an acute intracranial abnormality.
[2025-09-07] MEDS: ketorolac trometh 15mg/ml vial 15 MG/ML ML IM ONE (14:30)
[2025-09-07] MEDS: ketorolac trometh 30MG/ML vial 30 MG/ML VIAL IM ONE (17:00)
[2025-09-07 17:04] VITALS: BP 139/89; PULSE 87; RESP 20; O2SAT 99
== END 2025-09-07 17:05 | disposition home or self-care (01) ==
LOC: ER 12:36
DX: G43.909 Migraine, unspecified, not intractable, without status migrainosus (principal); F12.90 Cannabis use, unspecified, uncomplicated; Z88.8 Allergy status to other drugs, medicaments and biological substances; Z90.49 Acquired absence of other specified parts of digestive tract; Z79.899 Other long term (current) drug therapy
CPT/HCPCS: 70450; 96372; 99285; J1885